=== PATIENT | female | born 1960 | race African-American/Black ===

== ENCOUNTER 2017-01-07 14:13 | Inpatient (IN) ==
[2017-01-07] MEDS ORDERED: 0.9 % Sodium Chloride 1,000 ML IVC ONE ×2 (14:18→16:21)
[2017-01-07] MEDS ORDERED: Ipratropium/Albuterol Neb 3 ML IH ONE (14:20)
[2017-01-07] MEDS ORDERED: Ipratropium/Albuterol Neb 3 ML ONE (14:35)
--- NOTE | 2017-01-07 14:44 | Emergency Department Note ---
START Narrative - START START: I examined this patient and my medical decision-making was reviewed with the EXPLOSIVE OPERATOR FUSE/PA/Advanced Practice Nurse/Resident Physician. I agree with the documented findings, disposition and treatment plan as described except to the extent set forth below. Patient to ED from a dog day care[facility]. Started getting short of breath around 1: 30. Patient has Cristina's. On examination she makes eye contact. She nods appropriately. She is tachypneic with some accessory muscle use. Diffuse rhonchi. Left leg contracted. Plan. Dyspnea workup. Nebs. We will trial BiPAP. Awaiting family arrival. Patient with a large infiltrate on chest x-ray. We will check CTA. Starting antibiotic. 35 minutes of critical care exclusive of separately billable procedures.
[2017-01-07] MEDS ORDERED: *HR* LORazepam 2 MG/ML VIAL IVP ONE (14:55)
[2017-01-07] MEDS ORDERED: Meropenem 1,000 MG in 0.9 % Sodium Chloride Mini Bag 100 ML IVPB STA (15:01)
[2017-01-07 15:02] LABS: VBG HCO3 30.5 mEq/L (21-27); VBG PH 7.43 pH Units (7.32-7.42)
[2017-01-07] MEDS ORDERED: Levofloxacin 500 MG/100 ML 500 MG/100 ML BAG IVPB ONE (15:03)
[2017-01-07 15:05] LABS: Basophils # 0.1 K/mcL (0.0-0.2); Basophils % 0.2 %; Hemoglobin 11.3 g/dL (11.5-15.4); Immature Granulocytes % 1.6 % (0-4); Mean Corpuscular HGB Conc 33.2 g/dL (31.6-35.5); Mean Corpuscular Hemoglobin 29.6 pg (28.0-33.3); Mean Platelet Volume 10.3 fL (9.4-12.4); Monocytes # 0.6 K/mcL (0.0-1.3); Monocytes % 2.3 %; Neutrophils # 21.8 K/mcL (1.6-8.9); Platelet Count 421 K/mcL (140-400); Red Blood Count 3.82 M/mcL (3.82-4.97); Red Cell Distribution Width 12.8 % (11.5-14.5); Segmented Neutrophils % 91.9 %
[2017-01-07 15:07] LABS: INR 1.2; Prothrombin Time 12.6 Seconds (9.4-12.1)
[2017-01-07 15:14] LABS: Alanine Aminotransferase 157 Units/L (0-55); Albumin/Globulin Ratio 0.3 (1.1-2.2); Alkaline Phosphatase 297 Units/L (38-126); Aspartate Amino Transferase 39 Units/L (5-34); BUN/Creatinine Ratio 33 (6-26); Bilirubin,Direct 0.5 mg/dL (0.0-0.5); Bilirubin,Indirect 0.1 mg/dL (0.0-1.2); Bilirubin,Total 0.6 mg/dL (0.2-1.2); Blood Urea Nitrogen 28 mg/dL (7-20); Calcium 9.7 mg/dL (8.6-10.8); Carbon Dioxide 29 mEq/L (19-29); Chloride 100 mEq/L (98-109); Globulin 4.5 g/dL (2.4-3.5); Glucose 143 mg/dL (70-99); Magnesium 1.3 mg/dL (1.6-2.6); Osmolality,Calculated 290 (280-300); Phosphorous 2.3 mg/dL (2.3-4.7); Potassium 3.9 mEq/L (3.5-4.5); Sodium 136 mEq/L (136-145); eGFR For African Americans > 60 (> 60); eGFR For Non-African Americans > 60 (> 60)
[2017-01-07 15:15] LABS: Albumin 1.5 g/dL (3.5-5.0)
[2017-01-07 16:16] LABS: Bilirubin,Urine Small (Negative); Blood,Urine Small (Negative); Clarity,Urine Cloudy (Clear); Color,Urine Dark Yellow (Yellow); Glucose,Urine (UA) Normal (Normal); Ketones,Urine Negative (Negative); Leukocyte Esterase,Urine Small (Negative); Nitrite,Urine Negative (Negative); Protein,Urine 30 mg/dL (Neg-Trace); Specific Gravity,Urine 1.025 (1.010-1.025); Urobilinogen,Urine Normal (Normal)
[2017-01-07 16:18] LABS: Bacteria,Urine Few per hpf (None-Few); RBC,Urine 15-30 per hpf (0-3); Squamous Epithelial Cell,Urine Many per lpf (None-Few); WBC,Urine 15-30 per hpf (0-3)
[2017-01-07 16:28] LABS: Hyaline Casts,Urine Moderate per lpf (None-Few); Renal Epithelial Cells,Urine Few per hpf (None-Few)
--- NOTE | 2017-01-07 17:08 | Emergency Department Note ---
Disposition Clinical Impression: Septic shock Pneumonia Qualifiers: Pneumonia type: aspiration pneumonia Aspiration pneumonia type: unspecified Laterality: bilateral Lung location: lower lobe of lung Qualified Code(s): J69.0 - Pneumonitis due to inhalation of food and vomit Disposition: Admitted As Inpatient Condition: Serious Time of Disposition: 17:34 SOB HPI - General Chief Complaint: ED Shortness of Breath/Dyspnea Stated Complaint: DELMA Time Seen by Provider: 01/07/17 14:18 Source: patient Limitations: no limitations Nursing Notes Reviewed: Yes Vital Signs Reviewed: Yes - History of Present Illness Patient has no history of [place]'s. Patient presents for evaluation of shortness of breath. Patient is able to respond with yes and no questions as reported baseline. Patient was found to be hypoxic upon arrival. Patient arrives receiving high flow nasal cannula. Mild tachypnea. Patient has diffuse rhonchorous sounds with some associated wheezing. Patient's paperwork states full code. - Related Data Home Medications Medication Instructions Recorded Confirmed Bupropion HCl [Wellbutrin Xl] 300 mg PO DAILY 01/07/17 01/07/17 Cetirizine HCl [Zyrtec] 10 mg PO DAILY 01/07/17 01/07/17 Escitalopram [Lexapro] 20 mg PO DAILY 01/07/17 01/07/17 Haloperidol [Haldol] 1.5 mg PO BID 01/07/17 01/07/17 Lactose-Reduced Food [Ensure Plus] 1 bottle PO 5XD 01/07/17 01/07/17 Naproxen [Naprosyn] 500 mg PO BID 01/07/17 01/07/17 Omeprazole [PriLOSEC] 20 mg PO DAILY 01/07/17 01/07/17 Simvastatin [Zocor] 40 mg PO HS 01/07/17 01/07/17 Water for Irrigation (sterile) 100 ml IR 10XD 01/07/17 01/07/17 [Water for irrigation (sterile)] traZODone [TraZODone] 50 mg PO HS PRN 01/07/17 01/07/17 Allergies Allergy/AdvReac Type Severity Reaction Status Date / Time Penicillins Allergy Rash Verified 08/26/16 18:03 Limitations: ROS unobtainable due to patients medical condition Past Medical History - Past Medical History Medical history: Reports: arthritis, dementia, GERD, hyperlipidemia, hypertension, other Psychiatric history: Reports: depression 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 Not conversant. Mild tachypnea. Eyes: anicteric sclerae, moist conjunctivae; PERRL HENT: Atraumatic; oropharynx clear with moist mucous membranes and no mucosal ulcerations Neck: Normal inspection; Trachea midline; FROM, supple Lungs: Diffuse rhonchorous lung sounds with wheezing. CV: RRR, Abdomen: Soft, non-tender; no rebound or gaurding Extremities: No peripheral edema or extremity lymphadenopathy Skin: Normal temperature; no rash, ulcers or lesions Neuro: awake and responds with headshaking but minimal communication. - General General appearance: alert, in no apparent distress Course - Reevaluation(s) Reevaluation #1: Pt not tolerating BIPAP. Will place on face-mask. Reevaluation #2: Pt tolerating facemask. - Consultations Consultation #1: Discussed with hospitalistJeremiah. Patient accepted for admission. 1706. Vital Signs Temperature 97.8 F 01/07/17 14:15 Pulse Rate 97 01/07/17 14:15 Respiratory Rate 16 01/07/17 14:15 Blood Pressure 93/66 01/07/17 14:15 O2 Sat by Pulse Oximetry 88 01/07/17 14:15 Temperature 98.4 F 01/09/17 19:48 Pulse Rate 67 01/09/17 22:00 Respiratory Rate 15 01/09/17 22:00 Blood Pressure 89/48 01/09/17 22:00 O2 Sat by Pulse Oximetry 94 01/09/17 22:00 Oxygen Delivery Oxygen Delivery Simple Mask Shortness of Breath/Dyspnea - Medical Records Medical records reviewed: Yes I reviewed the patient's medical records. - Lab Data Lab results reviewed: Yes I reviewed the patient's lab results. Result diagrams: 01/09/17 02:37 01/09/17 01:02 Lab Results 01/07/17 01/07/17 01/07/17 Range/Units 14:46 14:46 14:46 WBC 23.7 H (4.3-11.1) K/mcL RBC 3.82 (3.82-4.97) M/mcL Hgb 11.3 L (11.5-15.4) g/dL Hct 34.0 L (35.3-44.9) % MCV 89.0 (83.0-100.0) fL MCH 29.6 (28.0-33.3) pg MCHC 33.2 (31.6-35.5) g/dL RDW 12.8 (11.5-14.5) % Plt Count 421 H (140-400) K/mcL MPV 10.3 (9.4-12.4) fL Immature Gran % 1.6 (0-4) % Seg Neutrophils % 91.9 % Lymphocytes % 4.0 % Monocytes % 2.3 % Eosinophils % 0.0 % Basophils % 0.2 % Neutrophils # 21.8 H (1.6-8.9) K/mcL Lymphocytes # 1.0 (0.6-4.6) K/mcL Monocytes # 0.6 (0.0-1.3) K/mcL Eosinophils # 0.0 (0.0-0.6) K/mcL Basophils # 0.1 (0.0-0.2) K/mcL Platelet Estimate Slight increase H (Normal) PT 12.6 H (9.4-12.1) Seconds INR 1.2 VBG pH (7.32-7.42) pH Units VBG pCO2 (41-51) mmHg VBG pO2 (25-40) mmHg VBG HCO3 (21-27) mEq/L Sodium 136 (136-145) mEq/L Potassium 3.9 (3.5-4.5) mEq/L Chloride 100 (98-109) mEq/L Carbon Dioxide 29 (19-29) mEq/L BUN 28 H (7-20) mg/dL Creatinine 0.86 (0.57-1.11) mg/dL Est GFR ( Amer) > 60 (> 60) Est GFR (Non-Af Amer) > 60 (> 60) BUN/Creatinine Ratio 33 H (6-26) Glucose 143 H (70-99) mg/dL Calculated Osmolality 290 (280-300) Lactic Acid (0.5-2.2) mmol/L Calcium 9.7 (8.6-10.8) mg/dL Phosphorus 2.3 (2.3-4.7) mg/dL Magnesium 1.3 L (1.6-2.6) mg/dL Total Bilirubin 0.6 (0.2-1.2) mg/dL Direct Bilirubin 0.5 (0.0-0.5) mg/dL Indirect Bilirubin 0.1 (0.0-1.2) mg/dL AST 39 H (5-34) Units/L ALT 157 H (0-55) Units/L Alkaline Phosphatase 297 H (38-126) Units/L Troponin I (0-0.03) ng/mL C-Reactive Protein (Less than 5) mg/L Serum Total Protein 6.0 (6.0-8.3) g/dL Albumin 1.5 L (3.5-5.0) g/dL Globulin 4.5 H (2.4-3.5) g/dL Albumin/Globulin Ratio 0.3 L (1.1-2.2) Urine Color (Yellow) Urine Clarity (Clear) Urine pH (5.0-8.0) pH Units Ur Specific [place] (1.010-1.025) Urine Protein (Neg-Trace) mg/dL Urine Glucose (UA) (Normal) mg/dL Urine Ketones (Negative) mg/dL Urine Blood (Negative) Urine Nitrite (Negative) Urine Bilirubin (Negative) Urine Urobilinogen (Normal) mg/dL Ur Leukocyte Esterase (Negative) Urine Microscopic RBC (0-3) per hpf Urine Microscopic WBC (0-3) per hpf Ur Squamous Epith Cells (None-Few) per lpf Ur Renal Epithelial Cell (None-Few) per hpf Urine Bacteria (None-Few) per hpf Hyaline Casts (None-Few) per lpf Ur Culture Indicated? (NO) 01/07/17 01/07/17 01/07/17 Range/Units 14:46 14:46 14:46 WBC (4.3-11.1) K/mcL RBC (3.82-4.97) M/mcL Hgb (11.5-15.4) g/dL Hct (35.3-44.9) % MCV (83.0-100.0) fL MCH (28.0-33.3) pg MCHC (31.6-35.5) g/dL RDW (11.5-14.5) % Plt Count (140-400) K/mcL MPV (9.4-12.4) fL Immature Gran % (0-4) % Seg Neutrophils % % Lymphocytes % % Monocytes % % Eosinophils % % Basophils % % Neutrophils # (1.6-8.9) K/mcL Lymphocytes # (0.6-4.6) K/mcL Monocytes # (0.0-1.3) K/mcL Eosinophils # (0.0-0.6) K/mcL Basophils # (0.0-0.2) K/mcL Platelet Estimate (Normal) PT (9.4-12.1) Seconds INR VBG pH 7.43 H (7.32-7.42) pH Units VBG pCO2 46 (41-51) mmHg VBG pO2 32 (25-40) mmHg VBG HCO3 30.5 H (21-27) mEq/L Sodium (136-145) mEq/L Potassium (3.5-4.5) mEq/L Chloride (98-109) mEq/L Carbon Dioxide (19-29) mEq/L BUN (7-20) mg/dL Creatinine (0.57-1.11) mg/dL Est GFR ( Amer) (> 60) Est GFR (Non-Af Amer) (> 60) BUN/Creatinine Ratio (6-26) Glucose (70-99) mg/dL Calculated Osmolality (280-300) Lactic Acid 3.3 H (0.5-2.2) mmol/L Calcium (8.6-10.8) mg/dL Phosphorus (2.3-4.7) mg/dL Magnesium (1.6-2.6) mg/dL Total Bilirubin (0.2-1.2) mg/dL Direct Bilirubin (0.0-0.5) mg/dL Indirect Bilirubin (0.0-1.2) mg/dL AST (5-34) Units/L ALT (0-55) Units/L Alkaline Phosphatase (38-126) Units/L Troponin I 0.00 (0-0.03) ng/mL C-Reactive Protein (Less than 5) mg/L Serum Total Protein (6.0-8.3) g/dL Albumin (3.5-5.0) g/dL Globulin (2.4-3.5) g/dL Albumin/Globulin Ratio (1.1-2.2) Urine Color (Yellow) Urine Clarity (Clear) Urine pH (5.0-8.0) pH Units Ur Specific [place] (1.010-1.025) Urine Protein (Neg-Trace) mg/dL Urine Glucose (UA) (Normal) mg/dL Urine Ketones (Negative) mg/dL Urine Blood (Negative) Urine Nitrite (Negative) Urine Bilirubin (Negative) Urine Urobilinogen (Normal) mg/dL Ur Leukocyte Esterase (Negative) Urine Microscopic RBC (0-3) per hpf Urine Microscopic WBC (0-3) per hpf Ur Squamous Epith Cells (None-Few) per lpf Ur Renal Epithelial Cell (None-Few) per hpf Urine Bacteria (None-Few) per hpf Hyaline Casts (None-Few) per lpf Ur Culture Indicated? (NO) 01/07/17 01/07/17 01/07/17 Range/Units 15:55 17:14 20:59 WBC (4.3-11.1) K/mcL RBC (3.82-4.97) M/mcL Hgb (11.5-15.4) g/dL Hct (35.3-44.9) % MCV (83.0-100.0) fL MCH (28.0-33.3) pg MCHC (31.6-35.5) g/dL RDW (11.5-14.5) % Plt Count (140-400) K/mcL MPV (9.4-12.4) fL Immature Gran % (0-4) % Seg Neutrophils % % Lymphocytes % % Monocytes % % Eosinophils % % Basophils % % Neutrophils # (1.6-8.9) K/mcL Lymphocytes # (0.6-4.6) K/mcL Monocytes # (0.0-1.3) K/mcL Eosinophils # (0.0-0.6) K/mcL Basophils # (0.0-0.2) K/mcL Platelet Estimate (Normal) PT (9.4-12.1) Seconds INR VBG pH (7.32-7.42) pH Units VBG pCO2 (41-51) mmHg VBG pO2 (25-40) mmHg VBG HCO3 (21-27) mEq/L Sodium (136-145) mEq/L Potassium (3.5-4.5) mEq/L Chloride (98-109) mEq/L Carbon Dioxide (19-29) mEq/L BUN (7-20) mg/dL Creatinine (0.57-1.11) mg/dL Est GFR ( Amer) (> 60) Est GFR (Non-Af Amer) (> 60) BUN/Creatinine Ratio (6-26) Glucose (70-99) mg/dL Calculated Osmolality (280-300) Lactic Acid 2.9 H 1.6 (0.5-2.2) mmol/L Calcium (8.6-10.8) mg/dL Phosphorus (2.3-4.7) mg/dL Magnesium (1.6-2.6) mg/dL Total Bilirubin (0.2-1.2) mg/dL Direct Bilirubin (0.0-0.5) mg/dL Indirect Bilirubin (0.0-1.2) mg/dL AST (5-34) Units/L ALT (0-55) Units/L Alkaline Phosphatase (38-126) Units/L Troponin I (0-0.03) ng/mL C-Reactive Protein (Less than 5) mg/L Serum Total Protein (6.0-8.3) g/dL Albumin (3.5-5.0) g/dL Globulin (2.4-3.5) g/dL Albumin/Globulin Ratio (1.1-2.2) Urine Color Dark Yellow (Yellow) Urine Clarity Cloudy A (Clear) Urine pH 8.0 (5.0-8.0) pH Units Ur Specific [place] 1.025 (1.010-1.025) Urine Protein 30 H (Neg-Trace) mg/dL Urine Glucose (UA) Normal (Normal) mg/dL Urine Ketones Negative (Negative) mg/dL Urine Blood Small H (Negative) Urine Nitrite Negative (Negative) Urine Bilirubin Small H (Negative) Urine Urobilinogen Normal (Normal) mg/dL Ur Leukocyte Esterase Small H (Negative) Urine Microscopic RBC 15-30 H (0-3) per hpf Urine Microscopic WBC 15-30 H (0-3) per hpf Ur Squamous Epith Cells Many H (None-Few) per lpf Ur Renal Epithelial Cell Few (None-Few) per hpf Urine Bacteria Few (None-Few) per hpf Hyaline Casts Moderate H (None-Few) per lpf Ur Culture Indicated? YES A (NO) 01/07/17 Range/Units 20:59 WBC (4.3-11.1) K/mcL RBC (3.82-4.97) M/mcL Hgb (11.5-15.4) g/dL Hct (35.3-44.9) % MCV (83.0-100.0) fL MCH (28.0-33.3) pg MCHC (31.6-35.5) g/dL RDW (11.5-14.5) % Plt Count (140-400) K/mcL MPV (9.4-12.4) fL Immature Gran % (0-4) % Seg Neutrophils % % Lymphocytes % % Monocytes % % Eosinophils % % Basophils % % Neutrophils # (1.6-8.9) K/mcL Lymphocytes # (0.6-4.6) K/mcL Monocytes # (0.0-1.3) K/mcL Eosinophils # (0.0-0.6) K/mcL Basophils # (0.0-0.2) K/mcL Platelet Estimate (Normal) PT (9.4-12.1) Seconds INR VBG pH (7.32-7.42) pH Units VBG pCO2 (41-51) mmHg VBG pO2 (25-40) mmHg VBG HCO3 (21-27) mEq/L Sodium (136-145) mEq/L Potassium (3.5-4.5) mEq/L Chloride (98-109) mEq/L Carbon Dioxide (19-29) mEq/L BUN (7-20) mg/dL Creatinine (0.57-1.11) mg/dL Est GFR ( Amer) (> 60) Est GFR (Non-Af Amer) (> 60) BUN/Creatinine Ratio (6-26) Glucose (70-99) mg/dL Calculated Osmolality (280-300) Lactic Acid (0.5-2.2) mmol/L Calcium (8.6-10.8) mg/dL Phosphorus (2.3-4.7) mg/dL Magnesium (1.6-2.6) mg/dL Total Bilirubin (0.2-1.2) mg/dL Direct Bilirubin (0.0-0.5) mg/dL Indirect Bilirubin (0.0-1.2) mg/dL AST (5-34) Units/L ALT (0-55) Units/L Alkaline Phosphatase (38-126) Units/L Troponin I (0-0.03) ng/mL C-Reactive Protein 315 H (Less than 5) mg/L Serum Total Protein (6.0-8.3) g/dL Albumin (3.5-5.0) g/dL Globulin (2.4-3.5) g/dL Albumin/Globulin Ratio (1.1-2.2) Urine Color (Yellow) Urine Clarity (Clear) Urine pH (5.0-8.0) pH Units Ur Specific [place] (1.010-1.025) Urine Protein (Neg-Trace) mg/dL Urine Glucose (UA) (Normal) mg/dL Urine Ketones (Negative) mg/dL Urine Blood (Negative) Urine Nitrite (Negative) Urine Bilirubin (Negative) Urine Urobilinogen (Normal) mg/dL Ur Leukocyte Esterase (Negative) Urine Microscopic RBC (0-3) per hpf Urine Microscopic WBC (0-3) per hpf Ur Squamous Epith Cells (None-Few) per lpf Ur Renal Epithelial Cell (None-Few) per hpf Urine Bacteria (None-Few) per hpf Hyaline Casts (None-Few) per lpf Ur Culture Indicated? (NO) - Radiology Data Radiology results reviewed: Yes I reviewed the patient's radiology results. - EKG Data EKG attestation: Yes I reviewed and interpreted this EKG. EKG shows normal: Reports: sinus rhythm Rate: Reports: tachycardia Rhythm: Reports: NSR [place]/QRS: Reports: normal Interpretation: Reports: no acute changes
[2017-01-07] MEDS ORDERED: Magnesium Sulfate 2 GM in D5% in Water 100 ML IVPB ONE (20:10)
[2017-01-07] MEDS ORDERED: Naloxone 0.4 MG/ML INJ IVP PRN (20:38)
--- NOTE | 2017-01-07 20:38 | Internal Med History&Physical ---
Date of Encounter: 01/08/17 Time of Encounter: 20:37 Assessment and Plan (1) Pneumonia Current visit: Yes Status: Acute Clinically suspect aspiration pneumonia - possibly oropharyngeal secretions versus gastric contents. Emperically treat with meropenem and levofloxacin. Sputum cultures and supportive care. (2) Sepsis Current visit: Yes Status: Acute Likely related to pneumonia. Treat with antibiotics as above. IV fluids. Patient had elevated lactate levels which is trending down Qualifiers: Sepsis type: sepsis due to unspecified organism Qualified Code(s): A41.9 - Sepsis, unspecified organism (3) Acute respiratory failure Current visit: Yes Status: Acute Secondary to pneumonia. On supplemental oxygen Qualifiers: Respiratory failure complication: hypoxia Qualified Code(s): J96.01 - Acute respiratory failure with hypoxia (4) Lactic acidosis Current visit: Yes Status: Acute Likely pneumonia/sepsis. Patient is treated with antibiotics and IV fluids. Lactate level is trending down. 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 Aspiration precautions. (7) Hypomagnesemia Current visit: Yes Status: Acute Replenish magnesium (8) DVT prophylaxis Current visit: Yes Status: Acute Subcutaneous heparin Internal Medicine - H&P: HPI Chief complaint: Shortness of breath Admitted From: Emergency Dept Plans for Post Hospital Care: Home History of present illness: Ms. Brewer is a 56 year old female with h/o Huntingtons disease, s/p PEG tube placement, dementia, GERD, hypertension. She was brought to the emergency department from the daycare center, for shortness of breath. Patient is not able to give clinical details and no family members at the bedside. I reviewed the records from the emergency department and the RN. Pt was noted to have pneumonia on CXR. CTA chest was done, which reported multifocal pneumonia. She was given IV fluids, meropenem and levofloxacin. She is admitted to the hospitalist service for further workup and management. Past Med Surg Social Fam HX - Past Medical History Medical history: arthritis, dementia, GERD, hyperlipidemia, hypertension, other Psychiatric history: depression - Social History Smoking Status: Never smoker Smokeless Tobacco Status: No Alcohol use: none Drug use: none - Family History Mother Adopted: No Living Status: Cause of : huntingtons Hx Family Cardiac Disorders: No Hx Family Respiratory Disorders: Yes Hx Family Cancer: No Hx Family GI Disorders: No Hx Family Genitourinary Disorders: No Hx Family Endocrine Disorder: Yes (Diabetes) Hx Family Musculoskeletal Disorders: Yes (huntingtons) Hx Family Neuromuscular Disorders: No Hx Family Neurologic Disorders: No Hx Family HEENT Disorders: No Hx Family Autoimmune Disorders: No Hx Family Reproductive Disorders: No Hx Family Psychosocial Disorders: No Hx Family Medical Disorders: No Internal Medicine - H&P: Meds Bupropion HCl [Wellbutrin Xl] 300 mg PO DAILY 01/07/17 [History] Cetirizine HCl [Zyrtec] 10 mg PO DAILY 01/07/17 [History] Escitalopram [Lexapro] 20 mg PO DAILY 01/07/17 [History] Haloperidol [Haldol] 1.5 mg PO BID 01/07/17 [History] Lactose-Reduced Food [Ensure Plus] 1 bottle PO 5XD 01/07/17 [History] Naproxen [Naprosyn] 500 mg PO BID 01/07/17 [History] Omeprazole [PriLOSEC] 20 mg PO DAILY 01/07/17 [History] Simvastatin [Zocor] 40 mg PO HS 01/07/17 [History] Water for Irrigation (sterile) [Water for irrigation (sterile)] 100 ml IR 10XD 01/07/17 [History] traZODone [TraZODone] 50 mg PO HS PRN 01/07/17 [History] Allergies Penicillins Allergy (Verified 08/26/16 18:03) Rash ROS unobtainable: due to mental status - Constitutional Vitals: Temp Pulse Resp BP Pulse Ox 99.1 F 90 17 130/79 92 01/07/17 19:46 01/07/17 19:46 01/07/17 19:46 01/07/17 19:46 01/07/17 19:46 Exam: General: Not in acute distress at the time of my evaluation. Not responding to questions at my evaluation HEENT: Oral mucosa is dry. No conjunctival palor or scleral icterus Neck: No obvious neck swellings Lungs: Transmitted sounds all over the lung meeks Cardiac: Heart sounds masked by transmitted sounds in the chest Abdomen: Soft, non tender. Bowel sounds present. PEG tube in place Genitourinary: Pitts catheter Neurological: Pt has involuntary movements of both upper extremities. Not able to follow commands or answer the questions Psych: Not aggressive or agitated Extremities: no significant leg edema Skin: No generalized rash Internal Med - H&P Results - Labs CBC & Chem 7: 01/08/17 05:26 01/08/17 05:26 - Impressions ITS Impressions Chest X-Ray 01/07/17 14:18 IMPRESSION: The above findings may be due to a mass and metastatic disease or multifocal pneumonia. Recommend further evaluation with a CT of the chest, preferably with intravenous contrast if renal status allows D/ / Rojelio Reynolds MD / Rojelio Reynolds MD Interpreting Provider: Rojelio Reynolds MD Chest CTA 01/07/17 14:57 IMPRESSION: No evidence of pulmonary embolism. Multiple bilateral airspace disease with a dense consolidation of the right lower lobe. These changes most likely represent multifocal pneumonia. Follow-up examination is suggested to ensure resolution and exclude underlying malignancy. Mild mediastinal adenopathy. Old compression fracture of T6 with loss of 70% of vertebral body height. D/ / 01/07/2017 16:25:28 Jorge Daniels MD / geovany Interpreting Provider: Jorge Daniels MD
[2017-01-07] MEDS ORDERED: Ipratropium/Albuterol Neb 3 ML IH PRN (20:44)
[2017-01-07] MEDS ORDERED: Levofloxacin 500 MG/100 ML 500 MG/100 ML BAG IVPB SCH (21:00)
[2017-01-07] MEDS: 0.9 % Sodium Chloride 1,000 ML IVC SCH (22:39)
[2017-01-08] MEDS: *HR* Heparin 5,000 UNIT/ML VIAL SQ SCH ×3 (00:21→15:38)
[2017-01-08] MEDS: Meropenem 1,000 MG in 0.9 % Sodium Chloride Mini Bag 100 ML IVPB SCH ×3 (00:24→15:37)
[2017-01-08 06:14] LABS: Basophils % 0.1 %; Hematocrit 29.5 % (35.3-44.9); Hemoglobin 9.8 g/dL (11.5-15.4); Immature Granulocytes % 3.2 % (0-4); Lymphocytes # 0.6 K/mcL (0.6-4.6); Lymphocytes % 3.8 %; Mean Corpuscular HGB Conc 33.2 g/dL (31.6-35.5); Mean Corpuscular Hemoglobin 29.2 pg (28.0-33.3); Mean Corpuscular Volume 87.8 fL (83.0-100.0); Mean Platelet Volume 10.3 fL (9.4-12.4); Monocytes # 0.5 K/mcL (0.0-1.3); Monocytes % 3.1 %; Neutrophils # 14.1 K/mcL (1.6-8.9); Platelet Count 391 K/mcL (140-400); Red Blood Count 3.36 M/mcL (3.82-4.97); Segmented Neutrophils % 89.8 %
[2017-01-08 06:27] LABS: BUN/Creatinine Ratio 40 (6-26); Blood Urea Nitrogen 29 mg/dL (7-20); Carbon Dioxide 22 mEq/L (19-29); Chloride 108 mEq/L (98-109); Glucose 104 mg/dL (70-99); Magnesium 1.6 mg/dL (1.6-2.6); Osmolality,Calculated 296 (280-300); Potassium 3.8 mEq/L (3.5-4.5); Sodium 140 mEq/L (136-145); eGFR For African Americans > 60 (> 60); eGFR For Non-African Americans > 60 (> 60)
[2017-01-08 06:28] LABS: Phosphorous 4.9 mg/dL (2.3-4.7)
[2017-01-08 06:55] LABS: Platelet Estimate Increased (Normal); Toxic Granulation Present (Not Present)
[2017-01-08] MEDS: Lactobacillus 1 EACH CAP.SPRINK GTUBE SCH ×2 (08:06→22:14)
[2017-01-08] MEDS: 0.9 % Sodium Chloride 1,000 ML IVC SCH (08:06)
[2017-01-08 09:49] LABS: Albumin/Globulin Ratio 0.3 (1.1-2.2); Bilirubin,Direct 0.3 mg/dL (0.0-0.5); Bilirubin,Indirect 0.1 mg/dL (0.0-1.2); Bilirubin,Total 0.4 mg/dL (0.2-1.2); Globulin 4.4 g/dL (2.4-3.5); Total Protein 5.9 g/dL (6.0-8.3)
[2017-01-08 09:50] LABS: Albumin 1.5 g/dL (3.5-5.0)
[2017-01-08] MEDS ORDERED: *HR* Succinylcholine 200 MG/10 ML VIAL IVP ONE (13:57)
[2017-01-08] MEDS ORDERED: *HR* Etomidate 20 MG/10 ML AMPUL IVP ONE (13:57)
--- NOTE | 2017-01-08 14:38 | Internal Med Progress Note ---
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 (2) Sepsis Current Visit: Yes Status: Acute Assessment and plan: Leukocytosis, low body temperature, tachypnea and tachycardia, white count has improved, likely secondary to underlying multifocal pneumonia, continued to treat with IV antibiotics. Qualifiers: Sepsis type: sepsis due to unspecified organism Qualified Code(s): A41.9 - Sepsis, unspecified organism (3) Elevated transaminase level Current Visit: Yes Status: Acute Assessment and plan: Levels are trending down, continue to monitor it. (4) Lactic acidosis Current Visit: Yes Status: Acute Assessment and plan: Likely related to sepsis, resolved, continue to treat underlying multifocal pneumonia with IV antibiotics. 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 (6) Hypomagnesemia Current Visit: Yes Status: Acute Assessment and plan: Replaced last night and the level improved this morning. (7) DVT prophylaxis Current Visit: Yes Status: Acute Assessment and plan: Heparin subcutaneous 3 times a day. - Subjective Interval history: Patient seen and examined. Patient has a history of Drifting's disease, likely advanced, she is not able to communicate or follow commands properly. No acute overnight events. - Constitutional Vitals: Temp Pulse Resp BP Pulse Ox 95.7 F L 98 28 148/86 99 01/08/17 11:20 01/08/17 11:20 01/08/17 11:20 01/08/17 11:20 01/08/17 11:20 General appearance: Present: A&O X 0. Absent: cooperative, answers questions appropriately - Head Head exam: Present: atraumatic, normocephalic - Eye Eye exam: Present: PERRL, conjuntiva pink, sclera anicteric Pupils: Present: PERRL - Neck Neck exam general surgery: Present: supple, trachea midline. Absent: lymphadenopathy - Respiratory Respiratory exam: Present: rhonchi (Diffusedly bilateral). Absent: accessory muscle use, rales, wheezes - Cardiovascular Cardiovascular exam: Present: RRR, +S1, +S2. Absent: diastolic murmur, gallop, rubs, systolic murmur - GI/Abdominal GI/Abdominal exam: Present: normal bowel sounds, soft, no peritoneal signs. Absent: distended, tenderness - Extremities Exam Extremities exam: Present: warm, radial pulses palpable and symetrical. Absent : calf tenderness, cyanotic, pedal edema - Neurological Exam Neurological exam: Absent: alert, oriented X3 Additional comments: Limited neuro exam due to underlying advanced Drifting's disease - Skin Skin exam: Present: dry, intact Internal Medicine: Result - Labs CBC & Chem 7: 01/08/17 05:26 01/08/17 05:26 Labs: Short CBC 01/08/17 Range/Units 05:26 WBC 15.7 H (4.3-11.1) K/mcL Hgb 9.8 L D (11.5-15.4) g/dL Hct 29.5 L (35.3-44.9) % Plt Count 391 (140-400) K/mcL Neutrophils # 14.1 H (1.6-8.9) K/mcL BMP 01/08/17 05:26 Sodium 140 Potassium 3.8 Chloride 108 Carbon Dioxide 22 BUN 29 H Creatinine 0.72 Glucose 104 H Calcium 9.0 Liver Function 01/08/17 Range/Units 09:18 Total Bilirubin 0.4 (0.2-1.2) mg/dL Direct Bilirubin 0.3 (0.0-0.5) mg/dL AST 31 (5-34) Units/L ALT 115 H (0-55) Units/L Alkaline Phosphatase 238 H (38-126) Units/L Albumin 1.5 L (3.5-5.0) g/dL - ABG Interpretation ABG results: PT/INR, D-dimer PT 12.6 Seconds (9.4-12.1) H 01/07/17 14:46 Consult Discharge Plan - Plan Referrals: Mikie Etienne MD [Partnered Physician] - 01/29/17 11:15 am
--- NOTE | 2017-01-08 14:42 | Electrocardiograph Report ---
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
[2017-01-08] MEDS: Ipratropium/Albuterol Neb 3 ML IH SCH ×3 (15:40→21:28)
[2017-01-08] MEDS ORDERED: Levofloxacin 500 MG/100 ML 500 MG/100 ML BAG IVPB SCH (17:00)
[2017-01-08 21:48] LABS: ABG Base Excess 2.1 mEq/L (-2.0 to 3.0); ABG HCO3 24.2 mEQ/L (21-27); ABG Oxygen Saturation 94 % (95-98); ABG PCO2 29 mmHg (35-45); ABG PH 7.53 pH Units (7.32-7.45); ABG PO2 64 mmHg (85-104); ABG TCO2 25.1 mEq/L (20-26)
[2017-01-08] MEDS ORDERED: Furosemide 40 MG/4 ML VIAL IVP ONE (21:48)
[2017-01-08] MEDS ORDERED: methylPREDNISolone 125 MG/2 ML VIAL IVP ONE (21:50)
[2017-01-08 21:52] LABS: Blood Gas FiO2 50 %
[2017-01-08] MEDS ORDERED: *HR* LORazepam 2 MG/ML VIAL IVP ONE (22:41)
[2017-01-08] MEDS ORDERED: *HR* LORazepam 2 MG/ML VIAL ONE (22:43)
[2017-01-09] MEDS: 0.9 % Sodium Chloride 1,000 ML IVC SCH ×2 (00:28→00:29)
[2017-01-09] MEDS: *HR* Heparin 5,000 UNIT/ML VIAL SQ SCH (00:32)
[2017-01-09] MEDS: Meropenem 1,000 MG in 0.9 % Sodium Chloride Mini Bag 100 ML IVPB SCH (00:32)
[2017-01-09] MEDS ORDERED: FentaNYL (PF) 1,000 MCG in 0.9 % Sodium Chloride 80 ML IVC SCH ×2 (00:45→13:30)
[2017-01-09] MEDS ORDERED: Ipratropium/Albuterol Neb 3 ML IH SCH (01:00)
[2017-01-09 01:09] LABS: Hematocrit 30.4 % (35.3-44.9); Hemoglobin 10.1 g/dL (11.5-15.4); Mean Corpuscular HGB Conc 33.2 g/dL (31.6-35.5); Mean Corpuscular Hemoglobin 29.4 pg (28.0-33.3); Mean Corpuscular Volume 88.6 fL (83.0-100.0); Mean Platelet Volume 9.7 fL (9.4-12.4); Platelet Count 487 K/mcL (140-400); Red Blood Count 3.43 M/mcL (3.82-4.97); Red Cell Distribution Width 13.3 % (11.5-14.5)
[2017-01-09 01:30] LABS: BUN/Creatinine Ratio 43 (6-26); Blood Urea Nitrogen 35 mg/dL (7-20); Calcium 8.3 mg/dL (8.6-10.8); Carbon Dioxide 23 mEq/L (19-29); Chloride 109 mEq/L (98-109); Creatine Kinase 234 Units/L (29-168); Glucose 147 mg/dL (70-99); Magnesium 1.7 mg/dL (1.6-2.6); Osmolality,Calculated 307 (280-300); Potassium 3.6 mEq/L (3.5-4.5); Sodium 143 mEq/L (136-145); eGFR For African Americans > 60 (> 60); eGFR For Non-African Americans > 60 (> 60)
[2017-01-09] MEDS ORDERED: Naloxone 0.4 MG/ML INJ IVP PRN (01:32)
[2017-01-09 01:37] LABS: Lymphocytes # 0.5 K/mcL (0.6-4.6); Monocytes # 0.5 K/mcL (0.0-1.3); Neutrophils # 22.1 K/mcL (1.6-8.9); Platelet Estimate Increased (Normal); Toxic Granulation Present (Not Present)
[2017-01-09 01:38] LABS: Dohle Bodies Present (Not Present)
[2017-01-09] MEDS ORDERED: *HR* Heparin 5,000 UNIT/ML VIAL IVP ONE (01:39)
[2017-01-09] MEDS: Aspirin 325 MG TABLET GTUBE SCH ×2 (02:06→07:54)
[2017-01-09 02:46] LABS: Hematocrit 27.4 % (35.3-44.9); Mean Corpuscular HGB Conc 32.8 g/dL (31.6-35.5); Mean Corpuscular Hemoglobin 29.4 pg (28.0-33.3); Mean Corpuscular Volume 89.5 fL (83.0-100.0); Mean Platelet Volume 10.1 fL (9.4-12.4); Platelet Count 345 K/mcL (140-400); Red Blood Count 3.06 M/mcL (3.82-4.97); Red Cell Distribution Width 13.3 % (11.5-14.5)
[2017-01-09 02:53] LABS: INR 1.4; Prothrombin Time 14.8 Seconds (9.4-12.1)
[2017-01-09 02:56] LABS: Activated Partial Thrombo Time 20.3 Seconds (26.0-36.0)
[2017-01-09] MEDS ORDERED: 0.9 % Sodium Chloride 500 ML ONE ×2 (03:15→05:10)
[2017-01-09] MEDS ORDERED: 0.9 % Sodium Chloride 1,000 ML IVC ONE (03:15)
[2017-01-09] MEDS: Ipratropium/Albuterol Neb 3 ML IH SCH ×6 (03:57→23:46)
[2017-01-09] MEDS ORDERED: 0.9 % Sodium Chloride 1,000 ML ONE (04:07)
[2017-01-09] MEDS: Heparin 25,000 UNIT/500 ML D5W 25,000 UNIT/500 ML MLS IVC SCH (04:10)
[2017-01-09 04:39] LABS: ABG Base Excess 1.6 mEq/L (-2.0 to 3.0); ABG HCO3 25.7 mEQ/L (21-27); ABG Oxygen Saturation 97 % (95-98); ABG PCO2 37 mmHg (35-45); ABG PH 7.45 pH Units (7.32-7.45); ABG PO2 85 mmHg (85-104); ABG TCO2 26.8 mEq/L (20-26); Blood Gas FiO2 50 %
[2017-01-09] MEDS ORDERED: *HR* Ticagrelor 90 MG TABLET PO ONE (07:25)
[2017-01-09] MEDS ORDERED: Meropenem 1,000 MG in 0.9 % Sodium Chloride Mini Bag 100 ML IVPB SCH (08:00)
[2017-01-09] MEDS ORDERED: *HR* Heparin 5,000 UNIT/ML VIAL SQ SCH (08:00)
--- NOTE | 2017-01-09 08:06 | Pulmonology Consult Note ---
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 She was subsequently taken to the ICU and intubated. Her pressures have been hypotensive overnight with 1L fluid bolus, the patient has an arterial line in place, ST elevations on EKG, troponin elevated. Cardiology consulted. Plan to place CVC for pressure support. Will consult palliative for code status discussion, care planning with daughter who is POA. 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 Patient developed increasing hypoxia and respiratory distress yesterday evening , was intubated. She is currently intubated and on the ventilator. Will continue Levaquin and switch meropenem to cefepime for treatment of her pneumonia. Cardiovascular: Patient had EKG changes overnight with ST elevation noted in leads II, III, aVF and V3 through V6. Repeat EKG at [address] elevation. Troponin elevation at 2.68, 2.47, BNP 773. Patient is hypotensive after fluid bolus. Will require central line placement for pressor support. Will continue heparin gtt, ECHO pending. Cardiology has been consulted and we appreciate their recommendations. GI: Nutrition: Will continue tube feeds via PEG GI Prophylaxis protonix. Liver enzymes are elevated, will continue to trend Renal: No evidence of JUN, urine output over the last 8 hours is 1550 ml ID: Patient presented with leukocytosis which is improving, patient is being treated for multifocal pneumonia which was noted on CTA with cefepime and Levaquin. Heme/Onc: Has had decrease in hemoglobin, was noted to be 9 at 0237 this morning, decreased from 10 at 0100. Will repeat and continue to monitor DVT Prophylaxis Hep gtt Endocrine: Blood sugars 100-150 Lines: all lines checked and no evidence of infections Arterial line, PEG tube, alexander, peripheral Skin: skin care to prevent pressure ulcers per nursing routine care. 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 Brewer is a 56 y/o F with PMH of HD, s/p PEG placment, dementia, GERD, HTN, HLD who presented to the ED from [facility] for SOB . The patient lives with her daughter and is nonverbal and bedbound at baseline. Upon arrival she was found to have multifocal pneumonia. She was given IV fluids, meropenem, levofloxacin and admitted to [facility] for further management. Last evening, nursing staff noted that the patient had oxygenation saturations in the 70s, she required increasing amounts of oxygenation and eventually was placed on a nonrebreather mask at 15 L with respiratory distress and tachycardia. She required suctioning during this time and a thick green mucus was noted to be suctioned from the back of her throat. She received DuoNeb therapy at that time. ABG revealed a pH of 7.53, PCO2 29, PO2 64, HCO3 of 24.2, total CO2 25.1, O2 saturation 94. She was attempted to be placed on BiPAP however she refused to wear this. The patient was transferred to the ICU for intubation, at the time of arrival the patient was on a nonrebreather at 15 L with oxygen saturation of 88% in visible respiratory distress. The patient was successfully intubated with improvement in her oxygenation saturation. Nursing staff noted ST elevation on the cardiac cath tech in the room, an EKG was obtained that showed inferior NV with ST elevation. Dr. Garay was notified and noted change from prior EKG of NSR. Troponin was ordered, aspirin administered and a heparin drip started. She was noted to be hypotensive with systolic pressures in the 60s, map 63. The patient was given a 500 mL bolus of normal saline which increased pressures to the 70s systolic, map 62. An arterial line was inserted to obtain a more accurate blood pressure and a second 500 mL bolus of normal saline was given with blood pressures remaining in the 70s systolic, map 59. Troponin was elevated at 2.68. Cardiology was notified of EKG changes at [address] Sandoval. A repeat EKG was obtained which showed improvedment in ST Elevation. Cardiology at bedside to review the EKG findings. The patient remains hypotensive in the 80's systolic. Past Med Surg Social Fam HX - Past Medical History Medical history: arthritis, dementia, GERD, hyperlipidemia, hypertension, other Psychiatric history: depression - Social History Smoking Status: Never smoker Smokeless Tobacco Status: No Alcohol use: none Drug use: none - Family History Mother Adopted: No Living Status: Cause of : huntingtons Hx Family Cardiac Disorders: No Hx Family Respiratory Disorders: Yes Hx Family Cancer: No Hx Family GI Disorders: No Hx Family Genitourinary Disorders: No Hx Family Endocrine Disorder: Yes (Diabetes) Hx Family Musculoskeletal Disorders: Yes (huntingtons) Hx Family Neuromuscular Disorders: No Hx Family Neurologic Disorders: No Hx Family HEENT Disorders: No Hx Family Autoimmune Disorders: No Hx Family Reproductive Disorders: No Hx Family Psychosocial Disorders: No Hx Family Medical Disorders: No Medications and Allergies Bupropion HCl [Wellbutrin Xl] 300 mg PO DAILY 01/07/17 [History] Cetirizine HCl [Zyrtec] 10 mg PO DAILY 01/07/17 [History] Escitalopram [Lexapro] 20 mg PO DAILY 01/07/17 [History] Haloperidol [Haldol] 1.5 mg PO BID 01/07/17 [History] Lactose-Reduced Food [Ensure Plus] 1 bottle PO 5XD 01/07/17 [History] Naproxen [Naprosyn] 500 mg PO BID 01/07/17 [History] Omeprazole [PriLOSEC] 20 mg PO DAILY 01/07/17 [History] Simvastatin [Zocor] 40 mg PO HS 01/07/17 [History] Water for Irrigation (sterile) [Water for irrigation (sterile)] 100 ml IR 10XD 01/07/17 [History] traZODone [TraZODone] 50 mg PO HS PRN 01/07/17 [History] Allergies Penicillins Allergy (Verified 08/26/16 18:03) Rash ROS unobtainable: due to endotracheal tube Physical Examination Vital Signs: Vital Signs, Last 4 Hours Temp Pulse Resp BP Pulse Ox 01/09/17 07:25 17 91/56 94 01/09/17 06:00 74 18 86/49 94 01/09/17 05:52 19 96 01/09/17 05:00 75 17 104/83 95 01/09/17 04:45 98.9 F 01/09/17 04:00 80 18 70/49 94 01/09/17 03:57 20 100 General appearance: other (intubated and sedated) Eyes: nonicteric ENT: oropharynx dry Neck: supple, no lymphadenopathy, no JVD Effort: mildly labored Auscultation: bilateral: wheezes, rhonchi Cardiovascular: regular rate and rhythm Gastrointestinal: hypoactive bowel sounds, soft, non-tender, non-distended, other (PEG tube in left upper abdomen) Integumentary: normal Extremities: no cyanosis, no edema, no clubbing, pulses normal, cool pupils equal and round, unable to assess due to mental status Ventilator Settings Ventilator Settings: Ventilator Settings, Last 8 Hours Ventilator Mode VC+ Ventilator Mode VC+ Ventilator Mode VC+ Ventilator Mode VC+ Ventilator Mode VC+ Ventilator Mode VC+ Ventilator Mode VC+ Ventilator Mode VC+ Ventilator Tidal Volume 450 Setting Ventilator Tidal Volume 450 Setting Ventilator Tidal Volume 450 Setting Ventilator Tidal Volume 450 Setting Ventilator Tidal Volume 450 Setting Ventilator Tidal Volume 450 Setting Ventilator Tidal Volume 450 Setting Ventilator Tidal Volume 450 Setting Ventilator Respiratory Rate 12 Setting Ventilator Respiratory Rate 12 Setting Ventilator Respiratory Rate 12 Setting Ventilator Respiratory Rate 12 Setting Ventilator Respiratory Rate 12 Setting Ventilator Respiratory Rate 12 Setting Ventilator Respiratory Rate 12 Setting Ventilator Respiratory Rate 12 Setting Actual Respiratory Rate 17 Actual Respiratory Rate 19 Actual Respiratory Rate 22 Actual Respiratory Rate 12 Actual Respiratory Rate 12 Actual Respiratory Rate 25 Positive End Expiratory 5 Pressure Positive End Expiratory 5 Pressure Positive End Expiratory 5 Pressure Positive End Expiratory 5 Pressure Positive End Expiratory 5 Pressure Positive End Expiratory 5 Pressure Positive End Expiratory 5 Pressure Positive End Expiratory 5 Pressure Peak Inspiratory Airway 13 Pressure Peak Inspiratory Airway 17 Pressure Peak Inspiratory Airway 18 Pressure Peak Inspiratory Airway 21 Pressure Peak Inspiratory Airway 25 Pressure Peak Inspiratory Airway 22 Pressure Results - Laboratory Findings CBC and BMP: 01/09/17 02:37 01/09/17 01:02 ABG ABG pH 7.45 pH Units (7.32-7.45) 01/09/17 04:28 ABG pCO2 37 mmHg (35-45) 01/09/17 04:28 ABG pO2 85 mmHg (85-104) 01/09/17 04:28 ABG O2 Saturation 97 % (95-98) 01/09/17 04:28 PT/INR, D-dimer PT 14.8 Seconds (9.4-12.1) H 01/09/17 02:37 Abnormal lab findings: Abnormal lab results WBC 13.5 K/mcL (4.3-11.1) H 01/09/17 02:37 RBC 3.06 M/mcL (3.82-4.97) L 01/09/17 02:37 Hgb 9.0 g/dL (11.5-15.4) L 01/09/17 02:37 Hct 27.4 % (35.3-44.9) L 01/09/17 02:37 Neutrophils # 22.1 K/mcL (1.6-8.9) H 01/09/17 01:02 Lymphocytes # 0.5 K/mcL (0.6-4.6) L 01/09/17 01:02 Toxic Granulation Present (Not Present) A 01/09/17 01:02 Dohle Bodies Present (Not Present) A 01/09/17 01:02 Platelet Estimate Increased (Normal) H 01/09/17 01:02 PT 14.8 Seconds (9.4-12.1) H 01/09/17 02:37 APTT 20.3 Seconds (26.0-36.0) L 01/09/17 02:37 ABG Total CO2 26.8 mEq/L (20-26) H 01/09/17 04:28 VBG pH 7.43 pH Units (7.32-7.42) H 01/07/17 14:46 VBG HCO3 30.5 mEq/L (21-27) H 01/07/17 14:46 BUN 35 mg/dL (7-20) H 01/09/17 01:02 BUN/Creatinine Ratio 43 (6-26) H 01/09/17 01:02 Glucose 147 mg/dL (70-99) H 01/09/17 01:02 POC Glucose 131 (58-89) H 01/08/17 23:37 Calculated Osmolality 307 (280-300) H 01/09/17 01:02 Calcium 8.3 mg/dL (8.6-10.8) L 01/09/17 01:02 Phosphorus 4.9 mg/dL (2.3-4.7) H D 01/08/17 05:26 ALT 115 Units/L (0-55) H 01/08/17 09:18 Alkaline Phosphatase 238 Units/L (38-126) H 01/08/17 09:18 Creatine Kinase 234 Units/L (29-168) H 01/09/17 01:02 Troponin I 2.47 ng/mL (0-0.03) H* 01/09/17 07:12 C-Reactive Protein 315 mg/L (Less than 5) H 01/07/17 20:59 B-Natriuretic Peptide 773 pg/mL (0-100) H 01/09/17 02:37 Serum Total Protein 5.9 g/dL (6.0-8.3) L 01/08/17 09:18 Albumin 1.5 g/dL (3.5-5.0) L 01/08/17 09:18 Globulin 4.4 g/dL (2.4-3.5) H 01/08/17 09:18 Albumin/Globulin Ratio 0.3 (1.1-2.2) L 01/08/17 09:18 Prealbumin 4.0 mg/dL (16.0-38.0) L 01/08/17 09:18 Urine Clarity Cloudy (Clear) A 01/07/17 15:55 Urine Protein 30 mg/dL (Neg-Trace) H 01/07/17 15:55 Urine Blood Small (Negative) H 01/07/17 15:55 Urine Bilirubin Small (Negative) H 01/07/17 15:55 Ur Leukocyte Esterase Small (Negative) H 01/07/17 15:55 Urine Microscopic RBC 15-30 per hpf (0-3) H 01/07/17 15:55 Urine Microscopic WBC 15-30 per hpf (0-3) H 01/07/17 15:55 Ur Squamous Epith Cells Many per lpf (None-Few) H 01/07/17 15:55 Hyaline Casts Moderate per lpf (None-Few) H 01/07/17 15:55 Ur Culture Indicated? YES (NO) A 01/07/17 15:55 - Diagnostic Findings Chest x-ray: report reviewed, image reviewed CT scan - chest: report reviewed, image reviewed Additional studies: Chest CTA 01/07/17 14:57 IMPRESSION: No evidence of pulmonary embolism. Multiple bilateral airspace disease with a dense consolidation of the right lower lobe. These changes most likely represent multifocal pneumonia. Follow-up examination is suggested to ensure resolution and exclude underlying malignancy. Mild mediastinal adenopathy. Old compression fracture of T6 with loss of 70% of vertebral body height. D/ / 01/07/2017 16:25:28 Jorge Daniels MD / [email or web address] Interpreting Provider: Jorge Daniels MD Chest X-Ray 01/09/17 00:25 IMPRESSION: Interval placement of endotracheal tube. Otherwise stable findings. D/ / Rina Swan Cha, MD / Rina Swan Cha, MD Interpreting Provider: Rina Swan Cha, MD - Clinical Findings Intake & Output: Intake & Output 01/08/17 01/08/17 01/09/17 15:59 23:59 07:59 Intake Total 1100 / 1100 1372.4 / 1372.4 110 / 110 Output Total 450 / 450 950 / 950 1400 / 1400 Balance 650 / 650 422.4 / 422.4 -1290 / -1290 Consult Discharge Plan - Plan Referrals: Mikie Etienne MD [Partnered Physician] - 01/29/17 11:15 am <Chon Sandoval - Last Filed: 01/09/17 16:14> Date of Encounter: 01/09/17 All Systems: A 10-system review of systems was performed and is negative for pertinent findings except as documented above in the HPI. Physical Examination Vital Signs: Vital Signs, Last 4 Hours Temp Pulse Resp BP Pulse Ox 01/09/17 15:42 14 102/61 93 01/09/17 15:00 68 14 102/60 93 01/09/17 14:00 69 24 109/61 94 01/09/17 13:32 16 88/49 93 01/09/17 13:00 67 14 90/50 93 01/09/17 12:00 97.7 F 68 15 87/49 94 Ventilator Settings Ventilator Settings: Ventilator Settings, Last 8 Hours Ventilator Mode VC+ Ventilator Mode VC+ Ventilator Mode VC+ Ventilator Mode VC+ Ventilator Mode VC+ Ventilator Mode VC+ Ventilator Mode VC+ Ventilator Mode VC+ Ventilator Mode VC+ Ventilator Mode VC+ Ventilator Mode VC+ Ventilator Mode VC+ Ventilator Tidal Volume 450 Setting Ventilator Tidal Volume 450 Setting Ventilator Tidal Volume 450 Setting Ventilator Tidal Volume 450 Setting Ventilator Tidal Volume 450 Setting Ventilator Tidal Volume 450 Setting Ventilator Tidal Volume 450 Setting Ventilator Tidal Volume 450 Setting Ventilator Tidal Volume 450 Setting Ventilator Tidal Volume 450 Setting Ventilator Tidal Volume 450 Setting Ventilator Tidal Volume 450 Setting Ventilator Respiratory Rate 12 Setting Ventilator Respiratory Rate 12 Setting Ventilator Respiratory Rate 12 Setting Ventilator Respiratory Rate 12 Setting Ventilator Respiratory Rate 12 Setting Ventilator Respiratory Rate 12 Setting Ventilator Respiratory Rate 12 Setting Ventilator Respiratory Rate 12 Setting Ventilator Respiratory Rate 12 Setting Ventilator Respiratory Rate 12 Setting Ventilator Respiratory Rate 12 Setting Ventilator Respiratory Rate 12 Setting Actual Respiratory Rate 18 Actual Respiratory Rate 14 Actual Respiratory Rate 24 Actual Respiratory Rate 15 Actual Respiratory Rate 14 Actual Respiratory Rate 15 Actual Respiratory Rate 14 Actual Respiratory Rate 14 Actual Respiratory Rate 17 Actual Respiratory Rate 15 Actual Respiratory Rate 16 Actual Respiratory Rate 18 Positive End Expiratory 5 Pressure Positive End Expiratory 5 Pressure Positive End Expiratory 5 Pressure Positive End Expiratory 5 Pressure Positive End Expiratory 5 Pressure Positive End Expiratory 5 Pressure Positive End Expiratory 5 Pressure Positive End Expiratory 5 Pressure Positive End Expiratory 5 Pressure Positive End Expiratory 5 Pressure Positive End Expiratory 5 Pressure Positive End Expiratory 5 Pressure Peak Inspiratory Airway 13 Pressure Peak Inspiratory Airway 11 Pressure Peak Inspiratory Airway 10 Pressure Peak Inspiratory Airway 11 Pressure Results - Laboratory Findings CBC and BMP: 01/09/17 02:37 01/09/17 01:02 ABG ABG pH 7.45 pH Units (7.32-7.45) 01/09/17 04:28 ABG pCO2 37 mmHg (35-45) 01/09/17 04:28 ABG pO2 85 mmHg (85-104) 01/09/17 04:28 ABG O2 Saturation 97 % (95-98) 01/09/17 04:28 PT/INR, D-dimer PT 14.8 Seconds (9.4-12.1) H 01/09/17 02:37 Abnormal lab findings: Abnormal lab results WBC 13.5 K/mcL (4.3-11.1) H 01/09/17 02:37 RBC 3.06 M/mcL (3.82-4.97) L 01/09/17 02:37 Hgb 9.0 g/dL (11.5-15.4) L 01/09/17 02:37 Hct 27.4 % (35.3-44.9) L 01/09/17 02:37 Neutrophils # 22.1 K/mcL (1.6-8.9) H 01/09/17 01:02 Lymphocytes # 0.5 K/mcL (0.6-4.6) L 01/09/17 01:02 Toxic Granulation Present (Not Present) A 01/09/17 01:02 Dohle Bodies Present (Not Present) A 01/09/17 01:02 Platelet Estimate Increased (Normal) H 01/09/17 01:02 PT 14.8 Seconds (9.4-12.1) H 01/09/17 02:37 ABG Total CO2 26.8 mEq/L (20-26) H 01/09/17 04:28 VBG pH 7.43 pH Units (7.32-7.42) H 01/07/17 14:46 VBG HCO3 30.5 mEq/L (21-27) H 01/07/17 14:46 BUN 35 mg/dL (7-20) H 01/09/17 01:02 BUN/Creatinine Ratio 43 (6-26) H 01/09/17 01:02 Glucose 147 mg/dL (70-99) H 01/09/17 01:02 POC Glucose 131 (58-89) H 01/08/17 23:37 Calculated Osmolality 307 (280-300) H 01/09/17 01:02 Calcium 8.3 mg/dL (8.6-10.8) L 01/09/17 01:02 Phosphorus 4.9 mg/dL (2.3-4.7) H D 01/08/17 05:26 ALT 115 Units/L (0-55) H 01/08/17 09:18 Alkaline Phosphatase 238 Units/L (38-126) H 01/08/17 09:18 Creatine Kinase 234 Units/L (29-168) H 01/09/17 01:02 Troponin I 2.47 ng/mL (0-0.03) H* 01/09/17 07:12 C-Reactive Protein 315 mg/L (Less than 5) H 01/07/17 20:59 B-Natriuretic Peptide 773 pg/mL (0-100) H 01/09/17 02:37 Serum Total Protein 5.9 g/dL (6.0-8.3) L 01/08/17 09:18 Albumin 1.5 g/dL (3.5-5.0) L 01/08/17 09:18 Globulin 4.4 g/dL (2.4-3.5) H 01/08/17 09:18 Albumin/Globulin Ratio 0.3 (1.1-2.2) L 01/08/17 09:18 Prealbumin 4.0 mg/dL (16.0-38.0) L 01/08/17 09:18 Urine Clarity Cloudy (Clear) A 01/07/17 15:55 Urine Protein 30 mg/dL (Neg-Trace) H 01/07/17 15:55 Urine Blood Small (Negative) H 01/07/17 15:55 Urine Bilirubin Small (Negative) H 01/07/17 15:55 Ur Leukocyte Esterase Small (Negative) H 01/07/17 15:55 Urine Microscopic RBC 15-30 per hpf (0-3) H 01/07/17 15:55 Urine Microscopic WBC 15-30 per hpf (0-3) H 01/07/17 15:55 Ur Squamous Epith Cells Many per lpf (None-Few) H 01/07/17 15:55 Hyaline Casts Moderate per lpf (None-Few) H 01/07/17 15:55 Ur Culture Indicated? YES (NO) A 01/07/17 15:55 - Microbiology Findings Microbiology Findings: Microbiology, Last 48 Hours 01/09/17 04:00 Sputum Culture - Preliminary Sputum - Clinical Findings Intake & Output: Intake & Output 01/08/17 01/09/17 01/09/17 23:59 07:59 15:59 Intake Total 1372.4 / 1372.4 110 / 110 178 / 178 Output Total 950 / 950 1550 / 1550 300 / 300 Balance 422.4 / 422.4 -1440 / -1440 -122 / -122 - Attending Attestation I examined this patient and my medical decision-making was reviewed with the KITCHENHAND/PA/Advanced Practice Nurse/Resident Physician. I agree with the documented findings, disposition and treatment plan as described except to the extent set forth below. Patient seen and examined. Labs, radiology, chart personally reviewed. Agree with resident's history and physical, assessment, plan with following comments: TENDERIZER TENDER: Patient sedated and does not follows commands, Pulmonary: Acceptable oxygenation and ventilation. With acute respiratory failure and suspected could be aspiration even though patient has feeding tube. Patient is covered with broad-spectrum antibiotics. No plan for extubation at this time, because she is still symptomatic. Cardiovascular: Patient with severe sepsis and non-ST elevation NV discussed with cardiology team and appreciate recommendations. Multiple fluid boluses given to the patient and discussed with the daughter at the bedside and overall prognosis she understand his poor. GI: Nutrition per dietary and GI prophylaxis per routine Heme: DVT prophylaxis per routine ID: Continue antibiotics and plan to de-escalation Renal; urine out put and renal funtion reviewed Endorcine: blood glucose is monitored Lines: all lines checked and no evidence of infections Skin: skin care to prevent pressure ulcers per nursing routine care I spent 35 min of Critical Care time with this patient. It involved decision making of high complexity to assess, manipulate, and support vital organ system failure and/or to prevent further life threatening deterioration of the patient' s condition. The time involved in the performance of separately reportable procedures was not counted toward critical care time.
--- NOTE | 2017-01-09 08:25 | Cardiology Consult Note ---
Date of Encounter: 01/09/17 Time of Encounter: 08:13 Assessment and Plan (1) NSTEMI (non-ST elevated myocardial infarction) Current Visit: Yes Status: Acute Troponin 0.00, 2.68, 2.47. NSTEMI vs type II [place] in the setting of respiratory distress and PNA. EKG from 0024 08/11/16 and repeat EKG completed this morning reviewed with interventional cardiology. Not concerning for STEMI. She is a poor candidate for [facility] with co-morbidities, debilitation, and multifocal pneumonia requiring intubation. Prognosis is guarded. Recommend palliative care consult and discuss code status. Medical management. heparin gtt for 48 hours. Asa and statin. No bb d/t hypotension with systolic in the 70-80's. Check TTE. Discussion w patient/family: The assessment and plan as outlined above was discussed with the patient and/or family members who expressed understanding and agreement. All questions were answered. Thank you for involving us in the care of your patient. Please call with any questions. History of Present Illness Consult date: 01/09/17 Consult reason: Acute [place] Chief complaint: SOB History of present illness: Ms. Brewer is a 56 year old female with a history of Cristina's disease, dementia, HTN, and HLD. She is bed bound and non-verbal at baseline and has a feeding tube per nursing staff. She presented from home with increasing SOB and was found to have multifocal pneumonia. She is currently sedated and intubated after developing respiratory distress last night. An EKG was completed at [address] that [address] borderline diffuse [address] depression. Cardiology was called this morning for concerning EKG changes. Repeat EKG shows no concerning ST elevation. She was reported to be SOB with no chest pain. Troponin found to be elevated at 2.68. Nursing staff was unable to contact her daughter this morning. Past Med Surg Social Fam HX - Past Medical History Medical history: arthritis, dementia, GERD, hyperlipidemia, hypertension, other (Egeland's disease) Psychiatric history: depression - Social History Smoking Status: Never smoker Smokeless Tobacco Status: No Alcohol use: none Drug use: none - Family History Mother Adopted: No Living Status: Cause of : huntingtons Hx Family Cardiac Disorders: No Hx Family Respiratory Disorders: Yes Hx Family Cancer: No Hx Family GI Disorders: No Hx Family Genitourinary Disorders: No Hx Family Endocrine Disorder: Yes (Diabetes) Hx Family Musculoskeletal Disorders: Yes (huntingtons) Hx Family Neuromuscular Disorders: No Hx Family Neurologic Disorders: No Hx Family HEENT Disorders: No Hx Family Autoimmune Disorders: No Hx Family Reproductive Disorders: No Hx Family Psychosocial Disorders: No Hx Family Medical Disorders: No Medications and Allergies Bupropion HCl [Wellbutrin Xl] 300 mg PO DAILY 01/07/17 [History] Cetirizine HCl [Zyrtec] 10 mg PO DAILY 01/07/17 [History] Escitalopram [Lexapro] 20 mg PO DAILY 01/07/17 [History] Haloperidol [Haldol] 1.5 mg PO BID 01/07/17 [History] Lactose-Reduced Food [Ensure Plus] 1 bottle PO 5XD 01/07/17 [History] Naproxen [Naprosyn] 500 mg PO BID 01/07/17 [History] Omeprazole [PriLOSEC] 20 mg PO DAILY 01/07/17 [History] Simvastatin [Zocor] 40 mg PO HS 01/07/17 [History] Water for Irrigation (sterile) [Water for irrigation (sterile)] 100 ml IR 10XD 01/07/17 [History] traZODone [TraZODone] 50 mg PO HS PRN 01/07/17 [History] Allergies Penicillins Allergy (Verified 08/26/16 18:03) Rash All Systems Review: A 10-system review of systems was performed and is negative for pertinent findings except as documented above in the HPI. Physical Examination Vital Signs, Last 4 Hours Temp Pulse Resp BP Pulse Ox 01/09/17 07:50 97.4 F L 01/09/17 07:25 17 91/56 94 01/09/17 06:00 74 18 86/49 94 01/09/17 05:52 19 96 01/09/17 05:00 75 17 104/83 95 01/09/17 04:45 98.9 F HEENT: Atraumatic, Normocephaly, Mucus Membranes Moist, Other (ET tube intact) Neck: No JVD, Normal carotid pulses Cardiac: Reg Rate and Rhythm, Normal S1 and S2, No Murmur Lungs: Normal Breath Sounds, No Wheeze, Rales, Rhonchi Neuro: Other (sedated) Abdomen: Soft, Non-Tender Skin: No rashes noted on visualized skin Extremities: No Clubbing, No Cyanosis, No Edema, Normal Pulses Results 01/09/17 02:37 01/09/17 01:02 Lab Results 01/08/17 01/09/17 01/09/17 09:18 01:02 01:02 WBC 23.0 H Hgb 10.1 L Hct 30.4 L Plt Count 487 H INR APTT Sodium 143 Potassium 3.6 Chloride 109 Carbon Dioxide 23 BUN 35 H Creatinine 0.82 Glucose 147 H Calcium 8.3 L Magnesium 1.7 Total Bilirubin 0.4 AST 31 ALT 115 H Alkaline Phosphatase 238 H Troponin I B-Natriuretic Peptide 01/09/17 01/09/17 01/09/17 01:02 02:37 02:37 WBC 13.5 H Hgb 9.0 L Hct 27.4 L Plt Count 345 INR 1.4 APTT 20.3 L Sodium Potassium Chloride Carbon Dioxide BUN Creatinine Glucose Calcium Magnesium Total Bilirubin AST ALT Alkaline Phosphatase Troponin I 2.68 H* B-Natriuretic Peptide 01/09/17 01/09/17 02:37 07:12 WBC Hgb Hct Plt Count INR APTT Sodium Potassium Chloride Carbon Dioxide BUN Creatinine Glucose Calcium Magnesium Total Bilirubin AST ALT Alkaline Phosphatase Troponin I 2.47 H* B-Natriuretic Peptide 773 H Chest CTA 01/07/17 14:57 IMPRESSION: No evidence of pulmonary embolism. Multiple bilateral airspace disease with a dense consolidation of the right lower lobe. These changes most likely represent multifocal pneumonia. Follow-up examination is suggested to ensure resolution and exclude underlying malignancy. Mild mediastinal adenopathy. Old compression fracture of T6 with loss of 70% of vertebral body height. D/ / 01/07/2017 16:25:28 Jorge Daniels MD / geovany Interpreting Provider: Jorge Daniels MD Chest X-Ray 01/09/17 00:25 IMPRESSION: Interval placement of endotracheal tube. Otherwise stable findings. D/ / Rina Swan Cha, MD / Rina Swan Cha, MD Interpreting Provider: Rina Swan Cha, MD - Imaging and Cardiology Echo: pending - EKG Interpretation EKG results cardiology: personally reviewed Consult Discharge Plan - Plan Referrals: Mikie Etienne MD [Partnered Physician] - 01/29/17 11:15 am
[2017-01-09] MEDS: Pantoprazole 40 MG VIAL IVP SCH (09:14)
[2017-01-09] MEDS ORDERED: Lacri-Lube 3.5 GM TUBE BOTH EYES PRN (09:15)
[2017-01-09] MEDS: *HR* Heparin 5,000 UNIT/ML VIAL IVP PRN ×3 (10:17→23:32)
[2017-01-09] MEDS: Lacri-Lube 3.5 GM TUBE BOTH EYES SCH ×4 (10:53→23:33)
--- NOTE | 2017-01-09 14:22 | Palliative - Consult Note ---
Date of Encounter: 01/09/17 Time of Encounter: 14:00 - Assessment and Plan (1) Anxiety Current Visit: Yes Status: Acute Assessment and plan: She remains on midolazam drip per ICU protocol. Currently at 3mg/hr. Monitor (2) Counseling regarding advanced directives and goals of care Current Visit: Yes Status: Acute Assessment and plan: Discussed with daughter, Uma. She states that she is power of privacy attorney but does not know where her papers are. Patient has another daughter, who is in ECF and also has Chester's disease, and has a son that resides at home with Uma. Uma states he does not participate in her care. Patient has [facility] home health and daily nursing program director visits, and attends adult day care. Uma denies any other needs at home other than an "air conditioner". Discuss goals of care. Uma desires to continue to care for her mother at home. She may consider temporary placement, but undecided at this point. 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 Discussed code status, and Uma stated she would "consider" this. Discussed also she would need to decide if she wanted pt to be re-intubated if she is extubated and fails. Daughter states she will "think about things", but no decisions as of this time. Patient remains full code. I notified daughter to inform myself or ICU staff if she decides to make any changes in her code status. Palliative will continue to follow clinical course. 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 Brewer is a 56 year old female with a history of Chester's disease who was admitted and being treated for pneumonia. She was sent from adult day care where she attends daily. Her respiratory status decompensated shortly after admission and she was intubated. She is currently on the ventilator and sedated in ICU. Receiving vent support, bronchodilators, antibiotics for infection. Leukocytosis is improving. She appears in no distress with my examination. CC: Cherelle Harrison Past Med Surg Social Fam HX - Past Medical History Medical history: arthritis, dementia, GERD, hyperlipidemia, hypertension, other Psychiatric history: depression - Social History Smoking Status: Never smoker Smokeless Tobacco Status: No Alcohol use: none Drug use: none - Family History Mother Adopted: No Living Status: Cause of : huntingtons Hx Family Cardiac Disorders: No Hx Family Respiratory Disorders: Yes Hx Family Cancer: No Hx Family GI Disorders: No Hx Family Genitourinary Disorders: No Hx Family Endocrine Disorder: Yes (Diabetes) Hx Family Musculoskeletal Disorders: Yes (huntingtons) Hx Family Neuromuscular Disorders: No Hx Family Neurologic Disorders: No Hx Family HEENT Disorders: No Hx Family Autoimmune Disorders: No Hx Family Reproductive Disorders: No Hx Family Psychosocial Disorders: No Hx Family Medical Disorders: No Medications and Allergies Bupropion HCl [Wellbutrin Xl] 300 mg PO DAILY 01/07/17 [History] Cetirizine HCl [Zyrtec] 10 mg PO DAILY 01/07/17 [History] Escitalopram [Lexapro] 20 mg PO DAILY 01/07/17 [History] Haloperidol [Haldol] 1.5 mg PO BID 01/07/17 [History] Lactose-Reduced Food [Ensure Plus] 1 bottle PO 5XD 01/07/17 [History] Naproxen [Naprosyn] 500 mg PO BID 01/07/17 [History] Omeprazole [PriLOSEC] 20 mg PO DAILY 01/07/17 [History] Simvastatin [Zocor] 40 mg PO HS 01/07/17 [History] Water for Irrigation (sterile) [Water for irrigation (sterile)] 100 ml IR 10XD 01/07/17 [History] traZODone [TraZODone] 50 mg PO HS PRN 01/07/17 [History] Allergies Penicillins Allergy (Verified 08/26/16 18:03) Rash ROS unobtainable: due to endotracheal tube Palliative Care-Exam - Constitutional Vitals: Temp Pulse Resp BP Pulse Ox 97.7 F 67 16 88/49 93 01/09/17 12:00 01/09/17 13:00 01/09/17 13:32 01/09/17 13:32 01/09/17 13:32 General appearance: Present: no acute distress - Head Head Exam: Present: normal inspection, normocephalic - Respiratory Additional comments: Breath sounds with rhonchi bilaterally. - Cardiovascular Cardiovascular exam: Present: +S1, +S2 - GI/Abdominal Exam GI/Abdominal exam: Present: diminished bowel sounds, soft additional comments: PEG patent with feedings infusing - Catheter Type: Urethral (P[place]) - Extremities Exam Extremities exam: Present: normal capillary refill, normal inspection - Neurological Exam Additional comments: Sedated on vent - Skin Skin exam: Present: dry, pallor, warm Internal Medicine - CN: Reslt - Labs CBC & Chem 7: 01/09/17 02:37 01/09/17 01:02 Labs: Short CBC 01/09/17 01/09/17 Range/Units 01:02 02:37 WBC 23.0 H 13.5 H (4.3-11.1) K/mcL Hgb 10.1 L 9.0 L (11.5-15.4) g/dL Hct 30.4 L 27.4 L (35.3-44.9) % Plt Count 487 H 345 (140-400) K/mcL Neutrophils # 22.1 H (1.6-8.9) K/mcL BMP 01/09/17 01:02 Sodium 143 Potassium 3.6 Chloride 109 Carbon Dioxide 23 BUN 35 H Creatinine 0.82 Glucose 147 H Calcium 8.3 L Cardiac Enzymes 01/09/17 01/09/17 Range/Units 01:02 07:12 Troponin I 2.68 H* 2.47 H* (0-0.03) ng/mL - ABG Interpretation ABG results: ABG ABG pH 7.45 pH Units (7.32-7.45) 01/09/17 04:28 ABG pCO2 37 mmHg (35-45) 01/09/17 04:28 ABG pO2 85 mmHg (85-104) 01/09/17 04:28 ABG O2 Saturation 97 % (95-98) 01/09/17 04:28 PT/INR, D-dimer PT 14.8 Seconds (9.4-12.1) H 01/09/17 02:37 - Impressions Impressions Chest X-Ray 01/08/17 21:49 IMPRESSION: Right lung pneumonia appears improved while there has been no definite change on the left. D/ / Porter Brenner MD / Porter Brenner MD Interpreting Provider: Porter Brenner MD Chest X-Ray 01/09/17 00:25 IMPRESSION: Interval placement of endotracheal tube. Otherwise stable findings. D/ / Rina Swan Cha, MD / Rina Swan Cha, MD Interpreting Provider: Rina Swan Cha, MD Consult Discharge Plan - Plan Referrals: Mikie Etienne MD [Partnered Physician] - 01/29/17 11:15 am Palliative Quality Palliative Quality: Screen for Code Status: Yes, Screen for Goals of Care: Yes, Screen for Pain: NA, If Pain Regimen Started, Initiate Bowel Regimen: NA, Screen for Nausea/Vomitting: NA
--- NOTE | 2017-01-09 16:52 | Event Note ---
<Neeru Venegas - Last Filed: 01/09/17 16:53> Date of Encounter: 01/09/17 Time of Encounter: 16:34 Central Venous Catheter Placement Date: 01/09/17 Time: 1600 Indication: Hemodynamic monitoring/Intravenous access Resident: Neeru Venegas (Primary), Loy Venegas (Assist) Attending: Chon Sandoval A time-out was completed verifying correct patient, procedure, site, positioning , and special equipment if applicable. The patient was placed in a dependent position appropriate for central line placement based on the vein to be cannulated. The patients right neck was prepped and draped in sterile fashion. 1% Lidocaine was used to anesthetize the surrounding skin area. A triple lumen 7 -[place] catheter was introduced into the the [facility] internal jugular vein using the Seldinger technique and under ultrasound guidance. The catheter was threaded smoothly over the guide wire and appropriate blood return was obtained. Each lumen of the catheter was evacuated of air and flushed with sterile saline. The catheter was then sutured in place to the skin and a sterile dressing applied. Dr. Sandoval was present for the entire procedure. Placement was verified with a portable CXR and found to be adequate. Estimated Blood Loss: 0mL The patient tolerated the procedure well and there were no complications. <Chon Sandoval - Last Filed: 01/09/17 17:08> Date of Encounter: 01/09/17 I examined this patient and my medical decision-making was reviewed with the PROCESS LEAD/PA/Advanced Practice Nurse/Resident Physician. I agree with the documented findings, disposition and treatment plan as described except to the extent set forth below. At personally supervised resident placing central line without immediate complications.
[2017-01-09] MEDS: Levofloxacin 500 MG/100 ML 500 MG/100 ML BAG IVPB SCH (17:15)
[2017-01-09] MEDS: Cefepime HCl 2,000 MG in D5% in Water (Mini-Bag+) 100 ML IVPB SCH (17:16)
[2017-01-09] MEDS: Chlorhexidine Rinse 15 ML MOUTHWASH MM SCH (20:22)
[2017-01-10] MEDS: Lacri-Lube 3.5 GM TUBE BOTH EYES SCH ×3 (03:05→10:46)
[2017-01-10] MEDS: Ipratropium/Albuterol Neb 3 ML IH SCH ×5 (03:48→20:39)
[2017-01-10] MEDS: Cefepime HCl 2,000 MG in D5% in Water (Mini-Bag+) 100 ML IVPB SCH ×2 (04:53→16:58)
[2017-01-10 05:03] LABS: ABG Base Excess 5.5 mEq/L (-2.0 to 3.0); ABG HCO3 29.9 mEQ/L (21-27); ABG Oxygen Saturation 96 % (95-98); ABG PCO2 42 mmHg (35-45); ABG PH 7.46 pH Units (7.32-7.45); ABG PO2 76 mmHg (85-104); ABG TCO2 31.2 mEq/L (20-26)
[2017-01-10 05:04] LABS: Blood Gas FiO2 40 %
[2017-01-10 05:18] LABS: Hematocrit 25.6 % (35.3-44.9); Hemoglobin 8.4 g/dL (11.5-15.4); Mean Corpuscular HGB Conc 32.8 g/dL (31.6-35.5); Mean Corpuscular Volume 91.4 fL (83.0-100.0); Mean Platelet Volume 10.3 fL (9.4-12.4); Platelet Count 291 K/mcL (140-400); Red Cell Distribution Width 13.5 % (11.5-14.5)
[2017-01-10 05:39] LABS: Potassium 3.1 mEq/L (3.5-4.5); Sodium 145 mEq/L (136-145)
[2017-01-10 05:40] LABS: Alanine Aminotransferase 66 Units/L (0-55); Albumin/Globulin Ratio 0.4 (1.1-2.2); Alkaline Phosphatase 185 Units/L (38-126); Aspartate Amino Transferase 34 Units/L (5-34); BUN/Creatinine Ratio 49 (6-26); Bilirubin,Total 0.3 mg/dL (0.2-1.2); Blood Urea Nitrogen 36 mg/dL (7-20); Carbon Dioxide 26 mEq/L (19-29); Chloride 114 mEq/L (98-109); Globulin 3.6 g/dL (2.4-3.5); Glucose 186 mg/dL (70-99); Magnesium 1.6 mg/dL (1.6-2.6); Osmolality,Calculated 313 (280-300); eGFR For African Americans > 60 (> 60); eGFR For Non-African Americans > 60 (> 60)
[2017-01-10 05:41] LABS: Albumin 1.4 g/dL (3.5-5.0)
[2017-01-10] MEDS: *HR* Heparin 5,000 UNIT/ML VIAL IVP PRN ×2 (05:49→12:38)
[2017-01-10 05:55] LABS: Lymphocytes # 0.2 K/mcL (0.6-4.6); Monocytes # 0.7 K/mcL (0.0-1.3); Neutrophils # 10.1 K/mcL (1.6-8.9); Platelet Estimate Normal (Normal); Smudge Cells Present (Not Present)
[2017-01-10] MEDS ORDERED: Potassium Chloride Elixir 20 MEQ/15 ML UDC GTUBE ONE (06:38)
[2017-01-10] MEDS: Chlorhexidine Rinse 15 ML MOUTHWASH MM SCH (07:36)
[2017-01-10] MEDS: Aspirin 325 MG TABLET GTUBE SCH (07:36)
[2017-01-10] MEDS: Pantoprazole 40 MG VIAL IVP SCH (07:36)
--- NOTE | 2017-01-10 07:40 | Pulmonology Progress Note ---
<Neeru Venegas - Last Filed: 01/10/17 08:55> Date of Encounter: 01/10/17 Time of Encounter: 07:38 Assessment and Plan (1) Acute respiratory failure Current Visit: Yes Status: Acute ACT TUTOR: Patient is intubated and sedated, nonverbal at baseline secondary to [place]ov[place]'s disease Pulmonary: Patient presented with SOB, multifocal pneumonia noted on CTA. Patient developed increasing hypoxia and respiratory distress 01/08 and was intubated. She is currently intubated and on the ventilator. Will continue Levaquin and cefepime for treatment of her pneumonia. Patient has been on CPAP mode since 653 and is tolerating this well. Lung sounds are still coarse throughout. Plan to extubate today. Cardiovascular: Giller rate and rhythm, blood pressures are stable 100 to 120s systolic. Echo from 01/09/17 LVEF 30% with hypokinesis of the mid to apical segments of the left ventricle that is suggestive of Takatsubo cardiomyopathy or extensive infarct. Cardiology is following and recommends medical management with heparin drip for 48 hours. GI: Nutrition: Will continue tube feeds via PEG GI Prophylaxis protonix. Liver enzymes trending down Renal: No evidence of JUN, urine output 2300 ml yesterday ID: Patient presented with leukocytosis which is resolved, patient is being treated for multifocal pneumonia which was noted on CTA with cefepime and Levaquin. Heme/Onc: Has had decrease in hemoglobin, 8.4 today, 9 yesterday DVT Prophylaxis Hep gtt Endocrine: Blood sugars 100-150 Lines: all lines checked and no evidence of infections right IJ CVC, Arterial line, PEG tube, alexander, peripheral Skin: skin care to prevent pressure ulcers per nursing routine care. CODE STATUS: FULL CODE Qualifiers: Respiratory failure complication: hypoxia Qualified Code(s): J96.01 - Acute respiratory failure with hypoxia (2) Septic shock Current Visit: Yes Status: Acute (3) Pneumonia Current Visit: Yes Status: Acute Qualifiers: Pneumonia type: aspiration pneumonia Aspiration pneumonia type: unspecified Laterality: bilateral Lung location: lower lobe of lung Qualified Code(s): J69.0 - Pneumonitis due to inhalation of food and vomit (4) Lactic acidosis Current Visit: Yes Status: Acute (5) [place] disease Current Visit: Yes Status: Chronic (6) PEG (percutaneous endoscopic gastrostomy) status Current Visit: Yes Status: Chronic (7) DVT prophylaxis Current Visit: Yes Status: Acute Subjective Principal diagnosis: Respiratory Failure, Pneumonia Interval history: The patient was seen and examined. She remains intubated and sedated. No acute events overnight. Objective PUL Vital signs: Last Vital Signs Temp 98.2 F 01/10/17 04:54 Pulse 70 01/10/17 06:00 Resp 11 01/10/17 07:25 BP 100/65 01/10/17 07:25 Pulse Ox 94 01/10/17 07:25 General appearance: no acute distress, other (intubated and sedated) Eyes: nonicteric ENT: oropharynx moist Neck: supple, no lymphadenopathy, no JVD Effort: normal Auscultation: bilateral: wheezes, rhonchi Cardiovascular: regular rate and rhythm Gastrointestinal: hypoactive bowel sounds, soft, non-tender Integumentary: normal Extremities: no cyanosis, no edema, no clubbing, pink and warm, pulses normal pupils equal and round, unable to assess due to mental status (intubated and sedated) Ventilator Settings Ventilator Settings: Ventilator Settings, Last 8 Hours Ventilator Mode CPAP Ventilator Mode VC+ Ventilator Mode VC+ Ventilator Mode VC+ Ventilator Mode VC+ Ventilator Mode VC+ Ventilator Mode VC+ Ventilator Mode VC+ Ventilator Mode VC+ Ventilator Mode VC+ Ventilator Mode VC+ Ventilator Tidal Volume 450 Setting Ventilator Tidal Volume 450 Setting Ventilator Tidal Volume 450 Setting Ventilator Tidal Volume 450 Setting Ventilator Tidal Volume 450 Setting Ventilator Tidal Volume 450 Setting Ventilator Tidal Volume 450 Setting Ventilator Tidal Volume 450 Setting Ventilator Tidal Volume 450 Setting Ventilator Tidal Volume 450 Setting Ventilator Respiratory Rate 12 Setting Ventilator Respiratory Rate 12 Setting Ventilator Respiratory Rate 12 Setting Ventilator Respiratory Rate 12 Setting Ventilator Respiratory Rate 12 Setting Ventilator Respiratory Rate 12 Setting Ventilator Respiratory Rate 12 Setting Ventilator Respiratory Rate 12 Setting Ventilator Respiratory Rate 12 Setting Ventilator Respiratory Rate 12 Setting Actual Respiratory Rate 11 Actual Respiratory Rate 15 Actual Respiratory Rate 15 Actual Respiratory Rate 16 Positive End Expiratory 5 Pressure Positive End Expiratory 5 Pressure Positive End Expiratory 5 Pressure Positive End Expiratory 5 Pressure Positive End Expiratory 5 Pressure Positive End Expiratory 5 Pressure Positive End Expiratory 5 Pressure Positive End Expiratory 5 Pressure Positive End Expiratory 5 Pressure Positive End Expiratory 5 Pressure Positive End Expiratory 5 Pressure Peak Inspiratory Airway 11 Pressure Peak Inspiratory Airway 15 Pressure Peak Inspiratory Airway 15 Pressure Peak Inspiratory Airway 15 Pressure Results - Laboratory Findings CBC and BMP: 01/10/17 05:10 01/10/17 05:10 ABG ABG pH 7.46 pH Units (7.32-7.45) H 01/10/17 04:50 ABG pCO2 42 mmHg (35-45) 01/10/17 04:50 ABG pO2 76 mmHg (85-104) L 01/10/17 04:50 ABG O2 Saturation 96 % (95-98) 01/10/17 04:50 PT/INR, D-dimer PT 14.8 Seconds (9.4-12.1) H 01/09/17 02:37 Abnormal lab findings: Abnormal lab results RBC 2.80 M/mcL (3.82-4.97) L 01/10/17 05:10 Hgb 8.4 g/dL (11.5-15.4) L 01/10/17 05:10 Hct 25.6 % (35.3-44.9) L 01/10/17 05:10 Neutrophils # 10.1 K/mcL (1.6-8.9) H 01/10/17 05:10 Lymphocytes # 0.2 K/mcL (0.6-4.6) L 01/10/17 05:10 Smudge Cells Present (Not Present) A 01/10/17 05:10 Toxic Granulation Present (Not Present) A 01/09/17 01:02 Dohle Bodies Present (Not Present) A 01/09/17 01:02 PT 14.8 Seconds (9.4-12.1) H 01/09/17 02:37 APTT 48.8 Seconds (26.0-36.0) H 01/10/17 05:10 ABG pH 7.46 pH Units (7.32-7.45) H 01/10/17 04:50 ABG pO2 76 mmHg (85-104) L 01/10/17 04:50 ABG HCO3 29.9 mEQ/L (21-27) H 01/10/17 04:50 ABG Total CO2 31.2 mEq/L (20-26) H 01/10/17 04:50 ABG Base Excess 5.5 mEq/L (-2.0 to 3.0) H 01/10/17 04:50 VBG pH 7.43 pH Units (7.32-7.42) H 01/07/17 14:46 VBG HCO3 30.5 mEq/L (21-27) H 01/07/17 14:46 Potassium 3.1 mEq/L (3.5-4.5) L 01/10/17 05:10 Chloride 114 mEq/L (98-109) H 01/10/17 05:10 BUN 36 mg/dL (7-20) H 01/10/17 05:10 BUN/Creatinine Ratio 49 (6-26) H 01/10/17 05:10 Glucose 186 mg/dL (70-99) H 01/10/17 05:10 POC Glucose 140 (58-89) H 01/10/17 04:35 Calculated Osmolality 313 (280-300) H 01/10/17 05:10 Calcium 8.0 mg/dL (8.6-10.8) L 01/10/17 05:10 Phosphorus 4.9 mg/dL (2.3-4.7) H D 01/08/17 05:26 ALT 66 Units/L (0-55) H 01/10/17 05:10 Alkaline Phosphatase 185 Units/L (38-126) H 01/10/17 05:10 Creatine Kinase 234 Units/L (29-168) H 01/09/17 01:02 Troponin I 2.47 ng/mL (0-0.03) H* 01/09/17 07:12 C-Reactive Protein 315 mg/L (Less than 5) H 01/07/17 20:59 B-Natriuretic Peptide 773 pg/mL (0-100) H 01/09/17 02:37 Serum Total Protein 5.0 g/dL (6.0-8.3) L 01/10/17 05:10 Albumin 1.4 g/dL (3.5-5.0) L 01/10/17 05:10 Globulin 3.6 g/dL (2.4-3.5) H 01/10/17 05:10 Albumin/Globulin Ratio 0.4 (1.1-2.2) L 01/10/17 05:10 Prealbumin 4.0 mg/dL (16.0-38.0) L 01/08/17 09:18 Urine Clarity Cloudy (Clear) A 01/07/17 15:55 Urine Protein 30 mg/dL (Neg-Trace) H 01/07/17 15:55 Urine Blood Small (Negative) H 01/07/17 15:55 Urine Bilirubin Small (Negative) H 01/07/17 15:55 Ur Leukocyte Esterase Small (Negative) H 01/07/17 15:55 Urine Microscopic RBC 15-30 per hpf (0-3) H 01/07/17 15:55 Urine Microscopic WBC 15-30 per hpf (0-3) H 01/07/17 15:55 Ur Squamous Epith Cells Many per lpf (None-Few) H 01/07/17 15:55 Hyaline Casts Moderate per lpf (None-Few) H 01/07/17 15:55 Ur Culture Indicated? YES (NO) A 01/07/17 15:55 - Microbiology Findings Microbiology Findings: Microbiology, Last 48 Hours 01/09/17 04:00 Sputum Culture - Preliminary Sputum - Clinical Findings Intake & Output: Intake & Output 01/09/17 01/09/17 01/10/17 15:59 23:59 07:59 Intake Total 178 / 178 498 / 498 815 / 815 Output Total 300 / 300 450 / 450 450 / 450 Balance -122 / -122 48 / 48 365 / 365 Weight 54.476 kg Consult Discharge Plan - Plan Referrals: Mikie Etienne MD [Primary Care Provider] - 01/29/17 11:15 am <Chon Sandoval - Last Filed: 01/10/17 12:34> Date of Encounter: 01/10/17 Objective PUL Vital signs: Last Vital Signs Temp 97.7 F 01/10/17 07:40 Pulse 74 01/10/17 08:00 Resp 12 01/10/17 08:00 BP 120/60 01/10/17 08:00 Pulse Ox 93 01/10/17 08:00 Ventilator Settings Ventilator Settings: Ventilator Settings, Last 8 Hours Ventilator Mode CPAP Ventilator Mode CPAP Ventilator Mode CPAP Ventilator Mode VC+ Ventilator Mode VC+ Ventilator Mode VC+ Ventilator Mode VC+ Ventilator Mode VC+ Ventilator Mode VC+ Ventilator Mode VC+ Ventilator Mode VC+ Ventilator Mode VC+ Ventilator Tidal Volume 450 Setting Ventilator Tidal Volume 450 Setting Ventilator Tidal Volume 450 Setting Ventilator Tidal Volume 450 Setting Ventilator Tidal Volume 450 Setting Ventilator Tidal Volume 450 Setting Ventilator Tidal Volume 450 Setting Ventilator Tidal Volume 450 Setting Ventilator Tidal Volume 450 Setting Ventilator Respiratory Rate 12 Setting Ventilator Respiratory Rate 12 Setting Ventilator Respiratory Rate 12 Setting Ventilator Respiratory Rate 12 Setting Ventilator Respiratory Rate 12 Setting Ventilator Respiratory Rate 12 Setting Ventilator Respiratory Rate 12 Setting Ventilator Respiratory Rate 12 Setting Ventilator Respiratory Rate 12 Setting Actual Respiratory Rate 12 Actual Respiratory Rate 11 Actual Respiratory Rate 12 Actual Respiratory Rate 15 Actual Respiratory Rate 15 Positive End Expiratory 5 Pressure Positive End Expiratory 5 Pressure Positive End Expiratory 5 Pressure Positive End Expiratory 5 Pressure Positive End Expiratory 5 Pressure Positive End Expiratory 5 Pressure Positive End Expiratory 5 Pressure Positive End Expiratory 5 Pressure Positive End Expiratory 5 Pressure Positive End Expiratory 5 Pressure Positive End Expiratory 5 Pressure Positive End Expiratory 5 Pressure Peak Inspiratory Airway 11 Pressure Peak Inspiratory Airway 15 Pressure Peak Inspiratory Airway 15 Pressure Results - Laboratory Findings CBC and BMP: 01/10/17 05:10 01/10/17 05:10 ABG ABG pH 7.46 pH Units (7.32-7.45) H 01/10/17 04:50 ABG pCO2 42 mmHg (35-45) 01/10/17 04:50 ABG pO2 76 mmHg (85-104) L 01/10/17 04:50 ABG O2 Saturation 96 % (95-98) 01/10/17 04:50 PT/INR, D-dimer PT 14.8 Seconds (9.4-12.1) H 01/09/17 02:37 Abnormal lab findings: Abnormal lab results RBC 2.80 M/mcL (3.82-4.97) L 01/10/17 05:10 Hgb 8.4 g/dL (11.5-15.4) L 01/10/17 05:10 Hct 25.6 % (35.3-44.9) L 01/10/17 05:10 Neutrophils # 10.1 K/mcL (1.6-8.9) H 01/10/17 05:10 Lymphocytes # 0.2 K/mcL (0.6-4.6) L 01/10/17 05:10 Smudge Cells Present (Not Present) A 01/10/17 05:10 Toxic Granulation Present (Not Present) A 01/09/17 01:02 Dohle Bodies Present (Not Present) A 01/09/17 01:02 PT 14.8 Seconds (9.4-12.1) H 01/09/17 02:37 APTT 48.8 Seconds (26.0-36.0) H 01/10/17 05:10 ABG pH 7.46 pH Units (7.32-7.45) H 01/10/17 04:50 ABG pO2 76 mmHg (85-104) L 01/10/17 04:50 ABG HCO3 29.9 mEQ/L (21-27) H 01/10/17 04:50 ABG Total CO2 31.2 mEq/L (20-26) H 01/10/17 04:50 ABG Base Excess 5.5 mEq/L (-2.0 to 3.0) H 01/10/17 04:50 VBG pH 7.43 pH Units (7.32-7.42) H 01/07/17 14:46 VBG HCO3 30.5 mEq/L (21-27) H 01/07/17 14:46 Potassium 3.1 mEq/L (3.5-4.5) L 01/10/17 05:10 Chloride 114 mEq/L (98-109) H 01/10/17 05:10 BUN 36 mg/dL (7-20) H 01/10/17 05:10 BUN/Creatinine Ratio 49 (6-26) H 01/10/17 05:10 Glucose 186 mg/dL (70-99) H 01/10/17 05:10 POC Glucose 140 (58-89) H 01/10/17 04:35 Calculated Osmolality 313 (280-300) H 01/10/17 05:10 Calcium 8.0 mg/dL (8.6-10.8) L 01/10/17 05:10 Phosphorus 4.9 mg/dL (2.3-4.7) H D 01/08/17 05:26 ALT 66 Units/L (0-55) H 01/10/17 05:10 Alkaline Phosphatase 185 Units/L (38-126) H 01/10/17 05:10 Creatine Kinase 234 Units/L (29-168) H 01/09/17 01:02 Troponin I 2.47 ng/mL (0-0.03) H* 01/09/17 07:12 C-Reactive Protein 315 mg/L (Less than 5) H 01/07/17 20:59 B-Natriuretic Peptide 773 pg/mL (0-100) H 01/09/17 02:37 Serum Total Protein 5.0 g/dL (6.0-8.3) L 01/10/17 05:10 Albumin 1.4 g/dL (3.5-5.0) L 01/10/17 05:10 Globulin 3.6 g/dL (2.4-3.5) H 01/10/17 05:10 Albumin/Globulin Ratio 0.4 (1.1-2.2) L 01/10/17 05:10 Prealbumin 4.0 mg/dL (16.0-38.0) L 01/08/17 09:18 Urine Clarity Cloudy (Clear) A 01/07/17 15:55 Urine Protein 30 mg/dL (Neg-Trace) H 01/07/17 15:55 Urine Blood Small (Negative) H 01/07/17 15:55 Urine Bilirubin Small (Negative) H 01/07/17 15:55 Ur Leukocyte Esterase Small (Negative) H 01/07/17 15:55 Urine Microscopic RBC 15-30 per hpf (0-3) H 01/07/17 15:55 Urine Microscopic WBC 15-30 per hpf (0-3) H 01/07/17 15:55 Ur Squamous Epith Cells Many per lpf (None-Few) H 01/07/17 15:55 Hyaline Casts Moderate per lpf (None-Few) H 01/07/17 15:55 Ur Culture Indicated? YES (NO) A 01/07/17 15:55 - Microbiology Findings Microbiology Findings: Microbiology, Last 48 Hours 01/09/17 04:00 Sputum Culture - Preliminary Sputum - Clinical Findings Intake & Output: Intake & Output 01/09/17 01/10/17 01/10/17 23:59 07:59 15:59 Intake Total 498 / 498 865 / 865 Output Total 450 / 450 600 / 600 Balance 48 / 48 265 / 265 Weight 54.476 kg - Attending Attestation I examined this patient and my medical decision-making was reviewed with the TRIMMER OPERATOR THREE KNIFE/PA/Advanced Practice Nurse/Resident Physician. I agree with the documented findings, disposition and treatment plan as described except to the extent set forth below. Patient seen and examined. Labs, radiology, chart personally reviewed. Agree with resident's history and physical, assessment, plan with following comments: ACT TUTOR: Patient does not follows commands, she responds to painful stimuli and to stop sedation completely for possible extubation. Subsequently patient was extubated but due to her underlying neuromuscular disease she is at risk of her breathing could get worse. Pulmonary: Acceptable oxygenation and ventilation. She is spontaneous breathing trial and possible extubation. Cardiovascular: stable GI: Nutrition per dietary and GI prophylaxis per routine. Patient has a PEG tube Heme: DVT prophylaxis per routine ID: Continue antibiotics and plan to de-escalation Renal; urine out put and renal funtion reviewed Endorcine: blood glucose is monitored Lines: all lines checked and no evidence of infections Skin: skin care to prevent pressure ulcers per nursing routine care I suspect overall prognosis is poor
[2017-01-10] MEDS: 0.9 % Sodium Chloride 1,000 ML IVC SCH ×2 (08:55→21:44)
[2017-01-10] MEDS: Heparin 25,000 UNIT/500 ML D5W 25,000 UNIT/500 ML MLS IVC SCH (10:45)
--- NOTE | 2017-01-10 12:36 | Electrocardiograph Report ---
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
--- NOTE | 2017-01-10 13:37 | Palliative Progress Note ---
Date of Encounter: 01/10/17 Time of Encounter: 13:35 - Assessment and plan (1) Anxiety Current Visit: Yes Status: Acute Assessment and plan: Off sedatives at present. Monitor (2) Counseling regarding advanced directives and goals of care Current Visit: Yes Status: Acute Assessment and plan: Spoke with daughter Uma via phone, she is not visiting until later this evening. Again discussed code status and re-intubation. Daughter is still undecided and not ready to make decision re: reintubation. States "she got off vent quicker than I expected and I want to give her every chance". States she is ok if she needs re-intubated temporarily, but she does not want her to have tracheostomy. 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 Will continue to follow clinical course. 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 Leukocytosis improved. Vitals stable. - Time Spent With Patient Total time spent is greater than 50% in coordination of care (as documented) at patient's floor/unit and/or counseling patient: - Subjective Interval history: Patient has been extubated and currently on O2 per NC with sats 91-92%. Opens eyes when name called. Daughter speaking with her on phone and pt is smiling. No family present. - Constitutional Vitals: Abnormal lab results RBC 2.80 M/mcL (3.82-4.97) L 01/10/17 05:10 Hgb 8.4 g/dL (11.5-15.4) L 01/10/17 05:10 Hct 25.6 % (35.3-44.9) L 01/10/17 05:10 Neutrophils # 10.1 K/mcL (1.6-8.9) H 01/10/17 05:10 Lymphocytes # 0.2 K/mcL (0.6-4.6) L 01/10/17 05:10 Smudge Cells Present (Not Present) A 01/10/17 05:10 Toxic Granulation Present (Not Present) A 01/09/17 01:02 Dohle Bodies Present (Not Present) A 01/09/17 01:02 PT 14.8 Seconds (9.4-12.1) H 01/09/17 02:37 ABG pH 7.46 pH Units (7.32-7.45) H 01/10/17 04:50 ABG pO2 76 mmHg (85-104) L 01/10/17 04:50 ABG HCO3 29.9 mEQ/L (21-27) H 01/10/17 04:50 ABG Total CO2 31.2 mEq/L (20-26) H 01/10/17 04:50 ABG Base Excess 5.5 mEq/L (-2.0 to 3.0) H 01/10/17 04:50 VBG pH 7.43 pH Units (7.32-7.42) H 01/07/17 14:46 VBG HCO3 30.5 mEq/L (21-27) H 01/07/17 14:46 Potassium 3.1 mEq/L (3.5-4.5) L 01/10/17 05:10 Chloride 114 mEq/L (98-109) H 01/10/17 05:10 BUN 36 mg/dL (7-20) H 01/10/17 05:10 BUN/Creatinine Ratio 49 (6-26) H 01/10/17 05:10 Glucose 186 mg/dL (70-99) H 01/10/17 05:10 POC Glucose 184 (58-89) H 01/10/17 11:02 Calculated Osmolality 313 (280-300) H 01/10/17 05:10 Calcium 8.0 mg/dL (8.6-10.8) L 01/10/17 05:10 Phosphorus 4.9 mg/dL (2.3-4.7) H D 01/08/17 05:26 ALT 66 Units/L (0-55) H 01/10/17 05:10 Alkaline Phosphatase 185 Units/L (38-126) H 01/10/17 05:10 Creatine Kinase 234 Units/L (29-168) H 01/09/17 01:02 Troponin I 2.47 ng/mL (0-0.03) H* 01/09/17 07:12 C-Reactive Protein 315 mg/L (Less than 5) H 01/07/17 20:59 B-Natriuretic Peptide 773 pg/mL (0-100) H 01/09/17 02:37 Serum Total Protein 5.0 g/dL (6.0-8.3) L 01/10/17 05:10 Albumin 1.4 g/dL (3.5-5.0) L 01/10/17 05:10 Globulin 3.6 g/dL (2.4-3.5) H 01/10/17 05:10 Albumin/Globulin Ratio 0.4 (1.1-2.2) L 01/10/17 05:10 Prealbumin 4.0 mg/dL (16.0-38.0) L 01/08/17 09:18 Urine Clarity Cloudy (Clear) A 01/07/17 15:55 Urine Protein 30 mg/dL (Neg-Trace) H 01/07/17 15:55 Urine Blood Small (Negative) H 01/07/17 15:55 Urine Bilirubin Small (Negative) H 01/07/17 15:55 Ur Leukocyte Esterase Small (Negative) H 01/07/17 15:55 Urine Microscopic RBC 15-30 per hpf (0-3) H 01/07/17 15:55 Urine Microscopic WBC 15-30 per hpf (0-3) H 01/07/17 15:55 Ur Squamous Epith Cells Many per lpf (None-Few) H 01/07/17 15:55 Hyaline Casts Moderate per lpf (None-Few) H 01/07/17 15:55 Ur Culture Indicated? YES (NO) A 01/07/17 15:55 General appearance: Present: no acute distress - Respiratory Respiratory exam: Present: decreased breath sounds, CTAB Additional comments: shallow inspiratory effort, occasional rhonchi noted - Cardiovascular Cardiovascular exam: Present: +S1, +S2 - GI/Abdominal GI/Abdominal exam: Present: normal bowel sounds, soft Additional comments: PEG intact with feedings - Additional comments: [place] with light yellow urine - Extremities Exam Extremities exam: Present: normal capillary refill, normal inspection - Neurological Exam Neurological exam: Present: alert Additional comments: Cannot follow commands or verbalize. Smiles when spoken to - Skin Skin exam: Present: dry, pallor, warm Palliative Quality Palliative Quality: Screen for Code Status: Yes, Screen for Goals of Care: Yes, Screen for Pain: NA, If Pain Regimen Started, Initiate Bowel Regimen: NA, Screen for Nausea/Vomitting: NA - Labs CBC & Chem 7: 01/10/17 05:10 01/10/17 05:10 Labs: Laboratory Results - last 24 hr 01/09/17 01/09/17 01/09/17 16:40 17:55 23:08 WBC RBC Hgb Hct MCV MCH MCHC RDW Plt Count MPV Seg Neutrophils % Band Neutrophils % Lymphocytes % Monocytes % Neutrophils # Lymphocytes # Monocytes # Smudge Cells Platelet Estimate APTT 20.8 L 43.4 H D ABG pH ABG pCO2 ABG pO2 ABG HCO3 ABG Total CO2 ABG O2 Saturation ABG Base Excess Blood Gas Modality Inspired O2 Sodium Potassium Chloride Carbon Dioxide BUN Creatinine Est GFR ( Amer) Est GFR (Non-Af Amer) BUN/Creatinine Ratio Glucose POC Glucose 156 H Calculated Osmolality Calcium Magnesium Total Bilirubin AST ALT Alkaline Phosphatase Serum Total Protein Albumin Globulin Albumin/Globulin Ratio 01/10/17 01/10/17 01/10/17 00:06 04:35 04:50 WBC RBC Hgb Hct MCV MCH MCHC RDW Plt Count MPV Seg Neutrophils % Band Neutrophils % Lymphocytes % Monocytes % Neutrophils # Lymphocytes # Monocytes # Smudge Cells Platelet Estimate APTT ABG pH 7.46 H ABG pCO2 42 ABG pO2 76 L ABG HCO3 29.9 H ABG Total CO2 31.2 H ABG O2 Saturation 96 ABG Base Excess 5.5 H Blood Gas Modality VCT Inspired O2 40 Sodium Potassium Chloride Carbon Dioxide BUN Creatinine Est GFR ( Amer) Est GFR (Non-Af Amer) BUN/Creatinine Ratio Glucose POC Glucose 103 H 140 H Calculated Osmolality Calcium Magnesium Total Bilirubin AST ALT Alkaline Phosphatase Serum Total Protein Albumin Globulin Albumin/Globulin Ratio 01/10/17 01/10/17 01/10/17 05:10 05:10 05:10 WBC 11.0 RBC 2.80 L Hgb 8.4 L Hct 25.6 L MCV 91.4 MCH 30.0 MCHC 32.8 RDW 13.5 Plt Count 291 MPV 10.3 Seg Neutrophils % 90.0 Band Neutrophils % 2.0 Lymphocytes % 2.0 Monocytes % 6.0 Neutrophils # 10.1 H Lymphocytes # 0.2 L Monocytes # 0.7 Smudge Cells Present A Platelet Estimate Normal APTT 48.8 H ABG pH ABG pCO2 ABG pO2 ABG HCO3 ABG Total CO2 ABG O2 Saturation ABG Base Excess Blood Gas Modality Inspired O2 Sodium 145 Potassium 3.1 L Chloride 114 H Carbon Dioxide 26 BUN 36 H Creatinine 0.73 Est GFR ( Amer) > 60 Est GFR (Non-Af Amer) > 60 BUN/Creatinine Ratio 49 H Glucose 186 H POC Glucose Calculated Osmolality 313 H Calcium 8.0 L Magnesium 1.6 Total Bilirubin 0.3 AST 34 ALT 66 H Alkaline Phosphatase 185 H Serum Total Protein 5.0 L Albumin 1.4 L Globulin 3.6 H Albumin/Globulin Ratio 0.4 L 01/10/17 01/10/17 11:02 12:00 WBC RBC Hgb Hct MCV MCH MCHC RDW Plt Count MPV Seg Neutrophils % Band Neutrophils % Lymphocytes % Monocytes % Neutrophils # Lymphocytes # Monocytes # Smudge Cells Platelet Estimate APTT 31.0 ABG pH ABG pCO2 ABG pO2 ABG HCO3 ABG Total CO2 ABG O2 Saturation ABG Base Excess Blood Gas Modality Inspired O2 Sodium Potassium Chloride Carbon Dioxide BUN Creatinine Est GFR ( Amer) Est GFR (Non-Af Amer) BUN/Creatinine Ratio Glucose POC Glucose 184 H Calculated Osmolality Calcium Magnesium Total Bilirubin AST ALT Alkaline Phosphatase Serum Total Protein Albumin Globulin Albumin/Globulin Ratio - Impressions Impressions Chest X-Ray 01/09/17 16:33 IMPRESSION: 1. New right internal jugular central line terminates in the upper right atrium just beyond the superior cavoatrial junction. No associated pneumothorax. 2. Unchanged findings of multifocal pneumonia most prominent in the right perihilar region. 3. Trace bilateral effusions. D/ / Chandler Connor MD / Chandler Connor MD Interpreting Provider: Chandler Connor MD - ABG Interpretation ABG results: ABG ABG pH 7.46 pH Units (7.32-7.45) H 01/10/17 04:50 ABG pCO2 42 mmHg (35-45) 01/10/17 04:50 ABG pO2 76 mmHg (85-104) L 01/10/17 04:50 ABG O2 Saturation 96 % (95-98) 01/10/17 04:50 PT/INR, D-dimer PT 14.8 Seconds (9.4-12.1) H 01/09/17 02:37 Consult Discharge Plan - Plan Referrals: Mikie Etienne MD [Primary Care Provider] - 01/29/17 11:15 am
[2017-01-10] MEDS ORDERED: *HR* Metoprolol 5 MG/5 ML VIAL IVP PRN (16:26)
[2017-01-10] MEDS: Levofloxacin 500 MG/100 ML 500 MG/100 ML BAG IVPB SCH (16:57)
[2017-01-11] MEDS: Heparin 25,000 UNIT/500 ML D5W 25,000 UNIT/500 ML MLS IVC SCH (02:04)
[2017-01-11] MEDS: Ipratropium/Albuterol Neb 3 ML IH SCH ×7 (04:21→23:57)
[2017-01-11 04:43] LABS: Basophils % 0.2 %; Eosinophils % 0.1 %; Hematocrit 31.2 % (35.3-44.9); Immature Granulocytes % 4.2 % (0-4); Lymphocytes # 1.9 K/mcL (0.6-4.6); Lymphocytes % 11.8 %; Mean Corpuscular HGB Conc 32.1 g/dL (31.6-35.5); Mean Corpuscular Hemoglobin 29.2 pg (28.0-33.3); Mean Corpuscular Volume 91.2 fL (83.0-100.0); Mean Platelet Volume 10.4 fL (9.4-12.4); Monocytes # 1.2 K/mcL (0.0-1.3); Monocytes % 7.3 %; Neutrophils # 12.1 K/mcL (1.6-8.9); Platelet Count 455 K/mcL (140-400); Red Blood Count 3.42 M/mcL (3.82-4.97); Red Cell Distribution Width 13.4 % (11.5-14.5); Segmented Neutrophils % 76.4 %
[2017-01-11 04:56] LABS: Alanine Aminotransferase 101 Units/L (0-55); Albumin 1.6 g/dL (3.5-5.0); Albumin/Globulin Ratio 0.4 (1.1-2.2); Alkaline Phosphatase 233 Units/L (38-126); Aspartate Amino Transferase 80 Units/L (5-34); BUN/Creatinine Ratio 36 (6-26); Bilirubin,Total 0.5 mg/dL (0.2-1.2); Blood Urea Nitrogen 24 mg/dL (7-20); Calcium 7.9 mg/dL (8.6-10.8); Carbon Dioxide 28 mEq/L (19-29); Chloride 108 mEq/L (98-109); Globulin 4.1 g/dL (2.4-3.5); Glucose 174 mg/dL (70-99); Osmolality,Calculated 304 (280-300); Potassium 3.3 mEq/L (3.5-4.5); Sodium 143 mEq/L (136-145); Total Protein 5.7 g/dL (6.0-8.3); eGFR For African Americans > 60 (> 60); eGFR For Non-African Americans > 60 (> 60)
[2017-01-11] MEDS ORDERED: Potassium Chloride Elixir 20 MEQ/15 ML UDC GTUBE ONE (06:01)
[2017-01-11] MEDS: Cefepime HCl 2,000 MG in D5% in Water (Mini-Bag+) 100 ML IVPB SCH ×2 (06:34→17:09)
--- NOTE | 2017-01-11 08:24 | Pulmonology Progress Note ---
<Lurdes Deluna Jose M - Last Filed: 01/11/17 12:02> Date of Encounter: 01/11/17 Time of Encounter: 08:15 Assessment and Plan (1) Acute respiratory failure Current Visit: Yes Status: Acute Patient extubated and saturating 91% on 6L NC. Continue treatment for aspiration pneumonia with Levaquin and Cefepime. Plan to transfer patient to [facility] today. Palliative team has had extensive conversations with the patient's daughter, GUILLE, who requests Full Code at this time. 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 She is tolerating extubation well. Continue Levaquin and cefepime for treatment of her pneumonia. Lung sounds are still coarse throughout. Cardiovascular: Intermittent episodes of tachycardia, blood pressures are stable 100 to 120s systolic. Echo from 01/09/17 LVEF 30% with hypokinesis of the mid to apical segments of the left ventricle that is suggestive of Takatsubo cardiomyopathy or extensive infarct. Patient received heparin drip for 48 hours. Heparin ggt discontinued. Cardiology is following. GI/Nutrition/Electrolytes/Fluids: Continue tube feeds via PEG. LFTs elevated, continue to monitor. Hypokalemia-replaced, continue to monitor. Hypomagnesemia -replaced, will continue to monitor Mg. GI Prophylaxis: protonix. Renal: No evidence of JUN, urine output 1L in last 24 hours. Will remove alexander today. ID: Leukocytosis with WBC 15.8 up from 11.0 yesterday. Continue to monitor. Thrombocytosis today with PLT 465, up from 291 yesterday. Multifocal pneumonia noted on CTA with cefepime and Levaquin. Sputum culture 01/09/17 NGTD. Tmax of 100.8 overnight. Heme/Onc: Hb 10.0 today, continue to monitor anemia. Leukocytosis, Thrombocytosis, new from yesterday. DVT Prophylaxis: Heparin SQ Endocrine: Blood sugars 90-190 Lines: all lines checked and no evidence of infections right IJ CVC, PEG tube, alexander, peripheral Skin: skin care to prevent pressure ulcers per nursing routine care. 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 Bilateral lower legs with muscle atrophy. Right arm with chorea and flexion contracture.) pupils equal and round, other (Unable to assess due to patient condition) other (Masked face and chorea present to face. Unable to assess mood or affect. Not tearful. Not appearing agitated.) Results - Laboratory Findings CBC and BMP: 01/11/17 04:29 01/11/17 04:29 ABG ABG pH 7.46 pH Units (7.32-7.45) H 01/10/17 04:50 ABG pCO2 42 mmHg (35-45) 01/10/17 04:50 ABG pO2 76 mmHg (85-104) L 01/10/17 04:50 ABG O2 Saturation 96 % (95-98) 01/10/17 04:50 PT/INR, D-dimer PT 14.8 Seconds (9.4-12.1) H 01/09/17 02:37 Abnormal lab findings: Abnormal lab results WBC 15.8 K/mcL (4.3-11.1) H 01/11/17 04:29 RBC 3.42 M/mcL (3.82-4.97) L 01/11/17 04:29 Hgb 10.0 g/dL (11.5-15.4) L D 01/11/17 04:29 Hct 31.2 % (35.3-44.9) L 01/11/17 04:29 Plt Count 455 K/mcL (140-400) H D 01/11/17 04:29 Immature Gran % 4.2 % (0-4) H 01/11/17 04:29 Neutrophils # 12.1 K/mcL (1.6-8.9) H 01/11/17 04:29 Smudge Cells Present (Not Present) A 01/10/17 05:10 Toxic Granulation Present (Not Present) A 01/09/17 01:02 Dohle Bodies Present (Not Present) A 01/09/17 01:02 PT 14.8 Seconds (9.4-12.1) H 01/09/17 02:37 APTT 69.5 Seconds (26.0-36.0) H D 01/10/17 18:20 ABG pH 7.46 pH Units (7.32-7.45) H 01/10/17 04:50 ABG pO2 76 mmHg (85-104) L 01/10/17 04:50 ABG HCO3 29.9 mEQ/L (21-27) H 01/10/17 04:50 ABG Total CO2 31.2 mEq/L (20-26) H 01/10/17 04:50 ABG Base Excess 5.5 mEq/L (-2.0 to 3.0) H 01/10/17 04:50 VBG pH 7.43 pH Units (7.32-7.42) H 01/07/17 14:46 VBG HCO3 30.5 mEq/L (21-27) H 01/07/17 14:46 Potassium 3.3 mEq/L (3.5-4.5) L 01/11/17 04:29 BUN 24 mg/dL (7-20) H D 01/11/17 04:29 BUN/Creatinine Ratio 36 (6-26) H 01/11/17 04:29 Glucose 174 mg/dL (70-99) H 01/11/17 04:29 POC Glucose 164 (58-89) H 01/11/17 04:51 Calculated Osmolality 304 (280-300) H 01/11/17 04:29 Calcium 7.9 mg/dL (8.6-10.8) L 01/11/17 04:29 Phosphorus 4.9 mg/dL (2.3-4.7) H D 01/08/17 05:26 AST 80 Units/L (5-34) H 01/11/17 04:29 ALT 101 Units/L (0-55) H 01/11/17 04:29 Alkaline Phosphatase 233 Units/L (38-126) H 01/11/17 04:29 Creatine Kinase 234 Units/L (29-168) H 01/09/17 01:02 Troponin I 2.47 ng/mL (0-0.03) H* 01/09/17 07:12 C-Reactive Protein 315 mg/L (Less than 5) H 01/07/17 20:59 B-Natriuretic Peptide 773 pg/mL (0-100) H 01/09/17 02:37 Serum Total Protein 5.7 g/dL (6.0-8.3) L 01/11/17 04:29 Albumin 1.6 g/dL (3.5-5.0) L 01/11/17 04:29 Globulin 4.1 g/dL (2.4-3.5) H 01/11/17 04:29 Albumin/Globulin Ratio 0.4 (1.1-2.2) L 01/11/17 04:29 Prealbumin 4.0 mg/dL (16.0-38.0) L 01/08/17 09:18 Urine Clarity Cloudy (Clear) A 01/07/17 15:55 Urine Protein 30 mg/dL (Neg-Trace) H 01/07/17 15:55 Urine Blood Small (Negative) H 01/07/17 15:55 Urine Bilirubin Small (Negative) H 01/07/17 15:55 Ur Leukocyte Esterase Small (Negative) H 01/07/17 15:55 Urine Microscopic RBC 15-30 per hpf (0-3) H 01/07/17 15:55 Urine Microscopic WBC 15-30 per hpf (0-3) H 01/07/17 15:55 Ur Squamous Epith Cells Many per lpf (None-Few) H 01/07/17 15:55 Hyaline Casts Moderate per lpf (None-Few) H 01/07/17 15:55 Ur Culture Indicated? YES (NO) A 01/07/17 15:55 - Microbiology Findings Microbiology Findings: Microbiology, Last 48 Hours 01/09/17 04:00 Sputum Culture - Final Sputum - Clinical Findings Intake & Output: Intake & Output 01/10/17 01/11/17 01/11/17 23:59 07:59 15:59 Intake Total 1919 / 1919 432 / 432 Output Total 1050 / 1050 850 / 850 Balance 869 / 869 -418 / -418 Weight 55.111 kg Consult Discharge Plan - Plan Referrals: Mikie Etienne MD [Primary Care Provider] - 01/29/17 11:15 am <Chon Sandoval - Last Filed: 01/11/17 12:26> Date of Encounter: 01/11/17 Objective PUL Vital signs: Last Vital Signs Temp 98.1 F 01/11/17 07:15 Pulse 99 01/11/17 07:50 Resp 26 01/11/17 07:28 BP 135/82 01/11/17 06:30 Pulse Ox 94 01/11/17 07:28 Results - Laboratory Findings CBC and BMP: 01/11/17 04:29 01/11/17 04:29 ABG ABG pH 7.46 pH Units (7.32-7.45) H 01/10/17 04:50 ABG pCO2 42 mmHg (35-45) 01/10/17 04:50 ABG pO2 76 mmHg (85-104) L 01/10/17 04:50 ABG O2 Saturation 96 % (95-98) 01/10/17 04:50 PT/INR, D-dimer PT 14.8 Seconds (9.4-12.1) H 01/09/17 02:37 Abnormal lab findings: Abnormal lab results WBC 15.8 K/mcL (4.3-11.1) H 01/11/17 04:29 RBC 3.42 M/mcL (3.82-4.97) L 01/11/17 04:29 Hgb 10.0 g/dL (11.5-15.4) L D 01/11/17 04:29 Hct 31.2 % (35.3-44.9) L 01/11/17 04:29 Plt Count 455 K/mcL (140-400) H D 01/11/17 04:29 Immature Gran % 4.2 % (0-4) H 01/11/17 04:29 Neutrophils # 12.1 K/mcL (1.6-8.9) H 01/11/17 04:29 Smudge Cells Present (Not Present) A 01/10/17 05:10 Toxic Granulation Present (Not Present) A 01/09/17 01:02 Dohle Bodies Present (Not Present) A 01/09/17 01:02 PT 14.8 Seconds (9.4-12.1) H 01/09/17 02:37 APTT 69.5 Seconds (26.0-36.0) H D 01/10/17 18:20 ABG pH 7.46 pH Units (7.32-7.45) H 01/10/17 04:50 ABG pO2 76 mmHg (85-104) L 01/10/17 04:50 ABG HCO3 29.9 mEQ/L (21-27) H 01/10/17 04:50 ABG Total CO2 31.2 mEq/L (20-26) H 01/10/17 04:50 ABG Base Excess 5.5 mEq/L (-2.0 to 3.0) H 01/10/17 04:50 VBG pH 7.43 pH Units (7.32-7.42) H 01/07/17 14:46 VBG HCO3 30.5 mEq/L (21-27) H 01/07/17 14:46 Potassium 3.3 mEq/L (3.5-4.5) L 01/11/17 04:29 BUN 24 mg/dL (7-20) H D 01/11/17 04:29 BUN/Creatinine Ratio 36 (6-26) H 01/11/17 04:29 Glucose 174 mg/dL (70-99) H 01/11/17 04:29 POC Glucose 164 (58-89) H 01/11/17 04:51 Calculated Osmolality 304 (280-300) H 01/11/17 04:29 Calcium 7.9 mg/dL (8.6-10.8) L 01/11/17 04:29 Phosphorus 4.9 mg/dL (2.3-4.7) H D 01/08/17 05:26 AST 80 Units/L (5-34) H 01/11/17 04:29 ALT 101 Units/L (0-55) H 01/11/17 04:29 Alkaline Phosphatase 233 Units/L (38-126) H 01/11/17 04:29 Creatine Kinase 234 Units/L (29-168) H 01/09/17 01:02 Troponin I 2.47 ng/mL (0-0.03) H* 01/09/17 07:12 C-Reactive Protein 315 mg/L (Less than 5) H 01/07/17 20:59 B-Natriuretic Peptide 773 pg/mL (0-100) H 01/09/17 02:37 Serum Total Protein 5.7 g/dL (6.0-8.3) L 01/11/17 04:29 Albumin 1.6 g/dL (3.5-5.0) L 01/11/17 04:29 Globulin 4.1 g/dL (2.4-3.5) H 01/11/17 04:29 Albumin/Globulin Ratio 0.4 (1.1-2.2) L 01/11/17 04:29 Prealbumin 4.0 mg/dL (16.0-38.0) L 01/08/17 09:18 Urine Clarity Cloudy (Clear) A 01/07/17 15:55 Urine Protein 30 mg/dL (Neg-Trace) H 01/07/17 15:55 Urine Blood Small (Negative) H 01/07/17 15:55 Urine Bilirubin Small (Negative) H 01/07/17 15:55 Ur Leukocyte Esterase Small (Negative) H 01/07/17 15:55 Urine Microscopic RBC 15-30 per hpf (0-3) H 01/07/17 15:55 Urine Microscopic WBC 15-30 per hpf (0-3) H 01/07/17 15:55 Ur Squamous Epith Cells Many per lpf (None-Few) H 01/07/17 15:55 Hyaline Casts Moderate per lpf (None-Few) H 01/07/17 15:55 Ur Culture Indicated? YES (NO) A 01/07/17 15:55 - Microbiology Findings Microbiology Findings: Microbiology, Last 48 Hours 01/09/17 04:00 Sputum Culture - Final Sputum - Clinical Findings Intake & Output: Intake & Output 01/10/17 01/11/17 01/11/17 23:59 07:59 15:59 Intake Total 1919 / 1919 532 / 532 Output Total 1050 / 1050 850 / 850 Balance 869 / 869 -318 / -318 Weight 55.111 kg - Attending Attestation I examined this patient and my medical decision-making was reviewed with the PSYCHOLOGICAL AIDE/PA/Advanced Practice Nurse/Resident Physician. I agree with the documented findings, disposition and treatment plan as described except to the extent set forth below. Patient seen and examined. Labs, radiology, chart personally reviewed. Agree with resident's history and physical, assessment, plan with following comments: TUBULAR PRODUCTS FABRICATOR: Patient awake but she does not follows any commands and she has a tremor from that underlying disease. Pulmonary: Acceptable oxygenation and ventilation, however I expect her condition will deteriorate gradually and palliative care as discussed with the daughter, she remains full code Cardiovascular: stable GI: Nutrition per dietary and GI prophylaxis per routine via PEG tube and aspiration precaution Heme: DVT prophylaxis per routine ID: Continue antibiotics and plan to de-escalation Renal; urine out put and renal funtion reviewed Endorcine: blood glucose is monitored Lines: all lines checked and no evidence of infections. Remove central line Skin: skin care to prevent pressure ulcers per nursing routine care Overall prognosis is poor and patient is stable to be transferred out ICU to the floor.
[2017-01-11] MEDS: Pantoprazole 40 MG VIAL IVP SCH (09:36)
[2017-01-11] MEDS: Aspirin 325 MG TABLET GTUBE SCH (09:36)
[2017-01-11] MEDS ORDERED: Magnesium Sulfate 1 GM in D5% in Water 100 ML IVPB ONE (09:45)
[2017-01-11] MEDS: 0.9 % Sodium Chloride 1,000 ML IVC SCH ×2 (11:20→19:31)
[2017-01-11] MEDS: Ondansetron 4 MG/2 ML VIAL IVP PRN ×2 (14:00→23:00)
[2017-01-11] MEDS ORDERED: *HR* Metoprolol 5 MG/5 ML VIAL IVP PRN (14:04)
[2017-01-11] MEDS ORDERED: Naloxone 0.4 MG/ML INJ IVP PRN (14:04)
[2017-01-11] MEDS ORDERED: Ondansetron 4 MG/2 ML VIAL IVP ONE (14:06)
[2017-01-11] MEDS: *HR* Heparin 5,000 UNIT/ML VIAL SQ SCH (17:08)
[2017-01-11] MEDS: Levofloxacin 500 MG/100 ML 500 MG/100 ML BAG IVPB SCH (17:09)
[2017-01-11] MEDS ORDERED: Ondansetron 4 MG/2 ML VIAL IVP SCH (18:00)
[2017-01-11] MEDS ORDERED: *HR* Heparin 5,000 UNIT/ML VIAL SQ SCH (18:00)
[2017-01-11 20:30] LABS: CK-BB (CK isoenzymes) 0 % (0-0); CK-MB (CK isoenzymes) 0 % (0-4); CK-MM (CK-isoenzymes) 100 % (96-100)
[2017-01-11] MEDS ORDERED: *HR* HYDROcodone/Acet 5/325 mg TABLET GTUBE ONE (22:18)
[2017-01-12] MEDS: 0.9 % Sodium Chloride 1,000 ML IVC SCH (01:09)
[2017-01-12] MEDS: Ipratropium/Albuterol Neb 3 ML IH SCH ×5 (03:44→19:51)
[2017-01-12 05:39] LABS: Basophils % 0.2 %; Eosinophils # 0.1 K/mcL (0.0-0.6); Eosinophils % 0.7 %; Hematocrit 28.3 % (35.3-44.9); Hemoglobin 9.1 g/dL (11.5-15.4); Immature Granulocytes % 4.6 % (0-4); Lymphocytes # 1.9 K/mcL (0.6-4.6); Lymphocytes % 11.7 %; Mean Corpuscular HGB Conc 32.2 g/dL (31.6-35.5); Mean Corpuscular Hemoglobin 29.9 pg (28.0-33.3); Mean Corpuscular Volume 93.1 fL (83.0-100.0); Mean Platelet Volume 10.5 fL (9.4-12.4); Monocytes % 5.7 %; Neutrophils # 12.8 K/mcL (1.6-8.9); Nucleated Red Blood Cells 0.1 /100 WBC (0); Platelet Count 404 K/mcL (140-400); Red Blood Count 3.04 M/mcL (3.82-4.97); Red Cell Distribution Width 13.2 % (11.5-14.5); Segmented Neutrophils % 77.1 %
[2017-01-12 05:54] LABS: Alanine Aminotransferase 63 Units/L (0-55); Albumin/Globulin Ratio 0.4 (1.1-2.2); Alkaline Phosphatase 153 Units/L (38-126); Aspartate Amino Transferase 52 Units/L (5-34); BUN/Creatinine Ratio 33 (6-26); Bilirubin,Total 0.5 mg/dL (0.2-1.2); Blood Urea Nitrogen 19 mg/dL (7-20); Calcium 7.7 mg/dL (8.6-10.8); Carbon Dioxide 23 mEq/L (19-29); Chloride 113 mEq/L (98-109); Globulin 3.7 g/dL (2.4-3.5); Glucose 86 mg/dL (70-99); Magnesium 1.8 mg/dL (1.6-2.6); Osmolality,Calculated 298 (280-300); Sodium 143 mEq/L (136-145); Total Protein 5.2 g/dL (6.0-8.3); eGFR For African Americans > 60 (> 60); eGFR For Non-African Americans > 60 (> 60)
[2017-01-12] MEDS: Cefepime HCl 2,000 MG in D5% in Water (Mini-Bag+) 100 ML IVPB SCH (05:59)
[2017-01-12] MEDS: *HR* Heparin 5,000 UNIT/ML VIAL SQ SCH ×2 (06:00→17:14)
[2017-01-12 06:01] LABS: Albumin 1.5 g/dL (3.5-5.0)
[2017-01-12 06:02] LABS: Potassium 3.8 mEq/L (3.5-4.5)
[2017-01-12] MEDS: Pantoprazole 40 MG VIAL IVP SCH (07:25)
--- NOTE | 2017-01-12 08:42 | Pulmonology Progress Note ---
<Lurdes Deluna Alve - Last Filed: 01/12/17 14:28> Date of Encounter: 01/12/17 Time of Encounter: 07:30 Assessment and Plan (1) Acute respiratory failure Current Visit: Yes Status: Acute Patient saturating 92% on 15L of high-flow NC after multiple episodes of vomiting yesterday. New airspace opacification on CXR when compared to previous CXR on 01/09/17. Given these findings, we will cancel transfer of patient to [facility]. Continue treatment for aspiration pneumonia with Levaquin (day# 5). Discontinue Cefepime. Start Flagyl for anaerobic coverage. Palliative team has had extensive conversations with the patient's daughter, GUILLE, who requests Full Code at this time. We will plan to have a conference with daughter today when she arrives to discuss goals of care. 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 There is concern for developing aspiration pneumonia. Patient did have multifocal pneumonia noted on CTA dated 01/07/17. Patient was extubated 12/31/16. Continue Levaquin. Discontinue cefepime and start Flagyl for anaerobic coverage. Lung sounds are still coarse throughout. Cardiovascular: Intermittent episodes of tachycardia, blood pressures are stable 100 to 120s systolic. Echo from 01/09/17 LVEF 30% with hypokinesis of the mid to apical segments of the left ventricle that is suggestive of Takatsubo cardiomyopathy or extensive infarct. Patient received heparin drip for 48 hours. Heparin ggt discontinued. Cardiology is following. GI/Nutrition/Electrolytes/Fluids: Hold tube feeds via PEG due to profuse vomiting. LFTs elevated, but trending down. Patient has not yet had bowel movement during this hospital stay. Start suppository for bowel regimen. Patient mildly hyperchloremic at 113. Stop NS at 125mL/hr. Start D5 1/2 NS at 50mL/hr. GI Prophylaxis: protonix Renal: No evidence of JUN, urine output 1.7L in last 24 hours. ID: Leukocytosis with WBC 16.6 up from 11.0 two days ago. Thrombocytosis today with PLT 404. Multifocal pneumonia noted on CTA treated. Continue Levaquin ( day #5). Discontinue cefepime. Start Flagyl for anaerobic coverage of aspiration pneumonia. Final Sputum culture 01/09/17 NG. Tmax of 99.8 overnight. Heme/Onc: Hb 9.1 today, continue to monitor anemia. Leukocytosis, Thrombocytosis. DVT Prophylaxis: Heparin SQ Endocrine: Blood sugars 90-190. Lines: all lines checked and no evidence of infections PEG tube, alexander, peripheral Skin: skin care to prevent pressure ulcers per nursing routine care. 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 PEG tube feeds were discontinued and patient was given IV Zofran. Patient had nausea after 60mL of free water was placed in PEG tube. Patient is now requiring 15L of high flow O2 to maintin O2 sat of 87-92%. Patient is non-verbal at baseline secondary to Vance's disease. Objective PUL Vital signs: Last Vital Signs Temp 97.6 F 01/12/17 07:30 Pulse 94 01/12/17 07:31 Resp 15 01/12/17 07:41 BP 106/72 01/12/17 04:00 Pulse Ox 92 01/12/17 07:41 General appearance: other (Non-verbal secondary to Vance's disease) Eyes: nonicteric ENT: oropharynx dry Neck: other (hypertonicity of bilateral SCM. Dressing to right neck, clean, dry , intact. 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 Bilateral legs in flexion contracture. ) other (Unable to assess mental status due to fact that patient is non-verbal) other (Unable to assess) Results - Laboratory Findings CBC and BMP: 01/12/17 05:29 01/12/17 05:29 ABG ABG pH 7.46 pH Units (7.32-7.45) H 01/10/17 04:50 ABG pCO2 42 mmHg (35-45) 01/10/17 04:50 ABG pO2 76 mmHg (85-104) L 01/10/17 04:50 ABG O2 Saturation 96 % (95-98) 01/10/17 04:50 PT/INR, D-dimer PT 14.8 Seconds (9.4-12.1) H 01/09/17 02:37 Abnormal lab findings: Abnormal lab results WBC 16.6 K/mcL (4.3-11.1) H 01/12/17 05:29 RBC 3.04 M/mcL (3.82-4.97) L 01/12/17 05:29 Hgb 9.1 g/dL (11.5-15.4) L 01/12/17 05:29 Hct 28.3 % (35.3-44.9) L 01/12/17 05:29 Plt Count 404 K/mcL (140-400) H 01/12/17 05:29 Immature Gran % 4.6 % (0-4) H 01/12/17 05:29 Neutrophils # 12.8 K/mcL (1.6-8.9) H 01/12/17 05:29 Nucleated RBCs/100 WBC 0.1 /100 WBC (0) H 01/12/17 05:29 Smudge Cells Present (Not Present) A 01/10/17 05:10 Toxic Granulation Present (Not Present) A 01/09/17 01:02 Dohle Bodies Present (Not Present) A 01/09/17 01:02 PT 14.8 Seconds (9.4-12.1) H 01/09/17 02:37 APTT 69.5 Seconds (26.0-36.0) H D 01/10/17 18:20 ABG pH 7.46 pH Units (7.32-7.45) H 01/10/17 04:50 ABG pO2 76 mmHg (85-104) L 01/10/17 04:50 ABG HCO3 29.9 mEQ/L (21-27) H 01/10/17 04:50 ABG Total CO2 31.2 mEq/L (20-26) H 01/10/17 04:50 ABG Base Excess 5.5 mEq/L (-2.0 to 3.0) H 01/10/17 04:50 VBG pH 7.43 pH Units (7.32-7.42) H 01/07/17 14:46 VBG HCO3 30.5 mEq/L (21-27) H 01/07/17 14:46 Chloride 113 mEq/L (98-109) H 01/12/17 05:29 BUN/Creatinine Ratio 33 (6-26) H 01/12/17 05:29 POC Glucose 93 (58-89) H 01/11/17 23:36 Calcium 7.7 mg/dL (8.6-10.8) L 01/12/17 05:29 Phosphorus 4.9 mg/dL (2.3-4.7) H D 01/08/17 05:26 AST 52 Units/L (5-34) H 01/12/17 05:29 ALT 63 Units/L (0-55) H 01/12/17 05:29 Alkaline Phosphatase 153 Units/L (38-126) H 01/12/17 05:29 Creatine Kinase 234 Units/L (29-168) H 01/09/17 01:02 Troponin I 2.47 ng/mL (0-0.03) H* 01/09/17 07:12 C-Reactive Protein 315 mg/L (Less than 5) H 01/07/17 20:59 B-Natriuretic Peptide 773 pg/mL (0-100) H 01/09/17 02:37 Serum Total Protein 5.2 g/dL (6.0-8.3) L 01/12/17 05:29 Albumin 1.5 g/dL (3.5-5.0) L 01/12/17 05:29 Globulin 3.7 g/dL (2.4-3.5) H 01/12/17 05:29 Albumin/Globulin Ratio 0.4 (1.1-2.2) L 01/12/17 05:29 Prealbumin 4.0 mg/dL (16.0-38.0) L 01/08/17 09:18 Urine Clarity Cloudy (Clear) A 01/07/17 15:55 Urine Protein 30 mg/dL (Neg-Trace) H 01/07/17 15:55 Urine Blood Small (Negative) H 01/07/17 15:55 Urine Bilirubin Small (Negative) H 01/07/17 15:55 Ur Leukocyte Esterase Small (Negative) H 01/07/17 15:55 Urine Microscopic RBC 15-30 per hpf (0-3) H 01/07/17 15:55 Urine Microscopic WBC 15-30 per hpf (0-3) H 01/07/17 15:55 Ur Squamous Epith Cells Many per lpf (None-Few) H 01/07/17 15:55 Hyaline Casts Moderate per lpf (None-Few) H 01/07/17 15:55 Ur Culture Indicated? YES (NO) A 01/07/17 15:55 - Microbiology Findings Microbiology Findings: Microbiology, Last 48 Hours 01/09/17 04:00 Sputum Culture - Final Sputum - Diagnostic Findings Chest x-ray: image reviewed (New opacification to bilateral lung meeks. Blunting of bilateral costophrenic angles, worsened from previous exam. ) - Clinical Findings Intake & Output: Intake & Output 01/11/17 01/12/17 01/12/17 23:59 07:59 15:59 Intake Total 440 / 440 100 / 100 Output Total 375 / 375 325 / 325 Balance 65 / 65 -225 / -225 Weight 55.6 kg Consult Discharge Plan - Plan Referrals: Mikie Etienne MD [Primary Care Provider] - 01/29/17 11:15 am <Juan Antonio Prado - Last Filed: 01/12/17 14:59> Date of Encounter: 01/12/17 Objective PUL Vital signs: Last Vital Signs Temp 98.0 F 01/12/17 11:20 Pulse 96 01/12/17 11:00 Resp 15 01/12/17 11:48 BP 106/72 01/12/17 04:00 Pulse Ox 92 01/12/17 11:48 Results - Laboratory Findings CBC and BMP: 01/12/17 05:29 01/12/17 05:29 ABG ABG pH 7.46 pH Units (7.32-7.45) H 01/10/17 04:50 ABG pCO2 42 mmHg (35-45) 01/10/17 04:50 ABG pO2 76 mmHg (85-104) L 01/10/17 04:50 ABG O2 Saturation 96 % (95-98) 01/10/17 04:50 PT/INR, D-dimer PT 14.8 Seconds (9.4-12.1) H 01/09/17 02:37 Abnormal lab findings: Abnormal lab results WBC 16.6 K/mcL (4.3-11.1) H 01/12/17 05:29 RBC 3.04 M/mcL (3.82-4.97) L 01/12/17 05:29 Hgb 9.1 g/dL (11.5-15.4) L 01/12/17 05:29 Hct 28.3 % (35.3-44.9) L 01/12/17 05:29 Plt Count 404 K/mcL (140-400) H 01/12/17 05:29 Immature Gran % 4.6 % (0-4) H 01/12/17 05:29 Neutrophils # 12.8 K/mcL (1.6-8.9) H 01/12/17 05:29 Nucleated RBCs/100 WBC 0.1 /100 WBC (0) H 01/12/17 05:29 Smudge Cells Present (Not Present) A 01/10/17 05:10 Toxic Granulation Present (Not Present) A 01/09/17 01:02 Dohle Bodies Present (Not Present) A 01/09/17 01:02 PT 14.8 Seconds (9.4-12.1) H 01/09/17 02:37 APTT 69.5 Seconds (26.0-36.0) H D 01/10/17 18:20 ABG pH 7.46 pH Units (7.32-7.45) H 01/10/17 04:50 ABG pO2 76 mmHg (85-104) L 01/10/17 04:50 ABG HCO3 29.9 mEQ/L (21-27) H 01/10/17 04:50 ABG Total CO2 31.2 mEq/L (20-26) H 01/10/17 04:50 ABG Base Excess 5.5 mEq/L (-2.0 to 3.0) H 01/10/17 04:50 VBG pH 7.43 pH Units (7.32-7.42) H 01/07/17 14:46 VBG HCO3 30.5 mEq/L (21-27) H 01/07/17 14:46 Chloride 113 mEq/L (98-109) H 01/12/17 05:29 BUN/Creatinine Ratio 33 (6-26) H 01/12/17 05:29 POC Glucose 91 (58-89) H 01/12/17 11:21 Calcium 7.7 mg/dL (8.6-10.8) L 01/12/17 05:29 Phosphorus 4.9 mg/dL (2.3-4.7) H D 01/08/17 05:26 AST 52 Units/L (5-34) H 01/12/17 05:29 ALT 63 Units/L (0-55) H 01/12/17 05:29 Alkaline Phosphatase 153 Units/L (38-126) H 01/12/17 05:29 Creatine Kinase 220 U/L (20-180) H 01/09/17 02:37 Troponin I 2.47 ng/mL (0-0.03) H* 01/09/17 07:12 C-Reactive Protein 315 mg/L (Less than 5) H 01/07/17 20:59 B-Natriuretic Peptide 773 pg/mL (0-100) H 01/09/17 02:37 Serum Total Protein 5.2 g/dL (6.0-8.3) L 01/12/17 05:29 Albumin 1.5 g/dL (3.5-5.0) L 01/12/17 05:29 Globulin 3.7 g/dL (2.4-3.5) H 01/12/17 05:29 Albumin/Globulin Ratio 0.4 (1.1-2.2) L 01/12/17 05:29 Prealbumin 4.0 mg/dL (16.0-38.0) L 01/08/17 09:18 Urine Clarity Cloudy (Clear) A 01/07/17 15:55 Urine Protein 30 mg/dL (Neg-Trace) H 01/07/17 15:55 Urine Blood Small (Negative) H 01/07/17 15:55 Urine Bilirubin Small (Negative) H 01/07/17 15:55 Ur Leukocyte Esterase Small (Negative) H 01/07/17 15:55 Urine Microscopic RBC 15-30 per hpf (0-3) H 01/07/17 15:55 Urine Microscopic WBC 15-30 per hpf (0-3) H 01/07/17 15:55 Ur Squamous Epith Cells Many per lpf (None-Few) H 01/07/17 15:55 Hyaline Casts Moderate per lpf (None-Few) H 01/07/17 15:55 Ur Culture Indicated? YES (NO) A 01/07/17 15:55 - Microbiology Findings Microbiology Findings: Microbiology, Last 48 Hours 01/09/17 04:00 Sputum Culture - Final Sputum - Clinical Findings Intake & Output: Intake & Output 01/11/17 01/12/17 01/12/17 23:59 07:59 15:59 Intake Total 440 / 440 100 / 100 1000 / 1000 Output Total 375 / 375 325 / 325 200 / 200 Balance 65 / 65 -225 / -225 800 / 800 Weight 55.6 kg - Attending Attestation I examined this patient and my medical decision-making was reviewed with the CERTIFIED PHYSICIAN'S ASSISTANT/PA/Advanced Practice Nurse/Resident Physician. I agree with the documented findings, disposition and treatment plan as described except to the extent set forth below. All pertinent labs and images reviewed. Patient was discussed in multidisciplinary Rounds. Neuro: History of Vance's disease now with end-stage finding. Patient is minimally interactive. Cardiovascular: Hemodynamically stable. No acute issues. Pulmonary: Status post respiratory failure requiring mechanical ventilation. Now extubated but with evidence of repeat aspiration event. Patient remains full code will manage airway I wishes of family. No indication for intubation at this time. Nephro: No acute issues. GI: Patient is tolerating enteral nutrition poorly. Continue to hold enteral feeding at this point. Plan for further discussion with family members on goals of care. ID: Minimal evidence of pneumonia. Suspected findings were related aspiration without dominant pneumonia. HO: No acute issues. Endo: No acute issues. MSK: No acute issues Disposition: Patient remained in ICU. Plan for further discussion of goals of care when patient's family is available.
[2017-01-12 09:21] LABS: CK Total (Ck Isoenzymes) 220 U/L (20-180)
[2017-01-12] MEDS ORDERED: D5% in Water 1,000 ML IVC PRN (10:21)
[2017-01-12] MEDS ORDERED: Dextrose Gel 15 GM PO PRN ×2 (10:21)
[2017-01-12] MEDS: Aspirin 325 MG TABLET GTUBE SCH (10:46)
--- NOTE | 2017-01-12 11:29 | Palliative Progress Note ---
Date of Encounter: 01/12/17 Time of Encounter: 10:50 - Assessment and plan (1) Constipation Current Visit: Yes Status: Acute Assessment and plan: Patient with no BM X 5 days. Experienced some vomiting of 200 ml yesterday and TF stopped. Currently feedings are off. Abdomen soft, hypoactive BS. Patient takes miralax QOD per PEG at home. Plan - Case discussed with Nutrition. Adjust rate and change feedings. Home regimen is bolus feedings. - Add Dulcolax supp to daily regimen - Monitor I&O (2) Counseling regarding advanced directives and goals of care Current Visit: Yes Status: Acute Assessment and plan: Called daughter Uma #[phone] to give update. Follow-up on previous palliative discussion regarding code status and reintubation. I explained that patients WBC and CXR reveal elevation and changes. Explained that patient is on 15L high flow O2 with sats at 94%. Explained that patient may need mechanical intubation if she has decline in ability to manage own respirations. Uma agrees to short term intubation and states that she does not desire a tracheostomy but is "OK" with short term intubation. Discussed normal PEG feedings and bowel management at home. Uma plans to visit this evening and states that she is available by phone as needed. Patient remains Full Code for now. (3) Pneumonia Current Visit: Yes Status: Acute Qualifiers: Pneumonia type: aspiration pneumonia Aspiration pneumonia type: unspecified Laterality: bilateral Lung location: lower lobe of lung Qualified Code(s): J69.0 - Pneumonitis due to inhalation of food and vomit (4) 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 - Time Spent With Patient Total time spent is greater than 50% in coordination of care (as documented) at patient's floor/unit and/or counseling patient: - Subjective Interval history: Patient with history of Cristina's disease. Currently resides at home in the care of her daughter Uma. Patient admitted with aspiration pneumonia and is currently on 15L high flow with sats at 94%. Patient is alert, eyes open and smiles at name being said. Patient with chorea to all extremities. Events of yesterday noted with patient vomiting 200 ml of tube feeding. Tube feeding stopped at present. Abdomen soft, BS x 4. No BM x 5 days. Peg tube intact. No residual pulled from PEG. - Constitutional Vitals: Abnormal lab results WBC 16.6 K/mcL (4.3-11.1) H 01/12/17 05:29 RBC 3.04 M/mcL (3.82-4.97) L 01/12/17 05:29 Hgb 9.1 g/dL (11.5-15.4) L 01/12/17 05:29 Hct 28.3 % (35.3-44.9) L 01/12/17 05:29 Plt Count 404 K/mcL (140-400) H 01/12/17 05:29 Immature Gran % 4.6 % (0-4) H 01/12/17 05:29 Neutrophils # 12.8 K/mcL (1.6-8.9) H 01/12/17 05:29 Nucleated RBCs/100 WBC 0.1 /100 WBC (0) H 01/12/17 05:29 Smudge Cells Present (Not Present) A 01/10/17 05:10 Toxic Granulation Present (Not Present) A 01/09/17 01:02 Dohle Bodies Present (Not Present) A 01/09/17 01:02 PT 14.8 Seconds (9.4-12.1) H 01/09/17 02:37 APTT 69.5 Seconds (26.0-36.0) H D 01/10/17 18:20 ABG pH 7.46 pH Units (7.32-7.45) H 01/10/17 04:50 ABG pO2 76 mmHg (85-104) L 01/10/17 04:50 ABG HCO3 29.9 mEQ/L (21-27) H 01/10/17 04:50 ABG Total CO2 31.2 mEq/L (20-26) H 01/10/17 04:50 ABG Base Excess 5.5 mEq/L (-2.0 to 3.0) H 01/10/17 04:50 VBG pH 7.43 pH Units (7.32-7.42) H 01/07/17 14:46 VBG HCO3 30.5 mEq/L (21-27) H 01/07/17 14:46 Chloride 113 mEq/L (98-109) H 01/12/17 05:29 BUN/Creatinine Ratio 33 (6-26) H 01/12/17 05:29 POC Glucose 93 (58-89) H 01/11/17 23:36 Calcium 7.7 mg/dL (8.6-10.8) L 01/12/17 05:29 Phosphorus 4.9 mg/dL (2.3-4.7) H D 01/08/17 05:26 AST 52 Units/L (5-34) H 01/12/17 05:29 ALT 63 Units/L (0-55) H 01/12/17 05:29 Alkaline Phosphatase 153 Units/L (38-126) H 01/12/17 05:29 Creatine Kinase 220 U/L (20-180) H 01/09/17 02:37 Troponin I 2.47 ng/mL (0-0.03) H* 01/09/17 07:12 C-Reactive Protein 315 mg/L (Less than 5) H 01/07/17 20:59 B-Natriuretic Peptide 773 pg/mL (0-100) H 01/09/17 02:37 Serum Total Protein 5.2 g/dL (6.0-8.3) L 01/12/17 05:29 Albumin 1.5 g/dL (3.5-5.0) L 01/12/17 05:29 Globulin 3.7 g/dL (2.4-3.5) H 01/12/17 05:29 Albumin/Globulin Ratio 0.4 (1.1-2.2) L 01/12/17 05:29 Prealbumin 4.0 mg/dL (16.0-38.0) L 01/08/17 09:18 Urine Clarity Cloudy (Clear) A 01/07/17 15:55 Urine Protein 30 mg/dL (Neg-Trace) H 01/07/17 15:55 Urine Blood Small (Negative) H 01/07/17 15:55 Urine Bilirubin Small (Negative) H 01/07/17 15:55 Ur Leukocyte Esterase Small (Negative) H 01/07/17 15:55 Urine Microscopic RBC 15-30 per hpf (0-3) H 01/07/17 15:55 Urine Microscopic WBC 15-30 per hpf (0-3) H 01/07/17 15:55 Ur Squamous Epith Cells Many per lpf (None-Few) H 01/07/17 15:55 Hyaline Casts Moderate per lpf (None-Few) H 01/07/17 15:55 Ur Culture Indicated? YES (NO) A 01/07/17 15:55 - Head Head exam: Present: atraumatic, normal inspection, normocephalic - Eye Eye exam: Present: PERRL Pupils: Present: PERRL - ENT ENT exam: Present: mucous membranes moist - Neck Neck exam: Present: full ROM, normal inspection - Respiratory Respiratory exam: Present: decreased breath sounds - Expanded Respiratory Exam Location: decreased breath sounds: Left, Right, Lower - Cardiovascular Cardiovascular exam: Present: RRR, +S1, +S2 - GI/Abdominal GI/Abdominal exam: Present: diminished bowel sounds, soft (PEG intact) - Rectal Rectal exam: Present: deferred - Extremities Exam Extremities exam: Present: pedal edema (left foot 2+ pitting edema, chorea to all extremities) - Neurological Exam Neurological exam: Present: alert (chorea, nonverbal, eyes open) - Psychiatric Psychiatric exam: Present: flat affect - Skin Skin exam: Present: intact Palliative Quality Palliative Quality: Screen for Code Status: Yes, Screen for Goals of Care: Yes, Screen for Pain: NA, If Pain Regimen Started, Initiate Bowel Regimen: NA, Screen for Nausea/Vomitting: NA - Labs CBC & Chem 7: 01/12/17 05:29 01/12/17 05:29 Labs: Laboratory Results - last 24 hr 01/09/17 01/11/17 01/12/17 02:37 23:36 05:29 WBC 16.6 H RBC 3.04 L Hgb 9.1 L Hct 28.3 L MCV 93.1 MCH 29.9 MCHC 32.2 RDW 13.2 Plt Count 404 H MPV 10.5 Immature Gran % 4.6 H Seg Neutrophils % 77.1 Lymphocytes % 11.7 Monocytes % 5.7 Eosinophils % 0.7 Basophils % 0.2 Neutrophils # 12.8 H Lymphocytes # 1.9 Monocytes # 1.0 Eosinophils # 0.1 Basophils # 0.0 Nucleated RBCs/100 WBC 0.1 H Sodium Potassium Chloride Carbon Dioxide BUN Creatinine Est GFR ( Amer) Est GFR (Non-Af Amer) BUN/Creatinine Ratio Glucose POC Glucose 93 H Calculated Osmolality Calcium Magnesium Total Bilirubin AST ALT Alkaline Phosphatase Creatine Kinase 220 H CK-MM (CK-3) 100 CK-MB (CK-2) 0 CK-BB (CK-1) 0 Macro CK Type I 0 Macro CK Type II 0 Serum Total Protein Albumin Globulin Albumin/Globulin Ratio 01/12/17 05:29 WBC RBC Hgb Hct MCV MCH MCHC RDW Plt Count MPV Immature Gran % Seg Neutrophils % Lymphocytes % Monocytes % Eosinophils % Basophils % Neutrophils # Lymphocytes # Monocytes # Eosinophils # Basophils # Nucleated RBCs/100 WBC Sodium 143 Potassium 3.8 Chloride 113 H Carbon Dioxide 23 BUN 19 Creatinine 0.58 Est GFR ( Amer) > 60 Est GFR (Non-Af Amer) > 60 BUN/Creatinine Ratio 33 H Glucose 86 POC Glucose Calculated Osmolality 298 Calcium 7.7 L Magnesium 1.8 Total Bilirubin 0.5 AST 52 H ALT 63 H Alkaline Phosphatase 153 H Creatine Kinase CK-MM (CK-3) CK-MB (CK-2) CK-BB (CK-1) Macro CK Type I Macro CK Type II Serum Total Protein 5.2 L Albumin 1.5 L Globulin 3.7 H Albumin/Globulin Ratio 0.4 L - Impressions Impressions Chest X-Ray 01/12/17 07:14 IMPRESSION: Bilateral pleural effusions, moderate on the right and small on the left, which are new from prior exam. There is associated bibasilar atelectasis and/or consolidation. Bilateral airspace opacities, most prominently in the right mid lung are stable. D/ / 01/12/2017 07:52:24 Emil Hartman MD / bcarter Interpreting Provider: Emil Hartman MD - ABG Interpretation ABG results: ABG ABG pH 7.46 pH Units (7.32-7.45) H 01/10/17 04:50 ABG pCO2 42 mmHg (35-45) 01/10/17 04:50 ABG pO2 76 mmHg (85-104) L 01/10/17 04:50 ABG O2 Saturation 96 % (95-98) 01/10/17 04:50 PT/INR, D-dimer PT 14.8 Seconds (9.4-12.1) H 01/09/17 02:37 Consult Discharge Plan - Plan Referrals: Mikie Etienne MD [Primary Care Provider] - 01/29/17 11:15 am
[2017-01-12] MEDS: Insulin LISPRO 300 UNITS/3 ML VIAL SQ SCH ×2 (11:50→20:52)
[2017-01-12] MEDS: D5% in 0.45% NACL 1,000 ML IVC SCH (11:54)
[2017-01-12] MEDS: Bisacodyl 10 MG RECTAL SUPPOSITORY RC SCH (11:55)
[2017-01-12] MEDS: MetroNIDAZOLE 500 MG/100 ML 500 MG/100 ML BAG IVPB SCH (16:07)
[2017-01-12] MEDS: Levofloxacin 500 MG/100 ML 500 MG/100 ML BAG IVPB SCH (17:14)
[2017-01-13] MEDS: Ipratropium/Albuterol Neb 3 ML IH SCH ×7 (00:04→23:15)
[2017-01-13] MEDS: MetroNIDAZOLE 500 MG/100 ML 500 MG/100 ML BAG IVPB SCH ×4 (00:28→23:40)
[2017-01-13] MEDS: Insulin LISPRO 300 UNITS/3 ML VIAL SQ SCH ×5 (00:28→23:40)
[2017-01-13 04:54] LABS: Basophils % 0.2 %; Eosinophils # 0.2 K/mcL (0.0-0.6); Eosinophils % 0.9 %; Hematocrit 28.3 % (35.3-44.9); Hemoglobin 9.5 g/dL (11.5-15.4); Immature Granulocytes % 2.7 % (0-4); Lymphocytes # 1.5 K/mcL (0.6-4.6); Lymphocytes % 9.2 %; Mean Corpuscular HGB Conc 33.6 g/dL (31.6-35.5); Mean Corpuscular Hemoglobin 30.4 pg (28.0-33.3); Mean Corpuscular Volume 90.4 fL (83.0-100.0); Mean Platelet Volume 10.9 fL (9.4-12.4); Monocytes # 0.7 K/mcL (0.0-1.3); Monocytes % 4.3 %; Neutrophils # 13.8 K/mcL (1.6-8.9); Platelet Count 531 K/mcL (140-400); Red Blood Count 3.13 M/mcL (3.82-4.97); Red Cell Distribution Width 13.3 % (11.5-14.5); Segmented Neutrophils % 82.7 %
[2017-01-13 05:13] LABS: Alanine Aminotransferase 56 Units/L (0-55); Albumin/Globulin Ratio 0.5 (1.1-2.2); Alkaline Phosphatase 149 Units/L (38-126); Aspartate Amino Transferase 55 Units/L (5-34); BUN/Creatinine Ratio 26 (6-26); Bilirubin,Total 0.5 mg/dL (0.2-1.2); Blood Urea Nitrogen 15 mg/dL (7-20); Calcium 7.8 mg/dL (8.6-10.8); Carbon Dioxide 27 mEq/L (19-29); Chloride 110 mEq/L (98-109); Globulin 3.5 g/dL (2.4-3.5); Glucose 110 mg/dL (70-99); Magnesium 1.4 mg/dL (1.6-2.6); Osmolality,Calculated 295 (280-300); Potassium 3.1 mEq/L (3.5-4.5); Sodium 142 mEq/L (136-145); Total Protein 5.1 g/dL (6.0-8.3); eGFR For African Americans > 60 (> 60); eGFR For Non-African Americans > 60 (> 60)
[2017-01-13 05:18] LABS: Albumin 1.6 g/dL (3.5-5.0)
[2017-01-13] MEDS: D5% in 0.45% NACL 1,000 ML IVC SCH ×2 (05:47→23:40)
[2017-01-13] MEDS: *HR* Heparin 5,000 UNIT/ML VIAL SQ SCH ×2 (05:47→17:41)
[2017-01-13] MEDS: Ondansetron 4 MG/2 ML VIAL IVP PRN ×2 (07:38→15:55)
[2017-01-13] MEDS ORDERED: Bisacodyl 10 MG RECTAL SUPPOSITORY RC PRN (07:39)
[2017-01-13] MEDS: Pantoprazole 40 MG VIAL IVP SCH (07:40)
[2017-01-13] MEDS: Aspirin 325 MG TABLET GTUBE SCH (07:40)
[2017-01-13] MEDS: Bisacodyl 10 MG RECTAL SUPPOSITORY RC SCH (07:41)
[2017-01-13] MEDS ORDERED: Magnesium Sulfate 2 GM in D5% in Water 100 ML IVPB ONE (07:47)
--- NOTE | 2017-01-13 07:49 | Pulmonology Progress Note ---
<Lurdes Deluna Alve - Last Filed: 01/13/17 08:46> Date of Encounter: 01/13/17 Time of Encounter: 07:00 Assessment and Plan (1) Acute respiratory failure Current Visit: Yes Status: Acute Patient saturating 97% on 15L of high-flow NC. Lung sounds are improved today, although rhonchi are still present. Continue treatment for aspiration pneumonia with Levaquin (day#6). Discontinue Cefepime. Start Flagyl for anaerobic coverage. Palliative team has had extensive conversations with the patient's daughter, GUILLE, who requests Full Code at this time. We have not yet been able to speak to daughter. We will plan to have a conference with daughter today when she arrives to discuss goals of care. 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 Continue Levaquin (day#6) and Flagyl (day#2) . Lungs with presence of bilateral rhonchi, right greater than left. Patient saturating 97%, up from 88-93% yesterday. Cardiovascular: Systolic blood pressures are stable in 120s. Echo from LVEF 30% with hypokinesis of the mid to apical segments of the left ventricle that is suggestive of Takatsubo cardiomyopathy or extensive infarct. Patient received heparin gtt for 48 hours, which has been discontinued. GI/Nutrition/Electrolytes/Fluids: Patient on trickle tube feeds via PEG with nausea and dry-heaving this morning. Patient improved with zofran. She did have a bowel movement overnight. Plan to dry another suppository, then start Miralax daily. LFTs remain elevated. Continue D5 1/2 NS at 50mL/hr. Hypokalemia-replaced. Hypmagnesemia-replaced. GI Prophylaxis: protonix Renal: No evidence of JUN, urine output 1L in last 24 hours. ID: Leukocytosis with WBC 16, unchanged from yesterday. Thrombocytosis with PLT 531 today, up from 404 yesterday. Aspiration pneumonia: continue Levaquin (day #6) and Flagyl (day#2). Afebrile overnight. Heme/Onc: Hb 9.5 today, continue to monitor anemia. Leukocytosis, Thrombocytosis. DVT Prophylaxis: Heparin SQ Endocrine: Blood sugars 90-100. Low-dose SS correction. Lines: All lines checked and no evidence of infections PEG tube, alexander, peripheral Skin: skin care to prevent pressure ulcers per nursing routine care. Code status: FULL CODE Qualifiers: Respiratory failure complication: hypoxia Qualified Code(s): J96.01 - Acute respiratory failure with hypoxia (2) Septic shock Current Visit: Yes Status: Acute (3) Aspiration pneumonia Current Visit: Yes Status: Acute Qualifiers: Laterality: right Lung location: lower lobe of lung Qualified Code(s): J69.0 - Pneumonitis due to inhalation of food and vomit (4) Lactic acidosis Current Visit: Yes Status: Resolved (5) Thrombocytosis Current Visit: Yes Status: Acute (6) Anemia Current Visit: Yes Status: Acute Qualifiers: Qualified Code(s): D64.9 - Anemia, unspecified (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 (8) 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 Patient saturating 97% on 15 L at this time. Upon suctioning, a large amount of mucus was removed from the airway. Patient was placed on trickle feeds through the PEG yesterday. Patient is dry-heaving this morning. She also tightens up her extremities and and makes motions that she is in pain. Patient reportedly had a moderate sized bowel movement overnight. Objective PUL Vital signs: Last Vital Signs Temp 98.3 F 01/13/17 04:33 Pulse 79 01/13/17 07:27 Resp 20 01/13/17 07:27 BP 124/86 01/13/17 07:27 Pulse Ox 97 01/13/17 07:27 General appearance: appears uncomfortable (Dry-heaving. Patient having episdoes of tightening entire body. ) Eyes: nonicteric ENT: oropharynx dry Neck: other (Hypertonicity to bilateral SCM. Clean dressing to right neck.) Auscultation: bilateral: rhonchi (Rhonchi to bilateral lung bases, greater in RLL than left) Cardiovascular: regular rate and rhythm Gastrointestinal: normoactive bowel sounds, soft, tender (Patient winces upon palpation of adomen. ), non-distended, other (PEG site clean, dry, intact, no surrounding erythema) Integumentary: normal Extremities: no cyanosis, no edema, other Musculoskeletal: other (Bilateral upper extremities with chorea. Bilateral upper and lower extremities in contractures.) other (Unable to assess due to patient being non-verbal) Results - Laboratory Findings CBC and BMP: 01/13/17 04:22 01/13/17 04:22 ABG ABG pH 7.46 pH Units (7.32-7.45) H 01/10/17 04:50 ABG pCO2 42 mmHg (35-45) 01/10/17 04:50 ABG pO2 76 mmHg (85-104) L 01/10/17 04:50 ABG O2 Saturation 96 % (95-98) 01/10/17 04:50 PT/INR, D-dimer PT 14.8 Seconds (9.4-12.1) H 01/09/17 02:37 Abnormal lab findings: Abnormal lab results WBC 16.7 K/mcL (4.3-11.1) H 01/13/17 04:22 RBC 3.13 M/mcL (3.82-4.97) L 01/13/17 04:22 Hgb 9.5 g/dL (11.5-15.4) L 01/13/17 04:22 Hct 28.3 % (35.3-44.9) L 01/13/17 04:22 Plt Count 531 K/mcL (140-400) H 01/13/17 04:22 Neutrophils # 13.8 K/mcL (1.6-8.9) H 01/13/17 04:22 Nucleated RBCs/100 WBC 0.1 /100 WBC (0) H 01/12/17 05:29 Smudge Cells Present (Not Present) A 01/10/17 05:10 Toxic Granulation Present (Not Present) A 01/09/17 01:02 Dohle Bodies Present (Not Present) A 01/09/17 01:02 PT 14.8 Seconds (9.4-12.1) H 01/09/17 02:37 APTT 69.5 Seconds (26.0-36.0) H D 01/10/17 18:20 ABG pH 7.46 pH Units (7.32-7.45) H 01/10/17 04:50 ABG pO2 76 mmHg (85-104) L 01/10/17 04:50 ABG HCO3 29.9 mEQ/L (21-27) H 01/10/17 04:50 ABG Total CO2 31.2 mEq/L (20-26) H 01/10/17 04:50 ABG Base Excess 5.5 mEq/L (-2.0 to 3.0) H 01/10/17 04:50 VBG pH 7.43 pH Units (7.32-7.42) H 01/07/17 14:46 VBG HCO3 30.5 mEq/L (21-27) H 01/07/17 14:46 Potassium 3.1 mEq/L (3.5-4.5) L 01/13/17 04:22 Chloride 110 mEq/L (98-109) H 01/13/17 04:22 Glucose 110 mg/dL (70-99) H 01/13/17 04:22 POC Glucose 92 (58-89) H 01/12/17 23:38 Calcium 7.8 mg/dL (8.6-10.8) L 01/13/17 04:22 Phosphorus 4.9 mg/dL (2.3-4.7) H D 01/08/17 05:26 Magnesium 1.4 mg/dL (1.6-2.6) L 01/13/17 04:22 AST 55 Units/L (5-34) H 01/13/17 04:22 ALT 56 Units/L (0-55) H 01/13/17 04:22 Alkaline Phosphatase 149 Units/L (38-126) H 01/13/17 04:22 Creatine Kinase 220 U/L (20-180) H 01/09/17 02:37 Troponin I 2.47 ng/mL (0-0.03) H* 01/09/17 07:12 C-Reactive Protein 315 mg/L (Less than 5) H 01/07/17 20:59 B-Natriuretic Peptide 773 pg/mL (0-100) H 01/09/17 02:37 Serum Total Protein 5.1 g/dL (6.0-8.3) L 01/13/17 04:22 Albumin 1.6 g/dL (3.5-5.0) L 01/13/17 04:22 Albumin/Globulin Ratio 0.5 (1.1-2.2) L 01/13/17 04:22 Prealbumin 4.0 mg/dL (16.0-38.0) L 01/08/17 09:18 Urine Clarity Cloudy (Clear) A 01/07/17 15:55 Urine Protein 30 mg/dL (Neg-Trace) H 01/07/17 15:55 Urine Blood Small (Negative) H 01/07/17 15:55 Urine Bilirubin Small (Negative) H 01/07/17 15:55 Ur Leukocyte Esterase Small (Negative) H 01/07/17 15:55 Urine Microscopic RBC 15-30 per hpf (0-3) H 01/07/17 15:55 Urine Microscopic WBC 15-30 per hpf (0-3) H 01/07/17 15:55 Ur Squamous Epith Cells Many per lpf (None-Few) H 01/07/17 15:55 Hyaline Casts Moderate per lpf (None-Few) H 01/07/17 15:55 Ur Culture Indicated? YES (NO) A 01/07/17 15:55 - Microbiology Findings Microbiology Findings: Microbiology, Last 48 Hours 01/09/17 04:00 Sputum Culture - Final Sputum - Clinical Findings Intake & Output: Intake & Output 01/12/17 01/12/17 01/13/17 15:59 23:59 07:59 Intake Total 1000 / 1000 200 / 200 1100 / 1100 Output Total 500 / 500 250 / 250 325 / 325 Balance 500 / 500 -50 / -50 775 / 775 Weight 56.699 kg Consult Discharge Plan - Plan Referrals: Mikie Etienne MD [Primary Care Provider] - 01/29/17 11:15 am <Juan Antonio Prado - Last Filed: 01/13/17 14:26> Date of Encounter: 01/13/17 Objective PUL Vital signs: Last Vital Signs Temp 97.9 F 01/13/17 12:35 Pulse 90 01/13/17 14:00 Resp 24 01/13/17 14:00 BP 132/77 01/13/17 14:00 Pulse Ox 93 01/13/17 14:00 Results - Laboratory Findings CBC and BMP: 01/13/17 04:22 01/13/17 04:22 ABG ABG pH 7.46 pH Units (7.32-7.45) H 01/10/17 04:50 ABG pCO2 42 mmHg (35-45) 01/10/17 04:50 ABG pO2 76 mmHg (85-104) L 01/10/17 04:50 ABG O2 Saturation 96 % (95-98) 01/10/17 04:50 PT/INR, D-dimer PT 14.8 Seconds (9.4-12.1) H 01/09/17 02:37 Abnormal lab findings: Abnormal lab results WBC 16.7 K/mcL (4.3-11.1) H 01/13/17 04:22 RBC 3.13 M/mcL (3.82-4.97) L 01/13/17 04:22 Hgb 9.5 g/dL (11.5-15.4) L 01/13/17 04:22 Hct 28.3 % (35.3-44.9) L 01/13/17 04:22 Plt Count 531 K/mcL (140-400) H 01/13/17 04:22 Neutrophils # 13.8 K/mcL (1.6-8.9) H 01/13/17 04:22 Nucleated RBCs/100 WBC 0.1 /100 WBC (0) H 01/12/17 05:29 Smudge Cells Present (Not Present) A 01/10/17 05:10 Toxic Granulation Present (Not Present) A 01/09/17 01:02 Dohle Bodies Present (Not Present) A 01/09/17 01:02 PT 14.8 Seconds (9.4-12.1) H 01/09/17 02:37 APTT 69.5 Seconds (26.0-36.0) H D 01/10/17 18:20 ABG pH 7.46 pH Units (7.32-7.45) H 01/10/17 04:50 ABG pO2 76 mmHg (85-104) L 01/10/17 04:50 ABG HCO3 29.9 mEQ/L (21-27) H 01/10/17 04:50 ABG Total CO2 31.2 mEq/L (20-26) H 01/10/17 04:50 ABG Base Excess 5.5 mEq/L (-2.0 to 3.0) H 01/10/17 04:50 VBG pH 7.43 pH Units (7.32-7.42) H 01/07/17 14:46 VBG HCO3 30.5 mEq/L (21-27) H 01/07/17 14:46 Potassium 3.1 mEq/L (3.5-4.5) L 01/13/17 04:22 Chloride 110 mEq/L (98-109) H 01/13/17 04:22 Glucose 110 mg/dL (70-99) H 01/13/17 04:22 POC Glucose 113 (58-89) H 01/13/17 11:31 Calcium 7.8 mg/dL (8.6-10.8) L 01/13/17 04:22 Phosphorus 4.9 mg/dL (2.3-4.7) H D 01/08/17 05:26 Magnesium 1.4 mg/dL (1.6-2.6) L 01/13/17 04:22 AST 55 Units/L (5-34) H 01/13/17 04:22 ALT 56 Units/L (0-55) H 01/13/17 04:22 Alkaline Phosphatase 149 Units/L (38-126) H 01/13/17 04:22 Creatine Kinase 220 U/L (20-180) H 01/09/17 02:37 Troponin I 2.47 ng/mL (0-0.03) H* 01/09/17 07:12 C-Reactive Protein 315 mg/L (Less than 5) H 01/07/17 20:59 B-Natriuretic Peptide 773 pg/mL (0-100) H 01/09/17 02:37 Serum Total Protein 5.1 g/dL (6.0-8.3) L 01/13/17 04:22 Albumin 1.6 g/dL (3.5-5.0) L 01/13/17 04:22 Albumin/Globulin Ratio 0.5 (1.1-2.2) L 01/13/17 04:22 Prealbumin 4.0 mg/dL (16.0-38.0) L 01/08/17 09:18 Urine Clarity Cloudy (Clear) A 01/07/17 15:55 Urine Protein 30 mg/dL (Neg-Trace) H 01/07/17 15:55 Urine Blood Small (Negative) H 01/07/17 15:55 Urine Bilirubin Small (Negative) H 01/07/17 15:55 Ur Leukocyte Esterase Small (Negative) H 01/07/17 15:55 Urine Microscopic RBC 15-30 per hpf (0-3) H 01/07/17 15:55 Urine Microscopic WBC 15-30 per hpf (0-3) H 01/07/17 15:55 Ur Squamous Epith Cells Many per lpf (None-Few) H 01/07/17 15:55 Hyaline Casts Moderate per lpf (None-Few) H 01/07/17 15:55 Ur Culture Indicated? YES (NO) A 01/07/17 15:55 - Clinical Findings Intake & Output: Intake & Output 01/12/17 01/13/17 01/13/17 23:59 07:59 15:59 Intake Total 200 / 200 1100 / 1100 807 / 807 Output Total 250 / 250 500 / 500 Balance -50 / -50 600 / 600 807 / 807 Weight 56.699 kg - Attending Attestation I examined this patient and my medical decision-making was reviewed with the TIRE REGROOVING MACHINE OPERATOR/PA/Advanced Practice Nurse/Resident Physician. I agree with the documented findings, disposition and treatment plan as described except to the extent set forth below. All pertinent labs and images reviewed. Patient was discussed in multidisciplinary Rounds. Neuro: Advanced stage Carson disease. Communication patient is difficult. No acute changes from previous exam. Cardiovascular: Hemodynamically stable no acute issues. Pulmonary: Status post aspiration event. Still requiring significant supplemental oxygen at 15 L/m. No indicators of progressing respiratory failure at this time. Nephro: No acute issues. GI: Trickle feeds restarted yesterday. No further episodes of emesis. Plan to progress feeds slowly given recent likely aspiration event. ID: Anorexia been tailored to Levaquin and Flagyl. Leukocytosis remains elevated patient is afebrile without any other markers of untreated infection. HO: Leukocytosis possibly related to infection source is uncertain. No other acute issues. Endocrine: No acute issues. MSK: When necessary morphine started today for evidence of pain. Otherwise no acute issues. Disposition: Neck with patient's daughter this afternoon for goals of care discussion. Introduced the option of DNR/DNI. The daughter expressed some apprehension about this decision and wishes to discuss it with other family members. Plan to follow-up later this afternoon or tomorrow. Patient remained in ICU. Critical care time 45 minutes
[2017-01-13] MEDS ORDERED: *HR* Morphine 2 MG/ML SYRINGE IVP SCH (08:00)
[2017-01-13] MEDS: *HR* Morphine 2 MG/ML SYRINGE IVP PRN ×2 (09:23→19:52)
[2017-01-13] MEDS: Levofloxacin 500 MG/100 ML 500 MG/100 ML BAG IVPB SCH (16:36)
[2017-01-14] MEDS: Ipratropium/Albuterol Neb 3 ML IH SCH ×6 (04:00→23:48)
[2017-01-14] MEDS: *HR* Morphine 2 MG/ML SYRINGE IVP PRN ×4 (04:30→20:30)
[2017-01-14] MEDS: *HR* Heparin 5,000 UNIT/ML VIAL SQ SCH ×2 (05:51→17:28)
[2017-01-14] MEDS: Insulin LISPRO 300 UNITS/3 ML VIAL SQ SCH ×4 (05:51→23:56)
[2017-01-14] MEDS: MetroNIDAZOLE 500 MG/100 ML 500 MG/100 ML BAG IVPB SCH ×3 (07:26→23:56)
[2017-01-14] MEDS: Pantoprazole 40 MG VIAL IVP SCH (07:27)
--- NOTE | 2017-01-14 07:35 | Pulmonology Progress Note ---
<Lurdes Deluna Alve - Last Filed: 01/14/17 09:20> Date of Encounter: 01/14/17 Time of Encounter: 06:55 Assessment and Plan (1) Acute respiratory failure Current Visit: Yes Status: Acute Patient saturating 93-97% on 15L of high-flow NC. Lung sounds with rhonchi still present. Continue treatment for aspiration pneumonia with Levaquin (day#7 ) and Flagyl (day#3). 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 Continue Levaquin (day#7) and Flagyl (day#3) . Lungs with presence of bilateral rhonchi, right greater than left. Patient saturating 93-97%, up from 88-93% yesterday. Cardiovascular: Systolic blood pressures are stable in 120s. Echo from 01/09/ 17 LVEF 30% with hypokinesis of the mid to apical segments of the left ventricle that is suggestive of Takatsubo cardiomyopathy or extensive infarct. Patient received heparin gtt for 48 hours, which has been discontinued. GI/Nutrition/Electrolytes/Fluids: Patient on trickle tube feeds via PEG. No reported nausea. LFTs remain elevated. Continue D5 1/2 NS at 50mL/hr. Hypokalemia-replaced. GI Prophylaxis: protonix Renal: No evidence of JUN, urine output 1L in last 24 hours. ID: Leukocytosis with WBC 17, up from yesterday. Thrombocytosis with PLT 663 today, up from yesterday. Aspiration pneumonia: continue Levaquin (day #7) and Flagyl (day#3). Afebrile overnight. Heme/Onc: Hb 10. continue to monitor anemia. Leukocytosis, Thrombocytosis. DVT Prophylaxis: Heparin SQ Endocrine: Blood sugars 90-100. Low-dose SS correction. Lines: All lines checked and no evidence of infections PEG tube, alexander, peripheral Skin: skin care to prevent pressure ulcers per nursing routine care. Code status: FULL CODE Qualifiers: Respiratory failure complication: hypoxia Qualified Code(s): J96.01 - Acute respiratory failure with hypoxia (2) Septic shock Current Visit: Yes Status: Acute (3) Aspiration pneumonia Current Visit: Yes Status: Acute Qualifiers: Laterality: right Lung location: lower lobe of lung Qualified Code(s): J69.0 - Pneumonitis due to inhalation of food and vomit (4) Lactic acidosis Current Visit: Yes Status: Resolved (5) Thrombocytosis Current Visit: Yes Status: Acute (6) Anemia Current Visit: Yes Status: Acute Qualifiers: Qualified Code(s): D64.9 - Anemia, unspecified (7) Check disease Current Visit: Yes Status: Chronic (8) 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 Patient saturating 93-97% on 15 L at this time. Patient coughing up sputum. She remains on trickle feeds through PEG. Objective PUL Vital signs: Last Vital Signs Temp 98.5 F 01/14/17 04:39 Pulse 70 01/14/17 07:20 Resp 14 01/14/17 07:20 BP 92/58 01/14/17 07:20 Pulse Ox 94 01/14/17 07:20 General appearance: no acute distress Eyes: nonicteric ENT: oropharynx dry Neck: other (Hypertonicity to neck musculature. Dressing in place to right neck.) Auscultation: bilateral: rhonchi (Bilateral lung bases. Right lung base greater than left.) Cardiovascular: regular rate and rhythm Gastrointestinal: normoactive bowel sounds, soft, non-distended Integumentary: normal Extremities: no cyanosis, no edema Musculoskeletal: other (Flexion contractures to bilateral legs. Upper extremities and face with chorea. ) other (Unable to determine due to fact that patient is nonverbal) Results - Laboratory Findings CBC and BMP: 01/14/17 08:26 01/14/17 08:26 ABG ABG pH 7.46 pH Units (7.32-7.45) H 01/10/17 04:50 ABG pCO2 42 mmHg (35-45) 01/10/17 04:50 ABG pO2 76 mmHg (85-104) L 01/10/17 04:50 ABG O2 Saturation 96 % (95-98) 01/10/17 04:50 PT/INR, D-dimer PT 14.8 Seconds (9.4-12.1) H 01/09/17 02:37 Abnormal lab findings: Abnormal lab results WBC 16.7 K/mcL (4.3-11.1) H 01/13/17 04:22 RBC 3.13 M/mcL (3.82-4.97) L 01/13/17 04:22 Hgb 9.5 g/dL (11.5-15.4) L 01/13/17 04:22 Hct 28.3 % (35.3-44.9) L 01/13/17 04:22 Plt Count 531 K/mcL (140-400) H 01/13/17 04:22 Neutrophils # 13.8 K/mcL (1.6-8.9) H 01/13/17 04:22 Nucleated RBCs/100 WBC 0.1 /100 WBC (0) H 01/12/17 05:29 Smudge Cells Present (Not Present) A 01/10/17 05:10 Toxic Granulation Present (Not Present) A 01/09/17 01:02 Dohle Bodies Present (Not Present) A 01/09/17 01:02 PT 14.8 Seconds (9.4-12.1) H 01/09/17 02:37 APTT 69.5 Seconds (26.0-36.0) H D 01/10/17 18:20 ABG pH 7.46 pH Units (7.32-7.45) H 01/10/17 04:50 ABG pO2 76 mmHg (85-104) L 01/10/17 04:50 ABG HCO3 29.9 mEQ/L (21-27) H 01/10/17 04:50 ABG Total CO2 31.2 mEq/L (20-26) H 01/10/17 04:50 ABG Base Excess 5.5 mEq/L (-2.0 to 3.0) H 01/10/17 04:50 VBG pH 7.43 pH Units (7.32-7.42) H 01/07/17 14:46 VBG HCO3 30.5 mEq/L (21-27) H 01/07/17 14:46 Potassium 3.1 mEq/L (3.5-4.5) L 01/13/17 04:22 Chloride 110 mEq/L (98-109) H 01/13/17 04:22 Glucose 110 mg/dL (70-99) H 01/13/17 04:22 Calcium 7.8 mg/dL (8.6-10.8) L 01/13/17 04:22 Phosphorus 4.9 mg/dL (2.3-4.7) H D 01/08/17 05:26 Magnesium 1.4 mg/dL (1.6-2.6) L 01/13/17 04:22 AST 55 Units/L (5-34) H 01/13/17 04:22 ALT 56 Units/L (0-55) H 01/13/17 04:22 Alkaline Phosphatase 149 Units/L (38-126) H 01/13/17 04:22 Creatine Kinase 220 U/L (20-180) H 01/09/17 02:37 Troponin I 2.47 ng/mL (0-0.03) H* 01/09/17 07:12 C-Reactive Protein 315 mg/L (Less than 5) H 01/07/17 20:59 B-Natriuretic Peptide 773 pg/mL (0-100) H 01/09/17 02:37 Serum Total Protein 5.1 g/dL (6.0-8.3) L 01/13/17 04:22 Albumin 1.6 g/dL (3.5-5.0) L 01/13/17 04:22 Albumin/Globulin Ratio 0.5 (1.1-2.2) L 01/13/17 04:22 Prealbumin 4.0 mg/dL (16.0-38.0) L 01/08/17 09:18 Urine Clarity Cloudy (Clear) A 01/07/17 15:55 Urine Protein 30 mg/dL (Neg-Trace) H 01/07/17 15:55 Urine Blood Small (Negative) H 01/07/17 15:55 Urine Bilirubin Small (Negative) H 01/07/17 15:55 Ur Leukocyte Esterase Small (Negative) H 01/07/17 15:55 Urine Microscopic RBC 15-30 per hpf (0-3) H 01/07/17 15:55 Urine Microscopic WBC 15-30 per hpf (0-3) H 01/07/17 15:55 Ur Squamous Epith Cells Many per lpf (None-Few) H 01/07/17 15:55 Hyaline Casts Moderate per lpf (None-Few) H 01/07/17 15:55 Ur Culture Indicated? YES (NO) A 01/07/17 15:55 - Clinical Findings Intake & Output: Intake & Output 01/13/17 01/13/17 01/14/17 15:59 23:59 07:59 Intake Total 807 / 807 1307 / 1307 100 / 100 Output Total 470 / 470 150 / 150 Balance 807 / 807 837 / 837 -50 / -50 Weight 57.6 kg Consult Discharge Plan - Plan Referrals: Mikie Etienne MD [Primary Care Provider] - 01/29/17 11:15 am <Juan Antonio Prado - Last Filed: 01/14/17 13:08> Date of Encounter: 01/14/17 Objective PUL Vital signs: Last Vital Signs Temp 96.8 F L 01/14/17 11:51 Pulse 76 01/14/17 12:00 Resp 16 01/14/17 12:00 BP 100/59 01/14/17 12:00 Pulse Ox 89 01/14/17 12:00 Results - Laboratory Findings CBC and BMP: 01/14/17 08:26 01/14/17 08:26 ABG ABG pH 7.46 pH Units (7.32-7.45) H 01/10/17 04:50 ABG pCO2 42 mmHg (35-45) 01/10/17 04:50 ABG pO2 76 mmHg (85-104) L 01/10/17 04:50 ABG O2 Saturation 96 % (95-98) 01/10/17 04:50 PT/INR, D-dimer PT 14.8 Seconds (9.4-12.1) H 01/09/17 02:37 Abnormal lab findings: Abnormal lab results WBC 17.6 K/mcL (4.3-11.1) H 01/14/17 08:26 RBC 3.29 M/mcL (3.82-4.97) L 01/14/17 08:26 Hgb 10.0 g/dL (11.5-15.4) L 01/14/17 08:26 Hct 30.7 % (35.3-44.9) L 01/14/17 08:26 Plt Count 663 K/mcL (140-400) H 01/14/17 08:26 Neutrophils # 14.5 K/mcL (1.6-8.9) H 01/14/17 08:26 Nucleated RBCs/100 WBC 0.1 /100 WBC (0) H 01/12/17 05:29 Smudge Cells Present (Not Present) A 01/10/17 05:10 Toxic Granulation Present (Not Present) A 01/09/17 01:02 Dohle Bodies Present (Not Present) A 01/09/17 01:02 PT 14.8 Seconds (9.4-12.1) H 01/09/17 02:37 APTT 69.5 Seconds (26.0-36.0) H D 01/10/17 18:20 ABG pH 7.46 pH Units (7.32-7.45) H 01/10/17 04:50 ABG pO2 76 mmHg (85-104) L 01/10/17 04:50 ABG HCO3 29.9 mEQ/L (21-27) H 01/10/17 04:50 ABG Total CO2 31.2 mEq/L (20-26) H 01/10/17 04:50 ABG Base Excess 5.5 mEq/L (-2.0 to 3.0) H 01/10/17 04:50 VBG pH 7.43 pH Units (7.32-7.42) H 01/07/17 14:46 VBG HCO3 30.5 mEq/L (21-27) H 01/07/17 14:46 Potassium 3.4 mEq/L (3.5-4.5) L 01/14/17 08:26 Glucose 100 mg/dL (70-99) H 01/14/17 08:26 Calcium 7.8 mg/dL (8.6-10.8) L 01/14/17 08:26 Phosphorus 4.9 mg/dL (2.3-4.7) H D 01/08/17 05:26 Magnesium 1.5 mg/dL (1.6-2.6) L 01/14/17 08:26 AST 59 Units/L (5-34) H 01/14/17 08:26 Alkaline Phosphatase 138 Units/L (38-126) H 01/14/17 08:26 Creatine Kinase 220 U/L (20-180) H 01/09/17 02:37 Troponin I 2.47 ng/mL (0-0.03) H* 01/09/17 07:12 C-Reactive Protein 315 mg/L (Less than 5) H 01/07/17 20:59 B-Natriuretic Peptide 773 pg/mL (0-100) H 01/09/17 02:37 Serum Total Protein 5.2 g/dL (6.0-8.3) L 01/14/17 08:26 Albumin 1.7 g/dL (3.5-5.0) L 01/14/17 08:26 Albumin/Globulin Ratio 0.5 (1.1-2.2) L 01/14/17 08:26 Prealbumin 4.0 mg/dL (16.0-38.0) L 01/08/17 09:18 Urine Clarity Cloudy (Clear) A 01/07/17 15:55 Urine Protein 30 mg/dL (Neg-Trace) H 01/07/17 15:55 Urine Blood Small (Negative) H 01/07/17 15:55 Urine Bilirubin Small (Negative) H 01/07/17 15:55 Ur Leukocyte Esterase Small (Negative) H 01/07/17 15:55 Urine Microscopic RBC 15-30 per hpf (0-3) H 01/07/17 15:55 Urine Microscopic WBC 15-30 per hpf (0-3) H 01/07/17 15:55 Ur Squamous Epith Cells Many per lpf (None-Few) H 01/07/17 15:55 Hyaline Casts Moderate per lpf (None-Few) H 01/07/17 15:55 Ur Culture Indicated? YES (NO) A 01/07/17 15:55 - Clinical Findings Intake & Output: Intake & Output 01/13/17 01/14/17 01/14/17 23:59 07:59 15:59 Intake Total 1307 / 1307 100 / 100 137 / 137 Output Total 470 / 470 250 / 250 Balance 837 / 837 -150 / -150 137 / 137 Weight 57.6 kg - Attending Attestation I examined the patient review the resident's documentation. All pertinent radiology and laboratory data were reviewed. Patient was discussed in multidisciplinary Rounds and I agree with the resident's documentation of the following additions. 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 Cardiovascular: Intermittently tachycardic but otherwise stable Pulmonary: Apparent recurrent aspiration event this morning with fairly rapid onset recurrent hypoxemia and suctioning of the parents tube feeds from oropharynx. Teeth feeds been discontinued. Per discussion with patient's daughter regarding ongoing risk of feeds. Nephro: No acute issues GI: Currently holding nutrition given poor tolerance. Plan add Reglan now for improved gastric emptying to consider this report long-term solution. Plan discussed this with patient's daughter as well. ID: Prior aspiration with or without aspiration pneumonia. No indicators on December infection at this time. HO: No acute events Endo: No acute issues Musculoskeletal: Morphine added yesterday for as needed pain control. Otherwise no acute issues. Disposition: Patient remained in MICU. Critical care time 40 minutes
[2017-01-14 08:48] LABS: Alanine Aminotransferase 51 Units/L (0-55); Albumin/Globulin Ratio 0.5 (1.1-2.2); Alkaline Phosphatase 138 Units/L (38-126); Aspartate Amino Transferase 59 Units/L (5-34); BUN/Creatinine Ratio 22 (6-26); Bilirubin,Total 0.5 mg/dL (0.2-1.2); Blood Urea Nitrogen 14 mg/dL (7-20); Calcium 7.8 mg/dL (8.6-10.8); Carbon Dioxide 27 mEq/L (19-29); Chloride 108 mEq/L (98-109); Globulin 3.5 g/dL (2.4-3.5); Glucose 100 mg/dL (70-99); Osmolality,Calculated 291 (280-300); Potassium 3.4 mEq/L (3.5-4.5); Sodium 140 mEq/L (136-145); Total Protein 5.2 g/dL (6.0-8.3); eGFR For African Americans > 60 (> 60); eGFR For Non-African Americans > 60 (> 60)
[2017-01-14 08:53] LABS: Albumin 1.7 g/dL (3.5-5.0)
[2017-01-14 09:02] LABS: Basophils % 0.2 %; Eosinophils # 0.1 K/mcL (0.0-0.6); Eosinophils % 0.8 %; Hematocrit 30.7 % (35.3-44.9); Immature Granulocytes % 1.7 % (0-4); Lymphocytes # 1.8 K/mcL (0.6-4.6); Lymphocytes % 10.2 %; Mean Corpuscular HGB Conc 32.6 g/dL (31.6-35.5); Mean Corpuscular Hemoglobin 30.4 pg (28.0-33.3); Mean Corpuscular Volume 93.3 fL (83.0-100.0); Mean Platelet Volume 10.7 fL (9.4-12.4); Monocytes # 0.8 K/mcL (0.0-1.3); Monocytes % 4.6 %; Neutrophils # 14.5 K/mcL (1.6-8.9); Platelet Count 663 K/mcL (140-400); Red Blood Count 3.29 M/mcL (3.82-4.97); Red Cell Distribution Width 14.2 % (11.5-14.5); Segmented Neutrophils % 82.5 %
[2017-01-14] MEDS ORDERED: Potassium Chloride Elixir 20 MEQ/15 ML UDC GTUBE ONE (09:12)
[2017-01-14] MEDS: Aspirin 325 MG TABLET GTUBE SCH (09:13)
[2017-01-14 09:27] LABS: Magnesium 1.5 mg/dL (1.6-2.6)
[2017-01-14] MEDS: Ondansetron 4 MG/2 ML VIAL IVP PRN ×2 (10:43→16:43)
[2017-01-14] MEDS: Metoclopramide 10 MG/2 ML VIAL IVP SCH ×2 (10:47→17:28)
--- NOTE | 2017-01-14 10:55 | Event Note ---
<Lurdes Deluna - Last Filed: 01/14/17 10:53> Date of Encounter: 01/14/17 Time of Encounter: 10:53 At 10:53 I spoke to patient's daughter, Uma Brewer, on the telephone. I let Uma know that her mother is aspirating trickle feeds through the PEG tube. Uma stated that she wishes to change Ingris Brewer's code status to DNR/DNI. I indicated to Uma that we will respect her wishes for Ingris Brewer's care. I let Uma know that I will be available to answer any questions that she may have. Uma verbalized understanding. <Juan Antonio Prado - Last Filed: 01/14/17 13:10> Date of Encounter: 01/14/17 I had a similar discussion yesterday with the patient's daughter where she indicated an open yes to DNR/DNI status function discussed with her brother first. In light of the above conversation, patient's CODE STATUS changed to DNR /DNI.
--- NOTE | 2017-01-14 13:15 | Palliative Progress Note ---
Date of Encounter: 01/14/17 Time of Encounter: 11:00 - Assessment and plan (1) Constipation Current Visit: Yes Status: Acute Assessment and plan: Patient has BM using suppository. Experienced recurrence of vomiting yesterday and TF stopped. Currently feedings are off. Abdomen soft, hypoactive BS. Plan - Case discussed with Nutrition. Add reglan for GI motility. Hold TF for now. - Miralax to daily regimen - Monitor I&O Qualifiers: Constipation type: unspecified constipation type Qualified Code(s): K59.00 - Constipation, unspecified (2) Counseling regarding advanced directives and goals of care Current Visit: Yes Status: Acute Assessment and plan: Called daughter Uma #[phone] to give update. Follow-up on previous palliative discussion regarding code status and reintubation. I explained that patients WBC and CXR reveal elevation and changes. Explained that patient is on 15L high flow O2 with sats at 94%. Explained that patient may need mechanical intubation if she has decline in ability to manage own respirations. Explained that mother is unable to tolerate TF without vomiting and aspiration. Explained that effects of [place]'s disease can cause this outcome. Explained that she is now unable to tolerate feedings. Uma agreed to changing Code status to DNRCC-A, DNI. I offered sympathy and verbalized that this is a very difficult decision and that the care team is here for her. Uma is unable to visit at this time and would like to do phone conferences as needed. Dr. Deluna verified change in Code status with Uma. Discussed Hospice care and discussed philosophy and goals of comfort. Uma to consider transition. 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 Currently resides at home in the care of her daughter Uma. Patient admitted with aspiration pneumonia and is currently on 15L high flow with sats at 88% - 94%. Patient is alert, eyes open and smiles at name being said. Patient with chorea to all extremities. Events of yesterday noted with patient vomiting and dry heaving of tube feeding. Tube feeding stopped at present. Abdomen soft, BS x 4. Patient with BMs. Peg tube intact. No residual pulled from PEG. - Constitutional Vitals: Abnormal lab results WBC 17.6 K/mcL (4.3-11.1) H 01/14/17 08:26 RBC 3.29 M/mcL (3.82-4.97) L 01/14/17 08:26 Hgb 10.0 g/dL (11.5-15.4) L 01/14/17 08:26 Hct 30.7 % (35.3-44.9) L 01/14/17 08:26 Plt Count 663 K/mcL (140-400) H 01/14/17 08:26 Neutrophils # 14.5 K/mcL (1.6-8.9) H 01/14/17 08:26 Nucleated RBCs/100 WBC 0.1 /100 WBC (0) H 01/12/17 05:29 Smudge Cells Present (Not Present) A 01/10/17 05:10 Toxic Granulation Present (Not Present) A 01/09/17 01:02 Dohle Bodies Present (Not Present) A 01/09/17 01:02 PT 14.8 Seconds (9.4-12.1) H 01/09/17 02:37 APTT 69.5 Seconds (26.0-36.0) H D 01/10/17 18:20 ABG pH 7.46 pH Units (7.32-7.45) H 01/10/17 04:50 ABG pO2 76 mmHg (85-104) L 01/10/17 04:50 ABG HCO3 29.9 mEQ/L (21-27) H 01/10/17 04:50 ABG Total CO2 31.2 mEq/L (20-26) H 01/10/17 04:50 ABG Base Excess 5.5 mEq/L (-2.0 to 3.0) H 01/10/17 04:50 VBG pH 7.43 pH Units (7.32-7.42) H 01/07/17 14:46 VBG HCO3 30.5 mEq/L (21-27) H 01/07/17 14:46 Potassium 3.4 mEq/L (3.5-4.5) L 01/14/17 08:26 Glucose 100 mg/dL (70-99) H 01/14/17 08:26 Calcium 7.8 mg/dL (8.6-10.8) L 01/14/17 08:26 Phosphorus 4.9 mg/dL (2.3-4.7) H D 01/08/17 05:26 Magnesium 1.5 mg/dL (1.6-2.6) L 01/14/17 08:26 AST 59 Units/L (5-34) H 01/14/17 08:26 Alkaline Phosphatase 138 Units/L (38-126) H 01/14/17 08:26 Creatine Kinase 220 U/L (20-180) H 01/09/17 02:37 Troponin I 2.47 ng/mL (0-0.03) H* 01/09/17 07:12 C-Reactive Protein 315 mg/L (Less than 5) H 01/07/17 20:59 B-Natriuretic Peptide 773 pg/mL (0-100) H 01/09/17 02:37 Serum Total Protein 5.2 g/dL (6.0-8.3) L 01/14/17 08:26 Albumin 1.7 g/dL (3.5-5.0) L 01/14/17 08:26 Albumin/Globulin Ratio 0.5 (1.1-2.2) L 01/14/17 08:26 Prealbumin 4.0 mg/dL (16.0-38.0) L 01/08/17 09:18 Urine Clarity Cloudy (Clear) A 01/07/17 15:55 Urine Protein 30 mg/dL (Neg-Trace) H 01/07/17 15:55 Urine Blood Small (Negative) H 01/07/17 15:55 Urine Bilirubin Small (Negative) H 01/07/17 15:55 Ur Leukocyte Esterase Small (Negative) H 01/07/17 15:55 Urine Microscopic RBC 15-30 per hpf (0-3) H 01/07/17 15:55 Urine Microscopic WBC 15-30 per hpf (0-3) H 01/07/17 15:55 Ur Squamous Epith Cells Many per lpf (None-Few) H 01/07/17 15:55 Hyaline Casts Moderate per lpf (None-Few) H 01/07/17 15:55 Ur Culture Indicated? YES (NO) A 01/07/17 15:55 - Head Head exam: Present: atraumatic, normal inspection, normocephalic - Eye Eye exam: Present: PERRL - ENT ENT exam: Present: normal exam - Neck Neck exam: Present: full ROM - Respiratory Respiratory exam: Present: decreased breath sounds - Expanded Respiratory Exam Location: decreased breath sounds: Left, Right, Lower - Cardiovascular Cardiovascular exam: Present: RRR, +S1, +S2, tachycardia - GI/Abdominal GI/Abdominal exam: Present: normal bowel sounds, soft - Extremities Exam Extremities exam: Present: tenderness (chorea to all extremities) - Neurological Exam Neurological exam: Present: alert (non verbal) - Psychiatric Psychiatric exam: Present: normal affect Palliative Quality Palliative Quality: Screen for Code Status: Yes, Screen for Goals of Care: Yes, Screen for Pain: NA, If Pain Regimen Started, Initiate Bowel Regimen: NA, Screen for Nausea/Vomitting: NA Code Status: 01/14/17 10:59 CODE [Resuscitation Status: Active] [RES] Routine Comment: Verified with daughter Uma Brewer 10:53 01/14 Resuscitation Status: [id number] - Labs CBC & Chem 7: 01/14/17 08:26 01/14/17 08:26 Labs: Laboratory Results - last 24 hr 01/13/17 01/13/17 01/14/17 17:05 23:18 08:26 WBC 17.6 H RBC 3.29 L Hgb 10.0 L Hct 30.7 L MCV 93.3 MCH 30.4 MCHC 32.6 RDW 14.2 Plt Count 663 H MPV 10.7 Immature Gran % 1.7 Seg Neutrophils % 82.5 Lymphocytes % 10.2 Monocytes % 4.6 Eosinophils % 0.8 Basophils % 0.2 Neutrophils # 14.5 H Lymphocytes # 1.8 Monocytes # 0.8 Eosinophils # 0.1 Basophils # 0.0 Sodium Potassium Chloride Carbon Dioxide BUN Creatinine Est GFR ( Amer) Est GFR (Non-Af Amer) BUN/Creatinine Ratio Glucose POC Glucose 102 H 89 Calculated Osmolality Calcium Magnesium Total Bilirubin AST ALT Alkaline Phosphatase Serum Total Protein Albumin Globulin Albumin/Globulin Ratio 01/14/17 01/14/17 08:26 11:12 WBC RBC Hgb Hct MCV MCH MCHC RDW Plt Count MPV Immature Gran % Seg Neutrophils % Lymphocytes % Monocytes % Eosinophils % Basophils % Neutrophils # Lymphocytes # Monocytes # Eosinophils # Basophils # Sodium 140 Potassium 3.4 L Chloride 108 Carbon Dioxide 27 BUN 14 Creatinine 0.63 Est GFR ( Amer) > 60 Est GFR (Non-Af Amer) > 60 BUN/Creatinine Ratio 22 Glucose 100 H POC Glucose 89 Calculated Osmolality 291 Calcium 7.8 L Magnesium 1.5 L Total Bilirubin 0.5 AST 59 H ALT 51 Alkaline Phosphatase 138 H Serum Total Protein 5.2 L Albumin 1.7 L Globulin 3.5 Albumin/Globulin Ratio 0.5 L - ABG Interpretation ABG results: ABG ABG pH 7.46 pH Units (7.32-7.45) H 01/10/17 04:50 ABG pCO2 42 mmHg (35-45) 01/10/17 04:50 ABG pO2 76 mmHg (85-104) L 01/10/17 04:50 ABG O2 Saturation 96 % (95-98) 01/10/17 04:50 PT/INR, D-dimer PT 14.8 Seconds (9.4-12.1) H 01/09/17 02:37 Consult Discharge Plan - Plan Referrals: Mikie Etienne MD [Primary Care Provider] - 01/29/17 11:15 am
[2017-01-14] MEDS ORDERED: Magnesium Sulfate 2 GM in D5% in Water 100 ML IVPB ONE (13:34)
[2017-01-14] MEDS: Levofloxacin 500 MG/100 ML 500 MG/100 ML BAG IVPB SCH (16:23)
[2017-01-14] MEDS: D5% in 0.45% NACL 1,000 ML IVC SCH ×2 (21:00→23:56)
[2017-01-15] MEDS: Metoclopramide 10 MG/2 ML VIAL IVP SCH ×5 (00:01→23:38)
[2017-01-15] MEDS: *HR* Morphine 2 MG/ML SYRINGE IVP PRN ×6 (00:34→23:48)
[2017-01-15] MEDS: Ipratropium/Albuterol Neb 3 ML IH SCH ×6 (03:55→23:04)
[2017-01-15 04:07] LABS: Basophils % 0.2 %; Eosinophils # 0.2 K/mcL (0.0-0.6); Hematocrit 28.5 % (35.3-44.9); Hemoglobin 9.3 g/dL (11.5-15.4); Immature Granulocytes % 1.3 % (0-4); Lymphocytes # 1.5 K/mcL (0.6-4.6); Lymphocytes % 8.4 %; Mean Corpuscular HGB Conc 32.6 g/dL (31.6-35.5); Mean Corpuscular Hemoglobin 30.3 pg (28.0-33.3); Mean Corpuscular Volume 92.8 fL (83.0-100.0); Mean Platelet Volume 10.6 fL (9.4-12.4); Monocytes % 5.5 %; Neutrophils # 14.8 K/mcL (1.6-8.9); Platelet Count 775 K/mcL (140-400); Red Blood Count 3.07 M/mcL (3.82-4.97); Red Cell Distribution Width 14.7 % (11.5-14.5); Segmented Neutrophils % 83.6 %
[2017-01-15 04:22] LABS: Alanine Aminotransferase 50 Units/L (0-55); Albumin 1.7 g/dL (3.5-5.0); Albumin/Globulin Ratio 0.5 (1.1-2.2); Alkaline Phosphatase 127 Units/L (38-126); Aspartate Amino Transferase 65 Units/L (5-34); BUN/Creatinine Ratio 18 (6-26); Bilirubin,Total 0.5 mg/dL (0.2-1.2); Blood Urea Nitrogen 11 mg/dL (7-20); Calcium 7.6 mg/dL (8.6-10.8); Carbon Dioxide 26 mEq/L (19-29); Chloride 107 mEq/L (98-109); Globulin 3.5 g/dL (2.4-3.5); Glucose 77 mg/dL (70-99); Osmolality,Calculated 284 (280-300); Potassium 3.1 mEq/L (3.5-4.5); Sodium 138 mEq/L (136-145); Total Protein 5.2 g/dL (6.0-8.3); eGFR For African Americans > 60 (> 60); eGFR For Non-African Americans > 60 (> 60)
[2017-01-15] MEDS: *HR* Heparin 5,000 UNIT/ML VIAL SQ SCH ×2 (06:02→16:32)
[2017-01-15] MEDS: Insulin LISPRO 300 UNITS/3 ML VIAL SQ SCH ×4 (06:02→23:47)
[2017-01-15] MEDS ORDERED: Magnesium Sulfate 2 GM in D5% in Water 100 ML IVPB ONE (07:27)
[2017-01-15] MEDS: Aspirin 325 MG TABLET GTUBE SCH ×2 (07:32→09:51)
[2017-01-15] MEDS: MetroNIDAZOLE 500 MG/100 ML 500 MG/100 ML BAG IVPB SCH ×3 (07:32→23:35)
[2017-01-15] MEDS: Pantoprazole 40 MG VIAL IVP SCH (07:32)
[2017-01-15] MEDS ORDERED: Potassium Chloride Elixir 20 MEQ/15 ML UDC GTUBE SCH (09:00)
--- NOTE | 2017-01-15 09:01 | Pulmonology Progress Note ---
<Lurdes Deluna Alve - Last Filed: 01/15/17 11:40> Date of Encounter: 01/15/17 Time of Encounter: 08:30 Assessment and Plan (1) Acute respiratory failure Current Visit: Yes Status: Acute Patient saturating 93-97% on 15L of high-flow NC. Lung sounds with rhonchi. Leukocytosis with WBC 17. Continue treatment for aspiration pneumonia with Levaquin (day#8) and Flagyl (day#4). 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 Continue Levaquin (day#8) and Flagyl (day#4) . Lungs with presence of bilateral rhonchi, right greater than left. Patient saturating 93-98%. Cardiovascular: Systolic blood pressures are stable in 120s. Echo from 01/09/ 17 LVEF 30% with hypokinesis of the mid to apical segments of the left ventricle that is suggestive of Takatsubo cardiomyopathy or extensive infarct. Patient received heparin gtt for 48 hours, which has been discontinued. GI/Nutrition/Electrolytes/Fluids: PEG tube is stopped up and unable to be flushed. Patient getting Regalan q6hr. No reported nausea. LFTs remain elevated. Continue D5 1/2 NS at 50mL/hr. Hypokalemia-replaced. Hypomagnesemia -replaced. GI Prophylaxis: protonix Renal: No evidence of JUN, urine output 750mL in last 24 hours. ID: Leukocytosis with WBC 17, up from yesterday. Thrombocytosis with PLT 775 today, up from 663yesterday. Aspiration pneumonia: continue Levaquin (day #8) and Flagyl (day#4). Afebrile overnight. Heme/Onc: Hb 10. continue to monitor anemia. Leukocytosis, Thrombocytosis. DVT Prophylaxis: Heparin SQ Endocrine: Blood sugars 90-100. Low-dose SS correction. Lines: All lines checked and no evidence of infections PEG tube, alexander, peripheral Skin: skin care to prevent pressure ulcers per nursing routine care. Code status: FULL CODE Qualifiers: Respiratory failure complication: hypoxia Qualified Code(s): J96.01 - Acute respiratory failure with hypoxia (2) Septic shock Current Visit: Yes Status: Acute (3) Aspiration pneumonia Current Visit: Yes Status: Acute Qualifiers: Laterality: right Lung location: lower lobe of lung Qualified Code(s): J69.0 - Pneumonitis due to inhalation of food and vomit (4) Lactic acidosis Current Visit: Yes Status: Resolved (5) Thrombocytosis Current Visit: Yes Status: Acute (6) Anemia Current Visit: Yes Status: Acute Qualifiers: Qualified Code(s): D64.9 - Anemia, unspecified (7) 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 (8) PEG (percutaneous endoscopic gastrostomy) status Current Visit: Yes Status: Chronic (9) Elevated transaminase level Current Visit: Yes Status: Acute (10) Hypomagnesemia Current Visit: Yes Status: Acute (11) Hypokalemia Current Visit: Yes Status: Acute (12) Constipation Current Visit: Yes Status: Resolved Qualifiers: Constipation type: unspecified constipation type Qualified Code(s): K59.00 - Constipation, unspecified (13) DVT prophylaxis Current Visit: Yes Status: Acute Subjective Principal diagnosis: Respiratory Failure, Pneumonia Interval history: Patient saturating 93-97% on 15 L at this time. PEG feeds have been discontinued since airway suctioning was productive of gastric contents. Per nursing staff, patient's PEG tube is clogged today and unable to be flushed. Patient did have bowel movement yesterday. Objective PUL Vital signs: Last Vital Signs Temp 97.8 F 01/15/17 07:20 Pulse 81 01/15/17 08:00 Resp 16 01/15/17 08:00 BP 106/64 01/15/17 08:00 Pulse Ox 96 01/15/17 08:00 General appearance: appears uncomfortable (Anxious) Eyes: nonicteric ENT: oropharynx dry Neck: other (Neck muscles hypertonic) Effort: normal Auscultation: bilateral: rhonchi (Coarse rhonchi throughout all lung meeks) Cardiovascular: regular rate and rhythm Gastrointestinal: normoactive bowel sounds, soft, non-distended, other (Patient tightens abdomen when palpated. Unclear if tender to palpation. PEG in place to LUQ.) Integumentary: normal Extremities: no cyanosis, no edema Musculoskeletal: other (Flexion contractures to bilateral lower extremities. Upper extremities rigid. ) unable to assess due to mental status anxious Results - Laboratory Findings CBC and BMP: 01/15/17 03:51 01/15/17 03:51 ABG ABG pH 7.46 pH Units (7.32-7.45) H 01/10/17 04:50 ABG pCO2 42 mmHg (35-45) 01/10/17 04:50 ABG pO2 76 mmHg (85-104) L 01/10/17 04:50 ABG O2 Saturation 96 % (95-98) 01/10/17 04:50 PT/INR, D-dimer PT 14.8 Seconds (9.4-12.1) H 01/09/17 02:37 Abnormal lab findings: Abnormal lab results WBC 17.7 K/mcL (4.3-11.1) H 01/15/17 03:51 RBC 3.07 M/mcL (3.82-4.97) L 01/15/17 03:51 Hgb 9.3 g/dL (11.5-15.4) L 01/15/17 03:51 Hct 28.5 % (35.3-44.9) L 01/15/17 03:51 RDW 14.7 % (11.5-14.5) H 01/15/17 03:51 Plt Count 775 K/mcL (140-400) H 01/15/17 03:51 Neutrophils # 14.8 K/mcL (1.6-8.9) H 01/15/17 03:51 Nucleated RBCs/100 WBC 0.1 /100 WBC (0) H 01/12/17 05:29 Smudge Cells Present (Not Present) A 01/10/17 05:10 Toxic Granulation Present (Not Present) A 01/09/17 01:02 Dohle Bodies Present (Not Present) A 01/09/17 01:02 PT 14.8 Seconds (9.4-12.1) H 01/09/17 02:37 APTT 69.5 Seconds (26.0-36.0) H D 01/10/17 18:20 ABG pH 7.46 pH Units (7.32-7.45) H 01/10/17 04:50 ABG pO2 76 mmHg (85-104) L 01/10/17 04:50 ABG HCO3 29.9 mEQ/L (21-27) H 01/10/17 04:50 ABG Total CO2 31.2 mEq/L (20-26) H 01/10/17 04:50 ABG Base Excess 5.5 mEq/L (-2.0 to 3.0) H 01/10/17 04:50 VBG pH 7.43 pH Units (7.32-7.42) H 01/07/17 14:46 VBG HCO3 30.5 mEq/L (21-27) H 01/07/17 14:46 Potassium 3.1 mEq/L (3.5-4.5) L 01/15/17 03:51 Calcium 7.6 mg/dL (8.6-10.8) L 01/15/17 03:51 Phosphorus 4.9 mg/dL (2.3-4.7) H D 01/08/17 05:26 AST 65 Units/L (5-34) H 01/15/17 03:51 Alkaline Phosphatase 127 Units/L (38-126) H 01/15/17 03:51 Creatine Kinase 220 U/L (20-180) H 01/09/17 02:37 Troponin I 2.47 ng/mL (0-0.03) H* 01/09/17 07:12 C-Reactive Protein 315 mg/L (Less than 5) H 01/07/17 20:59 B-Natriuretic Peptide 773 pg/mL (0-100) H 01/09/17 02:37 Serum Total Protein 5.2 g/dL (6.0-8.3) L 01/15/17 03:51 Prealbumin 4.0 mg/dL (16.0-38.0) L 01/08/17 09:18 Albumin 1.7 g/dL (3.5-5.0) L 01/15/17 03:51 Albumin/Globulin Ratio 0.5 (1.1-2.2) L 01/15/17 03:51 Urine Clarity Cloudy (Clear) A 01/07/17 15:55 Urine Protein 30 mg/dL (Neg-Trace) H 01/07/17 15:55 Urine Blood Small (Negative) H 01/07/17 15:55 Urine Bilirubin Small (Negative) H 01/07/17 15:55 Ur Leukocyte Esterase Small (Negative) H 01/07/17 15:55 Urine Microscopic RBC 15-30 per hpf (0-3) H 01/07/17 15:55 Urine Microscopic WBC 15-30 per hpf (0-3) H 01/07/17 15:55 Ur Squamous Epith Cells Many per lpf (None-Few) H 01/07/17 15:55 Hyaline Casts Moderate per lpf (None-Few) H 01/07/17 15:55 Ur Culture Indicated? YES (NO) A 01/07/17 15:55 - Clinical Findings Intake & Output: Intake & Output 01/14/17 01/15/17 01/15/17 23:59 07:59 15:59 Intake Total 1200 / 1200 100 / 100 204 / 204 Output Total 300 / 300 400 / 400 Balance 900 / 900 -300 / -300 204 / 204 Weight 54.567 kg Consult Discharge Plan - Plan Referrals: Mikie Etienne MD [Primary Care Provider] - 01/29/17 11:15 am <Juan Antonio Prado - Last Filed: 01/15/17 14:21> Date of Encounter: 01/15/17 Objective PUL Vital signs: Last Vital Signs Temp 98.7 F 01/15/17 11:46 Pulse 82 01/15/17 14:00 Resp 16 01/15/17 14:00 BP 111/99 01/15/17 14:00 Pulse Ox 96 01/15/17 14:00 Results - Laboratory Findings CBC and BMP: 01/15/17 03:51 01/15/17 03:51 ABG ABG pH 7.46 pH Units (7.32-7.45) H 01/10/17 04:50 ABG pCO2 42 mmHg (35-45) 01/10/17 04:50 ABG pO2 76 mmHg (85-104) L 01/10/17 04:50 ABG O2 Saturation 96 % (95-98) 01/10/17 04:50 PT/INR, D-dimer PT 14.8 Seconds (9.4-12.1) H 01/09/17 02:37 Abnormal lab findings: Abnormal lab results WBC 17.7 K/mcL (4.3-11.1) H 01/15/17 03:51 RBC 3.07 M/mcL (3.82-4.97) L 01/15/17 03:51 Hgb 9.3 g/dL (11.5-15.4) L 01/15/17 03:51 Hct 28.5 % (35.3-44.9) L 01/15/17 03:51 RDW 14.7 % (11.5-14.5) H 01/15/17 03:51 Plt Count 775 K/mcL (140-400) H 01/15/17 03:51 Neutrophils # 14.8 K/mcL (1.6-8.9) H 01/15/17 03:51 Nucleated RBCs/100 WBC 0.1 /100 WBC (0) H 01/12/17 05:29 Smudge Cells Present (Not Present) A 01/10/17 05:10 Toxic Granulation Present (Not Present) A 01/09/17 01:02 Dohle Bodies Present (Not Present) A 01/09/17 01:02 PT 14.8 Seconds (9.4-12.1) H 01/09/17 02:37 APTT 69.5 Seconds (26.0-36.0) H D 01/10/17 18:20 ABG pH 7.46 pH Units (7.32-7.45) H 01/10/17 04:50 ABG pO2 76 mmHg (85-104) L 01/10/17 04:50 ABG HCO3 29.9 mEQ/L (21-27) H 01/10/17 04:50 ABG Total CO2 31.2 mEq/L (20-26) H 01/10/17 04:50 ABG Base Excess 5.5 mEq/L (-2.0 to 3.0) H 01/10/17 04:50 VBG pH 7.43 pH Units (7.32-7.42) H 01/07/17 14:46 VBG HCO3 30.5 mEq/L (21-27) H 01/07/17 14:46 Potassium 3.1 mEq/L (3.5-4.5) L 01/15/17 03:51 Calcium 7.6 mg/dL (8.6-10.8) L 01/15/17 03:51 Phosphorus 4.9 mg/dL (2.3-4.7) H D 01/08/17 05:26 AST 65 Units/L (5-34) H 01/15/17 03:51 Alkaline Phosphatase 127 Units/L (38-126) H 01/15/17 03:51 Creatine Kinase 220 U/L (20-180) H 01/09/17 02:37 Troponin I 2.47 ng/mL (0-0.03) H* 01/09/17 07:12 C-Reactive Protein 315 mg/L (Less than 5) H 01/07/17 20:59 B-Natriuretic Peptide 773 pg/mL (0-100) H 01/09/17 02:37 Serum Total Protein 5.2 g/dL (6.0-8.3) L 01/15/17 03:51 Prealbumin 4.0 mg/dL (16.0-38.0) L 01/08/17 09:18 Albumin 1.7 g/dL (3.5-5.0) L 01/15/17 03:51 Albumin/Globulin Ratio 0.5 (1.1-2.2) L 01/15/17 03:51 Urine Clarity Cloudy (Clear) A 01/07/17 15:55 Urine Protein 30 mg/dL (Neg-Trace) H 01/07/17 15:55 Urine Blood Small (Negative) H 01/07/17 15:55 Urine Bilirubin Small (Negative) H 01/07/17 15:55 Ur Leukocyte Esterase Small (Negative) H 01/07/17 15:55 Urine Microscopic RBC 15-30 per hpf (0-3) H 01/07/17 15:55 Urine Microscopic WBC 15-30 per hpf (0-3) H 01/07/17 15:55 Ur Squamous Epith Cells Many per lpf (None-Few) H 01/07/17 15:55 Hyaline Casts Moderate per lpf (None-Few) H 01/07/17 15:55 Ur Culture Indicated? YES (NO) A 01/07/17 15:55 - Clinical Findings Intake & Output: Intake & Output 01/14/17 01/15/17 01/15/17 23:59 07:59 15:59 Intake Total 1200 / 1200 100 / 100 1233 / 1233 Output Total 300 / 300 400 / 400 200 / 200 Balance 900 / 900 -300 / -300 1033 / 1033 Weight 54.567 kg - Attending Attestation I examined the patient and review documentation. All pertinent imaging and laboratory data were reviewed. Patient was discussed on multidisciplinary rounds and agree with resident's documentation of the following additions. Neuro: End-stage Cristina's disease with significant deficits. Communication the patient remains limited. Cardiovascular: Hemodynamically stable with no acute issues. Pulmonary: Now status post several aspiration events. Continues to require significant supplemental oxygen. Airway regimen has been helpful, particularly use of deep tracheal suctioning. Patient also her feeding regimen with cold producing aspiration events, however unlikely that any interventions would make significant difference. Plan to discuss this further with patient's daughter when able. Nephro: No acute issues. GI: Tube feeds held yesterday after apparent recurrent aspiration. PEG tube noted to be clogged today and conservative measures to restore use of unsuccessful. Plan to discuss replacement of tube with GI or surgery. Once tube feeds can be reinitiated, plan for small bolus feeds with head of bed elevated as patient can tolerate. ID: Continue coverage for aspiration pneumonia. Plan for 7 day course. HO: Stable leukocytosis most likely related to resolving aspiration pneumonia. Significant thrombocytosis most likely reactionary. Endo: No acute issues MSK: When necessary morphine for apparent pain Disposition: Patient remained in ICU. Patient was made CODE STATUS DNR/DNI yesterday by her daughter. Plan for continued goals of care discussion given patient's poor short-term prognosis. Critical care time 35 minutes
--- NOTE | 2017-01-15 11:11 | Palliative Progress Note ---
Date of Encounter: 01/15/17 Time of Encounter: 10:40 - Assessment and plan (1) Generalized pain Current Visit: Yes Status: Acute Assessment and plan: Has low dose Morphine ordered PRN. Has utilized x 5 last 24 hours. Monitor (2) Constipation Current Visit: Yes Status: Acute Assessment and plan: Continues on Miralax. + BM yesterday. Monitor Qualifiers: Constipation type: unspecified constipation type Qualified Code(s): K59.00 - Constipation, unspecified (3) Anxiety Current Visit: Yes Status: Acute (4) Counseling regarding advanced directives and goals of care Current Visit: Yes Status: Acute Assessment and plan: PEG hopefully will be able to be changed out today. Attempting to reach family service caseworker through [facility] to discuss plan and social situation. Will be attempting to contact DaughterUma today as well. (5) [place] disease Current Visit: Yes Status: Chronic (6) Acute respiratory failure Current Visit: Yes Status: Acute Qualifiers: Respiratory failure complication: hypoxia Qualified Code(s): J96.01 - Acute respiratory failure with hypoxia (7) Bacterial pneumonia Current Visit: Yes Status: Acute Assessment and plan: Cotninues to receive atb, supportive oxygen, bronchodilators. - Time Spent With Patient Total time spent is greater than 50% in coordination of care (as documented) at patient's floor/unit and/or counseling patient: 25 - 35 minutes - Subjective Interval history: Patient eyes open, smiling. Restless with chorea movements. Appears in no distress. Had repeated vomiting with trickle feeds and these were stopped. PEG is plugged and has been unable to be cleared despite nursing intervention. No family present - Constitutional Vitals: Abnormal lab results WBC 17.7 K/mcL (4.3-11.1) H 01/15/17 03:51 RBC 3.07 M/mcL (3.82-4.97) L 01/15/17 03:51 Hgb 9.3 g/dL (11.5-15.4) L 01/15/17 03:51 Hct 28.5 % (35.3-44.9) L 01/15/17 03:51 RDW 14.7 % (11.5-14.5) H 01/15/17 03:51 Plt Count 775 K/mcL (140-400) H 01/15/17 03:51 Neutrophils # 14.8 K/mcL (1.6-8.9) H 01/15/17 03:51 Nucleated RBCs/100 WBC 0.1 /100 WBC (0) H 01/12/17 05:29 Smudge Cells Present (Not Present) A 01/10/17 05:10 Toxic Granulation Present (Not Present) A 01/09/17 01:02 Dohle Bodies Present (Not Present) A 01/09/17 01:02 PT 14.8 Seconds (9.4-12.1) H 01/09/17 02:37 APTT 69.5 Seconds (26.0-36.0) H D 01/10/17 18:20 ABG pH 7.46 pH Units (7.32-7.45) H 01/10/17 04:50 ABG pO2 76 mmHg (85-104) L 01/10/17 04:50 ABG HCO3 29.9 mEQ/L (21-27) H 01/10/17 04:50 ABG Total CO2 31.2 mEq/L (20-26) H 01/10/17 04:50 ABG Base Excess 5.5 mEq/L (-2.0 to 3.0) H 01/10/17 04:50 VBG pH 7.43 pH Units (7.32-7.42) H 01/07/17 14:46 VBG HCO3 30.5 mEq/L (21-27) H 01/07/17 14:46 Potassium 3.1 mEq/L (3.5-4.5) L 01/15/17 03:51 Calcium 7.6 mg/dL (8.6-10.8) L 01/15/17 03:51 Phosphorus 4.9 mg/dL (2.3-4.7) H D 01/08/17 05:26 AST 65 Units/L (5-34) H 01/15/17 03:51 Alkaline Phosphatase 127 Units/L (38-126) H 01/15/17 03:51 Creatine Kinase 220 U/L (20-180) H 01/09/17 02:37 Troponin I 2.47 ng/mL (0-0.03) H* 01/09/17 07:12 C-Reactive Protein 315 mg/L (Less than 5) H 01/07/17 20:59 B-Natriuretic Peptide 773 pg/mL (0-100) H 01/09/17 02:37 Serum Total Protein 5.2 g/dL (6.0-8.3) L 01/15/17 03:51 Prealbumin 4.0 mg/dL (16.0-38.0) L 01/08/17 09:18 Albumin 1.7 g/dL (3.5-5.0) L 01/15/17 03:51 Albumin/Globulin Ratio 0.5 (1.1-2.2) L 01/15/17 03:51 Urine Clarity Cloudy (Clear) A 01/07/17 15:55 Urine Protein 30 mg/dL (Neg-Trace) H 01/07/17 15:55 Urine Blood Small (Negative) H 01/07/17 15:55 Urine Bilirubin Small (Negative) H 01/07/17 15:55 Ur Leukocyte Esterase Small (Negative) H 01/07/17 15:55 Urine Microscopic RBC 15-30 per hpf (0-3) H 01/07/17 15:55 Urine Microscopic WBC 15-30 per hpf (0-3) H 01/07/17 15:55 Ur Squamous Epith Cells Many per lpf (None-Few) H 01/07/17 15:55 Hyaline Casts Moderate per lpf (None-Few) H 01/07/17 15:55 Ur Culture Indicated? YES (NO) A 01/07/17 15:55 General appearance: Present: no acute distress - Respiratory Additional comments: Breath sounds course with occasional rhonchi - Cardiovascular Cardiovascular exam: Present: +S1, +S2 - GI/Abdominal GI/Abdominal exam: Present: normal bowel sounds, soft Additional comments: PEG intact and clamped - Extremities Exam Extremities exam: Present: normal capillary refill, normal inspection Additional comments: Contractures noted to extremities - Neurological Exam Neurological exam: Present: alert Additional comments: Makes grunting noise occasaionally. Does not verbalize otherwise or follow commands. - Skin Skin exam: Present: dry, pallor, warm Palliative Quality Palliative Quality: Screen for Code Status: Yes, Screen for Goals of Care: Yes, Screen for Pain: NA, If Pain Regimen Started, Initiate Bowel Regimen: NA, Screen for Nausea/Vomitting: NA Code Status: 01/14/17 10:59 CODE [Resuscitation Status: Active] [RES] Routine Comment: Verified with daughter Uma Brewer 10:53 01/14 Resuscitation Status: [id number] - Labs CBC & Chem 7: 01/15/17 03:51 01/15/17 03:51 Labs: Laboratory Results - last 24 hr 01/14/17 01/14/17 01/14/17 11:12 17:22 23:39 WBC RBC Hgb Hct MCV MCH MCHC RDW Plt Count MPV Immature Gran % Seg Neutrophils % Lymphocytes % Monocytes % Eosinophils % Basophils % Neutrophils # Lymphocytes # Monocytes # Eosinophils # Basophils # Sodium Potassium Chloride Carbon Dioxide BUN Creatinine Est GFR ( Amer) Est GFR (Non-Af Amer) BUN/Creatinine Ratio Glucose POC Glucose 89 96 H 72 Calculated Osmolality Calcium Magnesium Total Bilirubin AST ALT Alkaline Phosphatase Serum Total Protein Albumin Globulin Albumin/Globulin Ratio 01/15/17 01/15/17 01/15/17 03:51 03:51 03:51 WBC 17.7 H RBC 3.07 L Hgb 9.3 L Hct 28.5 L MCV 92.8 MCH 30.3 MCHC 32.6 RDW 14.7 H Plt Count 775 H MPV 10.6 Immature Gran % 1.3 Seg Neutrophils % 83.6 Lymphocytes % 8.4 Monocytes % 5.5 Eosinophils % 1.0 Basophils % 0.2 Neutrophils # 14.8 H Lymphocytes # 1.5 Monocytes # 1.0 Eosinophils # 0.2 Basophils # 0.0 Sodium 138 Potassium 3.1 L Chloride 107 Carbon Dioxide 26 BUN 11 Creatinine 0.62 Est GFR ( Amer) > 60 Est GFR (Non-Af Amer) > 60 BUN/Creatinine Ratio 18 Glucose 77 POC Glucose Calculated Osmolality 284 Calcium 7.6 L Magnesium 1.6 Total Bilirubin 0.5 AST 65 H ALT 50 Alkaline Phosphatase 127 H Serum Total Protein 5.2 L Albumin 1.7 L Globulin 3.5 Albumin/Globulin Ratio 0.5 L - ABG Interpretation ABG results: ABG ABG pH 7.46 pH Units (7.32-7.45) H 01/10/17 04:50 ABG pCO2 42 mmHg (35-45) 01/10/17 04:50 ABG pO2 76 mmHg (85-104) L 01/10/17 04:50 ABG O2 Saturation 96 % (95-98) 01/10/17 04:50 PT/INR, D-dimer PT 14.8 Seconds (9.4-12.1) H 01/09/17 02:37 Consult Discharge Plan - Plan Referrals: Mikie Etienne MD [Primary Care Provider] - 01/29/17 11:15 am
[2017-01-15] MEDS: Ondansetron 4 MG/2 ML VIAL IVP PRN (13:14)
--- NOTE | 2017-01-15 15:03 | Event Note ---
Date of Encounter: 01/15/17 Time of Encounter: 15:00 Have attempted to contact daughter Uma throughout the day without success. Did leave voicemail with my contact information. Will f/u Thursday. Home care rehabilitation case coordinator planned on visiting and speaking with daughter to discuss different options for homecare, including hospice.
[2017-01-15] MEDS: Levofloxacin 500 MG/100 ML 500 MG/100 ML BAG IVPB SCH (16:00)
--- NOTE | 2017-01-15 17:17 | Event Note ---
Date of Encounter: 01/15/17 Time of Encounter: 17:16 I spoke to the patient's daughter, Uma, who is the POA. I instructed Uma that the patient's PEG tube is not functioning properly. POA requests that PEG tube be replaced.
[2017-01-15] MEDS: *HR* Dextrose 50 % in Water (Syg) 50 ML SYRINGE IVP PRN ×2 (17:55→22:30)
[2017-01-16 03:47] LABS: Basophils % 0.1 %; Eosinophils # 0.2 K/mcL (0.0-0.6); Eosinophils % 1.2 %; Hematocrit 26.7 % (35.3-44.9); Hemoglobin 8.6 g/dL (11.5-15.4); Immature Granulocytes % 0.6 % (0-4); Lymphocytes # 1.4 K/mcL (0.6-4.6); Mean Corpuscular HGB Conc 32.2 g/dL (31.6-35.5); Mean Corpuscular Hemoglobin 29.9 pg (28.0-33.3); Mean Corpuscular Volume 92.7 fL (83.0-100.0); Mean Platelet Volume 9.9 fL (9.4-12.4); Monocytes # 0.9 K/mcL (0.0-1.3); Monocytes % 6.5 %; Neutrophils # 11.4 K/mcL (1.6-8.9); Platelet Count 777 K/mcL (140-400); Red Blood Count 2.88 M/mcL (3.82-4.97); Red Cell Distribution Width 14.7 % (11.5-14.5); Segmented Neutrophils % 81.6 %
[2017-01-16] MEDS: *HR* Dextrose 50 % in Water (Syg) 50 ML SYRINGE IVP PRN ×2 (03:51→16:37)
[2017-01-16] MEDS: Ipratropium/Albuterol Neb 3 ML IH SCH ×6 (03:57→20:09)
[2017-01-16 04:01] LABS: Alanine Aminotransferase 42 Units/L (0-55); Albumin 1.7 g/dL (3.5-5.0); Albumin/Globulin Ratio 0.5 (1.1-2.2); Alkaline Phosphatase 117 Units/L (38-126); Aspartate Amino Transferase 48 Units/L (5-34); BUN/Creatinine Ratio 11 (6-26); Bilirubin,Total 0.5 mg/dL (0.2-1.2); Blood Urea Nitrogen 7 mg/dL (7-20); Calcium 7.7 mg/dL (8.6-10.8); Carbon Dioxide 27 mEq/L (19-29); Chloride 105 mEq/L (98-109); Globulin 3.2 g/dL (2.4-3.5); Glucose 73 mg/dL (70-99); Magnesium 1.5 mg/dL (1.6-2.6); Osmolality,Calculated 283 (280-300); Potassium 3.1 mEq/L (3.5-4.5); Sodium 138 mEq/L (136-145); Total Protein 4.9 g/dL (6.0-8.3); eGFR For African Americans > 60 (> 60); eGFR For Non-African Americans > 60 (> 60)
[2017-01-16] MEDS: Insulin LISPRO 300 UNITS/3 ML VIAL SQ SCH ×4 (05:11→23:21)
[2017-01-16] MEDS: *HR* Heparin 5,000 UNIT/ML VIAL SQ SCH ×2 (05:13→16:42)
[2017-01-16] MEDS: Metoclopramide 10 MG/2 ML VIAL IVP SCH ×3 (05:13→16:43)
[2017-01-16] MEDS: Aspirin 325 MG TABLET GTUBE SCH (07:47)
[2017-01-16] MEDS: MetroNIDAZOLE 500 MG/100 ML 500 MG/100 ML BAG IVPB SCH ×2 (07:55→16:38)
[2017-01-16] MEDS: Pantoprazole 40 MG VIAL IVP SCH (07:55)
[2017-01-16] MEDS: *HR* Morphine 2 MG/ML SYRINGE IVP PRN (07:56)
--- NOTE | 2017-01-16 08:13 | Pulmonology Progress Note ---
<Lurdes Deluna Alve - Last Filed: 01/16/17 12:29> Date of Encounter: 01/16/17 Time of Encounter: 07:50 Assessment and Plan (1) Acute respiratory failure Current Visit: Yes Status: Acute Patient saturating 95-100% on 15L Non-rebreather mask. Lung sounds with rhonchi. Leukocytosis with WBC 17. Continue treatment for aspiration pneumonia with Levaquin (day#9) and Flagyl (day#5). 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 Lungs with presence of bilateral rhonchi, right greater than left. Patient saturating 95-100%. Cardiovascular: Systolic blood pressures are stable in 120s. Echo from LVEF 30% with hypokinesis of the mid to apical segments of the left ventricle that is suggestive of Takatsubo cardiomyopathy or extensive infarct. Patient received heparin gtt for 48 hours, which has been discontinued. GI/Nutrition/Electrolytes/Fluids: Consulted Dr. Velasquez for replacement of PEG tube today. Will attempt to feed patient via PEG once PEG is replaced. Patient getting Regalan q6hr. No reported nausea. Electrolyte protocol for hypokalemia and hypomagnesemia. GI Prophylaxis: protonix Renal: No evidence of JUN, urine output 1L in last 24 hours. ID: Leukocytosis trending downward with WBC 13 down from 17 yesterday. Thrombocytosis with PLT 777 today, stable from yesterday. Aspiration pneumonia continue Levaquin (day #9) and Flagyl (day#5). Afebrile overnight. Heme/Onc: Hb 8.6. continue to monitor anemia. Leukocytosis, Thrombocytosis. DVT Prophylaxis: Heparin SQ Endocrine: Patient with multiple episodes of hypoglycemia requiring treatment overnight. Accuchecks Q2H. Hypoglycemia protocol. Lines: All lines checked and no evidence of infections PEG tube, alexander, peripheral Skin: skin care to prevent pressure ulcers per nursing routine care. Code status: [id number] Qualifiers: Respiratory failure complication: hypoxia Qualified Code(s): J96.01 - Acute respiratory failure with hypoxia (2) Septic shock Current Visit: Yes Status: Acute (3) Aspiration pneumonia Current Visit: Yes Status: Acute Qualifiers: Aspiration pneumonia type: due to regurgitated food Laterality: right Lung location: lower lobe of lung Qualified Code(s): J69.0 - Pneumonitis due to inhalation of food and vomit (4) Lactic acidosis Current Visit: Yes Status: Resolved (5) Thrombocytosis Current Visit: Yes Status: Acute (6) Anemia Current Visit: Yes Status: Acute Qualifiers: Qualified Code(s): 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 (8) PEG (percutaneous endoscopic gastrostomy) status Current Visit: Yes Status: Chronic (9) Elevated transaminase level Current Visit: Yes Status: Acute (10) Hypomagnesemia Current Visit: Yes Status: Acute (11) Hypokalemia Current Visit: Yes Status: Acute (12) Constipation Current Visit: Yes Status: Resolved Qualifiers: Constipation type: unspecified constipation type Qualified Code(s): K59.00 - Constipation, unspecified (13) DVT prophylaxis Current Visit: Yes Status: Acute Subjective Principal diagnosis: Respiratory Failure, Pneumonia Interval history: Patient had multiple desaturation events overnight. She required deep suctioning. She is now on Non-rebreather mask at 15L and maintaining O2 sat of 99%. Due to PEG tube being nonfunctional, we have consulted surgery for PEG tube replacement. It is the POA's desire to have PEG replaced. Patient have very labile blood glucose measurements overnight requiring Accuchecks every 2 hours. She did require glucose replacement at times. Per nursing staff, patient continues to exhibit signs and symptoms of anxiety and pain with facial grimacing. This was improved with administration of morphine overnight. Objective PUL Vital signs: Last Vital Signs Temp 98.7 F 01/16/17 07:42 Pulse 82 01/16/17 06:00 Resp 16 01/16/17 06:00 BP 98/68 01/16/17 06:00 Pulse Ox 100 01/16/17 06:00 General appearance: appears uncomfortable Eyes: nonicteric ENT: oropharynx dry Neck: other (Neck muscles hypertonic) Auscultation: bilateral: rhonchi (Rhonchi worsened from yesterday) Cardiovascular: regular rate and rhythm Gastrointestinal: normoactive bowel sounds, soft, non-tender, non-distended Integumentary: normal Extremities: no cyanosis, no edema Musculoskeletal: other (Flexion contractures to bilateral lower extremities. 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 ) other (Unable to assess due to fact that patient is nonverbal) anxious Results - Laboratory Findings CBC and BMP: 01/16/17 03:40 01/16/17 03:40 ABG ABG pH 7.46 pH Units (7.32-7.45) H 01/10/17 04:50 ABG pCO2 42 mmHg (35-45) 01/10/17 04:50 ABG pO2 76 mmHg (85-104) L 01/10/17 04:50 ABG O2 Saturation 96 % (95-98) 01/10/17 04:50 PT/INR, D-dimer PT 14.8 Seconds (9.4-12.1) H 01/09/17 02:37 Abnormal lab findings: Abnormal lab results WBC 13.9 K/mcL (4.3-11.1) H 01/16/17 03:40 RBC 2.88 M/mcL (3.82-4.97) L 01/16/17 03:40 Hgb 8.6 g/dL (11.5-15.4) L 01/16/17 03:40 Hct 26.7 % (35.3-44.9) L 01/16/17 03:40 RDW 14.7 % (11.5-14.5) H 01/16/17 03:40 Plt Count 777 K/mcL (140-400) H 01/16/17 03:40 Neutrophils # 11.4 K/mcL (1.6-8.9) H 01/16/17 03:40 Nucleated RBCs/100 WBC 0.1 /100 WBC (0) H 01/12/17 05:29 Smudge Cells Present (Not Present) A 01/10/17 05:10 Toxic Granulation Present (Not Present) A 01/09/17 01:02 Dohle Bodies Present (Not Present) A 01/09/17 01:02 PT 14.8 Seconds (9.4-12.1) H 01/09/17 02:37 APTT 69.5 Seconds (26.0-36.0) H D 01/10/17 18:20 ABG pH 7.46 pH Units (7.32-7.45) H 01/10/17 04:50 ABG pO2 76 mmHg (85-104) L 01/10/17 04:50 ABG HCO3 29.9 mEQ/L (21-27) H 01/10/17 04:50 ABG Total CO2 31.2 mEq/L (20-26) H 01/10/17 04:50 ABG Base Excess 5.5 mEq/L (-2.0 to 3.0) H 01/10/17 04:50 VBG pH 7.43 pH Units (7.32-7.42) H 01/07/17 14:46 VBG HCO3 30.5 mEq/L (21-27) H 01/07/17 14:46 Potassium 3.1 mEq/L (3.5-4.5) L 01/16/17 03:40 POC Glucose 98 (58-89) H 01/16/17 07:26 Calcium 7.7 mg/dL (8.6-10.8) L 01/16/17 03:40 Phosphorus 4.9 mg/dL (2.3-4.7) H D 01/08/17 05:26 Magnesium 1.5 mg/dL (1.6-2.6) L 01/16/17 03:40 AST 48 Units/L (5-34) H 01/16/17 03:40 Creatine Kinase 220 U/L (20-180) H 01/09/17 02:37 Troponin I 2.47 ng/mL (0-0.03) H* 01/09/17 07:12 C-Reactive Protein 315 mg/L (Less than 5) H 01/07/17 20:59 B-Natriuretic Peptide 773 pg/mL (0-100) H 01/09/17 02:37 Serum Total Protein 4.9 g/dL (6.0-8.3) L 01/16/17 03:40 Prealbumin 4.0 mg/dL (16.0-38.0) L 01/08/17 09:18 Albumin 1.7 g/dL (3.5-5.0) L 01/16/17 03:40 Albumin/Globulin Ratio 0.5 (1.1-2.2) L 01/16/17 03:40 Urine Clarity Cloudy (Clear) A 01/07/17 15:55 Urine Protein 30 mg/dL (Neg-Trace) H 01/07/17 15:55 Urine Blood Small (Negative) H 01/07/17 15:55 Urine Bilirubin Small (Negative) H 01/07/17 15:55 Ur Leukocyte Esterase Small (Negative) H 01/07/17 15:55 Urine Microscopic RBC 15-30 per hpf (0-3) H 01/07/17 15:55 Urine Microscopic WBC 15-30 per hpf (0-3) H 01/07/17 15:55 Ur Squamous Epith Cells Many per lpf (None-Few) H 01/07/17 15:55 Hyaline Casts Moderate per lpf (None-Few) H 01/07/17 15:55 Ur Culture Indicated? YES (NO) A 01/07/17 15:55 - Clinical Findings Intake & Output: Intake & Output 01/15/17 01/16/17 01/16/17 23:59 07:59 15:59 Intake Total 200 / 200 100 / 100 Output Total 300 / 300 800 / 800 Balance -100 / -100 -700 / -700 Weight 55.7 kg Consult Discharge Plan - Plan Referrals: Mikie Etienne MD [Primary Care Provider] - 01/29/17 11:15 am <Juan Antonio Prado - Last Filed: 01/16/17 15:02> Date of Encounter: 01/16/17 Objective PUL Vital signs: Last Vital Signs Temp 98.7 F 01/16/17 07:42 Pulse 80 01/16/17 14:00 Resp 18 01/16/17 14:00 BP 118/60 01/16/17 14:00 Pulse Ox 98 01/16/17 14:00 Results - Laboratory Findings CBC and BMP: 01/16/17 03:40 01/16/17 03:40 ABG ABG pH 7.46 pH Units (7.32-7.45) H 01/10/17 04:50 ABG pCO2 42 mmHg (35-45) 01/10/17 04:50 ABG pO2 76 mmHg (85-104) L 01/10/17 04:50 ABG O2 Saturation 96 % (95-98) 01/10/17 04:50 PT/INR, D-dimer PT 14.8 Seconds (9.4-12.1) H 01/09/17 02:37 Abnormal lab findings: Abnormal lab results WBC 13.9 K/mcL (4.3-11.1) H 01/16/17 03:40 RBC 2.88 M/mcL (3.82-4.97) L 01/16/17 03:40 Hgb 8.6 g/dL (11.5-15.4) L 01/16/17 03:40 Hct 26.7 % (35.3-44.9) L 01/16/17 03:40 RDW 14.7 % (11.5-14.5) H 01/16/17 03:40 Plt Count 777 K/mcL (140-400) H 01/16/17 03:40 Neutrophils # 11.4 K/mcL (1.6-8.9) H 01/16/17 03:40 Nucleated RBCs/100 WBC 0.1 /100 WBC (0) H 01/12/17 05:29 Smudge Cells Present (Not Present) A 01/10/17 05:10 Toxic Granulation Present (Not Present) A 01/09/17 01:02 Dohle Bodies Present (Not Present) A 01/09/17 01:02 PT 14.8 Seconds (9.4-12.1) H 01/09/17 02:37 APTT 69.5 Seconds (26.0-36.0) H D 01/10/17 18:20 ABG pH 7.46 pH Units (7.32-7.45) H 01/10/17 04:50 ABG pO2 76 mmHg (85-104) L 01/10/17 04:50 ABG HCO3 29.9 mEQ/L (21-27) H 01/10/17 04:50 ABG Total CO2 31.2 mEq/L (20-26) H 01/10/17 04:50 ABG Base Excess 5.5 mEq/L (-2.0 to 3.0) H 01/10/17 04:50 VBG pH 7.43 pH Units (7.32-7.42) H 01/07/17 14:46 VBG HCO3 30.5 mEq/L (21-27) H 01/07/17 14:46 Potassium 3.1 mEq/L (3.5-4.5) L 01/16/17 03:40 Calcium 7.7 mg/dL (8.6-10.8) L 01/16/17 03:40 Phosphorus 4.9 mg/dL (2.3-4.7) H D 01/08/17 05:26 Magnesium 1.5 mg/dL (1.6-2.6) L 01/16/17 03:40 AST 48 Units/L (5-34) H 01/16/17 03:40 Creatine Kinase 220 U/L (20-180) H 01/09/17 02:37 Troponin I 2.47 ng/mL (0-0.03) H* 01/09/17 07:12 C-Reactive Protein 315 mg/L (Less than 5) H 01/07/17 20:59 B-Natriuretic Peptide 773 pg/mL (0-100) H 01/09/17 02:37 Serum Total Protein 4.9 g/dL (6.0-8.3) L 01/16/17 03:40 Prealbumin 4.0 mg/dL (16.0-38.0) L 01/08/17 09:18 Albumin 1.7 g/dL (3.5-5.0) L 01/16/17 03:40 Albumin/Globulin Ratio 0.5 (1.1-2.2) L 01/16/17 03:40 Urine Clarity Cloudy (Clear) A 01/07/17 15:55 Urine Protein 30 mg/dL (Neg-Trace) H 01/07/17 15:55 Urine Blood Small (Negative) H 01/07/17 15:55 Urine Bilirubin Small (Negative) H 01/07/17 15:55 Ur Leukocyte Esterase Small (Negative) H 01/07/17 15:55 Urine Microscopic RBC 15-30 per hpf (0-3) H 01/07/17 15:55 Urine Microscopic WBC 15-30 per hpf (0-3) H 01/07/17 15:55 Ur Squamous Epith Cells Many per lpf (None-Few) H 01/07/17 15:55 Hyaline Casts Moderate per lpf (None-Few) H 01/07/17 15:55 Ur Culture Indicated? YES (NO) A 01/07/17 15:55 - Clinical Findings Intake & Output: Intake & Output 01/15/17 01/16/17 01/16/17 23:59 07:59 15:59 Intake Total 200 / 200 100 / 100 604 / 604 Output Total 300 / 300 800 / 800 225 / 225 Balance -100 / -100 -700 / -700 379 / 379 Weight 55.7 kg - Attending Attestation I examined the patient reviewed documentation. All pertinent radiographic and laboratory data were reviewed. Patient was discussed in multidisciplinary Rounds and I agree with the resident's documentation following additions. Neuro: Advanced stage Cristina's disease. Significant deficit and difficulty with communication. Patient exhibiting signs of increased anxiety past several days. This is been refractory to empiric analgesia with morphine. Plan for 1 dose of IM Ativan with reassessment. Plan for very judicious use of benzodiazepines if needed. Cardiovascular: Hemodynamically stable. Pulmonary: Status post multiple aspiration events. Still requiring high flow supplemental oxygen but respiratory exam has improved. Continue with airway clearance regimen and deep tracheal suctioning as needed. Nephro: No acute issues. GI: PEG tube is become unusable. Patient to go to IR today for placement of tube with extension to jejunum to promote feeds with reduced risk of aspiration. Patient's daughter will need counseling unlikely need for continuous tube feeds as opposed to bolus feeding. ID: Plan to complete empiric coverage for aspiration pneumonia. Otherwise no indicators of untreated infection. HO: Significant thrombocytosis stable today. Most likely reactive. Endocrine: Persistent hypoglycemia most likely reduced to poor intake and depleted glycogen stores. Patient is been receiving when necessary D50. Prefer to continue when necessary D50 as opposed to D5 drip as followed status has become an issue. Expect improvement hypoglycemia once enteral nutrition can be restored. Musculoskeletal: Multiple systemic effects of long-term Lutcher's disease but no acute issues now. Disposition: Remain in ICU for now but can transfer to internal medicine once feeding tube was replaced Critical care time 35 minutes
[2017-01-16] MEDS ORDERED: Magnesium Sulfate 2 GM in D5% in Water 100 ML IVPB ONE (08:47)
[2017-01-16] MEDS ORDERED: Magnesium Sulfate 2 GM in D5% in Water 100 ML IVPB PRN ×2 (09:56→23:00)
--- NOTE | 2017-01-16 10:57 | Event Note ---
Date of Encounter: 01/16/17 Time of Encounter: 10:45 Mrs. Brewer is a 56-year-old female with a past medical history significant For Dooly's chorea. She initially had a PEG tube placed in [place] [address] Fernandez. We were called and asked to evaluate the patient for her PEG tube being clogged. The patient was seen and evaluated and was found to be at significant risk for aspiration. She is recently not been tolerating her tube feeds via her PEG tube and there have been concerns for aspiration. Her feeds were decreased to 10 mL's per hour and the staff noted that there have been continued concerns for aspiration. At this time we would recommend placement of a gastrojejunostomy tube with interventional radiology due to the patient's significant risk for aspiration. Consult has been ordered and I will notify interventional radiology.
[2017-01-16] MEDS ORDERED: *HR* LORazepam 2 MG/ML VIAL IVP ONE (13:30)
[2017-01-16] MEDS ORDERED: 0.9 % Sodium Chloride 500 ML ONE ×2 (15:09→15:17)
--- NOTE | 2017-01-16 15:35 | Palliative Progress Note ---
Date of Encounter: 01/16/17 Time of Encounter: 14:00 - Assessment and plan (1) Generalized pain Current Visit: Yes Status: Acute Assessment and plan: Continues with Morphine - received x2 last 24 hours (2) Constipation Current Visit: Yes Status: Resolved Qualifiers: Constipation type: unspecified constipation type Qualified Code(s): K59.00 - Constipation, unspecified (3) Anxiety Current Visit: Yes Status: Acute (4) Counseling regarding advanced directives and goals of care Current Visit: Yes Status: Acute Assessment and plan: Phone conference with daughter Uma, myself and [facility] regarding goals of care. 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 Uma is considering hospice care on discharge - she still desires to have G-tube replaced. Discussed d/c equipment needs as well. Will continue to follow. 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 Resp easy - Oxygen requirements remain high. PEG tube to be changed out today. No family at bedside. - Constitutional Vitals: Abnormal lab results WBC 13.9 K/mcL (4.3-11.1) H 01/16/17 03:40 RBC 2.88 M/mcL (3.82-4.97) L 01/16/17 03:40 Hgb 8.6 g/dL (11.5-15.4) L 01/16/17 03:40 Hct 26.7 % (35.3-44.9) L 01/16/17 03:40 RDW 14.7 % (11.5-14.5) H 01/16/17 03:40 Plt Count 777 K/mcL (140-400) H 01/16/17 03:40 Neutrophils # 11.4 K/mcL (1.6-8.9) H 01/16/17 03:40 Nucleated RBCs/100 WBC 0.1 /100 WBC (0) H 01/12/17 05:29 Smudge Cells Present (Not Present) A 01/10/17 05:10 Toxic Granulation Present (Not Present) A 01/09/17 01:02 Dohle Bodies Present (Not Present) A 01/09/17 01:02 PT 14.8 Seconds (9.4-12.1) H 01/09/17 02:37 APTT 69.5 Seconds (26.0-36.0) H D 01/10/17 18:20 ABG pH 7.46 pH Units (7.32-7.45) H 01/10/17 04:50 ABG pO2 76 mmHg (85-104) L 01/10/17 04:50 ABG HCO3 29.9 mEQ/L (21-27) H 01/10/17 04:50 ABG Total CO2 31.2 mEq/L (20-26) H 01/10/17 04:50 ABG Base Excess 5.5 mEq/L (-2.0 to 3.0) H 01/10/17 04:50 VBG pH 7.43 pH Units (7.32-7.42) H 01/07/17 14:46 VBG HCO3 30.5 mEq/L (21-27) H 01/07/17 14:46 Potassium 3.1 mEq/L (3.5-4.5) L 01/16/17 03:40 Calcium 7.7 mg/dL (8.6-10.8) L 01/16/17 03:40 Phosphorus 4.9 mg/dL (2.3-4.7) H D 01/08/17 05:26 Magnesium 1.5 mg/dL (1.6-2.6) L 01/16/17 03:40 AST 48 Units/L (5-34) H 01/16/17 03:40 Creatine Kinase 220 U/L (20-180) H 01/09/17 02:37 Troponin I 2.47 ng/mL (0-0.03) H* 01/09/17 07:12 C-Reactive Protein 315 mg/L (Less than 5) H 01/07/17 20:59 B-Natriuretic Peptide 773 pg/mL (0-100) H 01/09/17 02:37 Serum Total Protein 4.9 g/dL (6.0-8.3) L 01/16/17 03:40 Prealbumin 4.0 mg/dL (16.0-38.0) L 01/08/17 09:18 Albumin 1.7 g/dL (3.5-5.0) L 01/16/17 03:40 Albumin/Globulin Ratio 0.5 (1.1-2.2) L 01/16/17 03:40 Urine Clarity Cloudy (Clear) A 01/07/17 15:55 Urine Protein 30 mg/dL (Neg-Trace) H 01/07/17 15:55 Urine Blood Small (Negative) H 01/07/17 15:55 Urine Bilirubin Small (Negative) H 01/07/17 15:55 Ur Leukocyte Esterase Small (Negative) H 01/07/17 15:55 Urine Microscopic RBC 15-30 per hpf (0-3) H 01/07/17 15:55 Urine Microscopic WBC 15-30 per hpf (0-3) H 01/07/17 15:55 Ur Squamous Epith Cells Many per lpf (None-Few) H 01/07/17 15:55 Hyaline Casts Moderate per lpf (None-Few) H 01/07/17 15:55 Ur Culture Indicated? YES (NO) A 01/07/17 15:55 General appearance: Present: no acute distress - Respiratory Respiratory exam: Present: decreased breath sounds, CTAB Additional comments: Occasional rhonchi noted anteriorally - Cardiovascular Cardiovascular exam: Present: +S1, +S2 - GI/Abdominal GI/Abdominal exam: Present: normal bowel sounds, soft Additional comments: PEG clamped - Extremities Exam Extremities exam: Present: normal capillary refill, normal inspection - Neurological Exam Neurological exam: Present: alert Additional comments: Smiles when spoken to. Does not follow commands. - Skin Skin exam: Present: dry, pallor, warm Palliative Quality Palliative Quality: Screen for Code Status: Yes, Screen for Goals of Care: Yes, Screen for Pain: NA, If Pain Regimen Started, Initiate Bowel Regimen: NA, Screen for Nausea/Vomitting: NA Code Status: 01/14/17 10:59 CODE [Resuscitation Status: Active] [RES] Routine Comment: Verified with daughter Uma Brewer 10:53 01/14 Resuscitation Status: [id number] - Labs CBC & Chem 7: 01/16/17 03:40 01/16/17 03:40 Labs: Laboratory Results - last 24 hr 01/15/17 01/15/17 01/15/17 17:41 19:18 22:21 WBC RBC Hgb Hct MCV MCH MCHC RDW Plt Count MPV Immature Gran % Seg Neutrophils % Lymphocytes % Monocytes % Eosinophils % Basophils % Neutrophils # Lymphocytes # Monocytes # Eosinophils # Basophils # Sodium Potassium Chloride Carbon Dioxide BUN Creatinine Est GFR ( Amer) Est GFR (Non-Af Amer) BUN/Creatinine Ratio Glucose POC Glucose 61 85 67 Calculated Osmolality Calcium Magnesium Total Bilirubin AST ALT Alkaline Phosphatase Serum Total Protein Albumin Globulin Albumin/Globulin Ratio 01/15/17 01/16/17 01/16/17 23:44 03:40 03:40 WBC 13.9 H RBC 2.88 L Hgb 8.6 L Hct 26.7 L MCV 92.7 MCH 29.9 MCHC 32.2 RDW 14.7 H Plt Count 777 H MPV 9.9 Immature Gran % 0.6 Seg Neutrophils % 81.6 Lymphocytes % 10.0 Monocytes % 6.5 Eosinophils % 1.2 Basophils % 0.1 Neutrophils # 11.4 H Lymphocytes # 1.4 Monocytes # 0.9 Eosinophils # 0.2 Basophils # 0.0 Sodium 138 Potassium 3.1 L Chloride 105 Carbon Dioxide 27 BUN 7 Creatinine 0.61 Est GFR ( Amer) > 60 Est GFR (Non-Af Amer) > 60 BUN/Creatinine Ratio 11 Glucose 73 POC Glucose 123 H Calculated Osmolality 283 Calcium 7.7 L Magnesium 1.5 L Total Bilirubin 0.5 AST 48 H ALT 42 Alkaline Phosphatase 117 Serum Total Protein 4.9 L Albumin 1.7 L Globulin 3.2 Albumin/Globulin Ratio 0.5 L 01/16/17 01/16/17 01/16/17 03:43 06:32 07:26 WBC RBC Hgb Hct MCV MCH MCHC RDW Plt Count MPV Immature Gran % Seg Neutrophils % Lymphocytes % Monocytes % Eosinophils % Basophils % Neutrophils # Lymphocytes # Monocytes # Eosinophils # Basophils # Sodium Potassium Chloride Carbon Dioxide BUN Creatinine Est GFR ( Amer) Est GFR (Non-Af Amer) BUN/Creatinine Ratio Glucose POC Glucose 71 110 H 98 H Calculated Osmolality Calcium Magnesium Total Bilirubin AST ALT Alkaline Phosphatase Serum Total Protein Albumin Globulin Albumin/Globulin Ratio 01/16/17 01/16/17 01/16/17 09:43 11:16 13:47 WBC RBC Hgb Hct MCV MCH MCHC RDW Plt Count MPV Immature Gran % Seg Neutrophils % Lymphocytes % Monocytes % Eosinophils % Basophils % Neutrophils # Lymphocytes # Monocytes # Eosinophils # Basophils # Sodium Potassium Chloride Carbon Dioxide BUN Creatinine Est GFR ( Amer) Est GFR (Non-Af Amer) BUN/Creatinine Ratio Glucose POC Glucose 88 92 H 85 Calculated Osmolality Calcium Magnesium Total Bilirubin AST ALT Alkaline Phosphatase Serum Total Protein Albumin Globulin Albumin/Globulin Ratio - ABG Interpretation ABG results: ABG ABG pH 7.46 pH Units (7.32-7.45) H 01/10/17 04:50 ABG pCO2 42 mmHg (35-45) 01/10/17 04:50 ABG pO2 76 mmHg (85-104) L 01/10/17 04:50 ABG O2 Saturation 96 % (95-98) 01/10/17 04:50 PT/INR, D-dimer PT 14.8 Seconds (9.4-12.1) H 01/09/17 02:37 Consult Discharge Plan - Plan Referrals: Mikie Etienne MD [Primary Care Provider] - 01/29/17 11:15 am
--- NOTE | 2017-01-16 16:03 | IR Procedure Note ---
Date of procedure: 01/16/17 Consent Obtained: Written consent Timeout: Correct patient and procedure verified, Correct site verified, Time out performed, Skin prep completed Local anesthetic: Lidocaine 1% Indications: Aspiration, indwelling G tube Procedure Performed: G to GJ conversion Site/Technique: Only cath available is the 16.5f Gj tube. Follow with KUB's to watch tip. Results/Findings: Given original G site, this is at risk for pulling back into the stomach. Post Procedure Treatment Plan: D/w Shireen Gusman after procedure. Monitoring in ICU.
[2017-01-16] MEDS: Levofloxacin 500 MG/100 ML 500 MG/100 ML BAG IVPB SCH (16:39)
[2017-01-16 17:30] LABS: Magnesium 1.7 mg/dL (1.6-2.6); Potassium 3.5 mEq/L (3.5-4.5)
[2017-01-16] MEDS ORDERED: D5% in Water 1,000 ML IVC PRN (23:00)
[2017-01-16] MEDS ORDERED: Dextrose Gel 15 GM PO PRN ×2 (23:00)
[2017-01-16] MEDS ORDERED: *HR* Dextrose 50 % in Water (Syg) 50 ML SYRINGE IVP PRN (23:00)
[2017-01-16] MEDS ORDERED: Naloxone 0.4 MG/ML INJ IVP PRN (23:00)
[2017-01-16] MEDS ORDERED: *HR* Metoprolol 5 MG/5 ML VIAL IVP PRN (23:00)
[2017-01-16] MEDS ORDERED: Bisacodyl 10 MG RECTAL SUPPOSITORY RC PRN (23:00)
[2017-01-16] MEDS ORDERED: Ondansetron 4 MG/2 ML VIAL IVP PRN (23:00)
[2017-01-17] MEDS: Insulin LISPRO 300 UNITS/3 ML VIAL SQ SCH ×4 (00:09→18:53)
[2017-01-17] MEDS: Metoclopramide 10 MG/2 ML VIAL IVP SCH ×5 (00:11→23:43)
[2017-01-17] MEDS: MetroNIDAZOLE 500 MG/100 ML 500 MG/100 ML BAG IVPB SCH ×4 (00:12→23:46)
[2017-01-17] MEDS: Ipratropium/Albuterol Neb 3 ML IH SCH ×6 (00:18→19:44)
[2017-01-17 05:06] LABS: Basophils % 0.2 %; Eosinophils # 0.1 K/mcL (0.0-0.6); Eosinophils % 0.5 %; Hematocrit 27.7 % (35.3-44.9); Hemoglobin 9.2 g/dL (11.5-15.4); Immature Granulocytes % 0.5 % (0-4); Lymphocytes # 1.4 K/mcL (0.6-4.6); Lymphocytes % 8.2 %; Mean Corpuscular HGB Conc 33.2 g/dL (31.6-35.5); Mean Corpuscular Hemoglobin 30.9 pg (28.0-33.3); Monocytes # 1.2 K/mcL (0.0-1.3); Monocytes % 6.9 %; Neutrophils # 14.4 K/mcL (1.6-8.9); Platelet Count 912 K/mcL (140-400); Red Blood Count 2.98 M/mcL (3.82-4.97); Red Cell Distribution Width 15.4 % (11.5-14.5); Segmented Neutrophils % 83.7 %
[2017-01-17 05:19] LABS: BUN/Creatinine Ratio 8 (6-26); Calcium 8.1 mg/dL (8.6-10.8); Carbon Dioxide 27 mEq/L (19-29); Chloride 105 mEq/L (98-109); Glucose 64 mg/dL (70-99); Magnesium 1.4 mg/dL (1.6-2.6); Osmolality,Calculated 283 (280-300); Potassium 3.2 mEq/L (3.5-4.5); Sodium 139 mEq/L (136-145); eGFR For African Americans > 60 (> 60); eGFR For Non-African Americans > 60 (> 60)
[2017-01-17 05:20] LABS: Alanine Aminotransferase 42 Units/L (0-55); Albumin/Globulin Ratio 0.5 (1.1-2.2); Alkaline Phosphatase 120 Units/L (38-126); Aspartate Amino Transferase 50 Units/L (5-34); Globulin 3.7 g/dL (2.4-3.5); Total Protein 5.6 g/dL (6.0-8.3)
[2017-01-17 05:21] LABS: Albumin 1.9 g/dL (3.5-5.0); Bilirubin,Total 0.8 mg/dL (0.2-1.2); Blood Urea Nitrogen 5 mg/dL (7-20)
[2017-01-17 05:23] LABS: Platelet Estimate Marked Increase (Normal)
[2017-01-17] MEDS: *HR* Heparin 5,000 UNIT/ML VIAL SQ SCH ×2 (06:10→18:52)
[2017-01-17] MEDS ORDERED: Potassium Chloride 20 MEQ, Lidocaine 1% 2 ML in D5% in Water 250 ML IVPB ONE (07:56)
[2017-01-17] MEDS ORDERED: Magnesium Sulfate 2 GM in D5% in Water 100 ML IVPB ONE (07:57)
[2017-01-17] MEDS: Aspirin 325 MG TABLET GTUBE SCH (09:10)
[2017-01-17] MEDS: Pantoprazole 40 MG VIAL IVP SCH (09:10)
--- NOTE | 2017-01-17 11:35 | Internal Med Progress Note ---
Date of Encounter: 01/17/17 Time of Encounter: 11:05 - Assessment and plan (1) Acute respiratory failure Current Visit: Yes Status: Acute Assessment and plan: secondary to aspiration PNA continues to require high flow supplemental oxygen worsening leukocytosis noted will add Vancomycin and continue levaquin noted to be tachypneic, will start low dose ativan prn Palliative care team to discuss with family details of goals of care including continuation of abx therapy Qualifiers: Respiratory failure complication: hypoxia Qualified Code(s): J96.01 - Acute respiratory failure with hypoxia (2) Aspiration pneumonia Current Visit: Yes Status: Acute Assessment and plan: as listed above Qualifiers: Aspiration pneumonia type: due to regurgitated food Laterality: right Lung location: lower lobe of lung Qualified Code(s): J69.0 - Pneumonitis due to inhalation of food and vomit (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 Assessment and plan: advanced stage Cristina's disease signficant deficit and difficulty with communication noted to have worsening anxiety, will start low dose ativan (4) DVT prophylaxis Current Visit: Yes Status: Acute Assessment and plan: Heparin SQ (5) HTN (hypertension) Current Visit: Yes Status: Chronic Assessment and plan: BP within acceptable range Qualifiers: Hypertension type: essential hypertension Qualified Code(s): I10 - Essential (primary) hypertension (6) Counseling regarding advanced directives and goals of care Current Visit: Yes Status: Acute Assessment and plan: Palliative care on board and consultation appreciated (7) Anxiety Current Visit: Yes Status: Acute Assessment and plan: will start low dose Ativan in addition to continuation of Wellbutrin (8) Thrombocytosis Current Visit: Yes Status: Acute Assessment and plan: likely secondary to underlying infection (9) PEG (percutaneous endoscopic gastrostomy) status Current Visit: Yes Status: Chronic Assessment and plan: s/p PEG tube replacement restarting tube feedings today - Subjective Interval history: Patient is a 56y/o female with advanced stage Stearns's disease who is admitted for acute respiratory failure secondary to aspiration PNA. Patient was transferred from the ICU on 01/16/17 after code status was changed to DNR/DNI and family considering hospice care. Patient seen and examined at bedside. Pt is nonverbal at baseline. appears tachypneic and anxious. Palliative care team on board to establish detailed goals of care. Pt is s/p PEG tube replacement. Patient has poor prognosis and awaiting family input in further goals of care. Unable to get in touch with family at this time. - Constitutional Vitals: Temp Pulse Resp BP Pulse Ox 98.5 F 102 24 123/61 93 01/17/17 05:45 01/17/17 05:45 01/17/17 07:51 01/17/17 05:45 01/17/17 07:51 General appearance: Present: A&O X 0 (contracted, cachetic). Absent: answers questions appropriately - Eye Eye exam: Present: conjuntiva pink, sclera anicteric - Respiratory Respiratory exam: Present: respiratory distress. Absent: wheezes (coarse breath sounds diffusely) - Cardiovascular Cardiovascular exam: Present: +S1, +S2, tachycardia - GI/Abdominal GI/Abdominal exam: Present: normal bowel sounds, soft. Absent: tenderness (PEG tube in place) - Extremities Exam Extremities exam: Present: warm, radial pulses palpable and symetrical ( contracted upper and lower extremities) - Neurological Exam Neurological exam: Present: alert (awake but nonverbal, anxious) Internal Medicine: Result - Labs CBC & Chem 7: 01/17/17 04:55 01/17/17 04:55 Labs: Short CBC 01/17/17 Range/Units 04:55 WBC 17.2 H (4.3-11.1) K/mcL Hgb 9.2 L (11.5-15.4) g/dL Hct 27.7 L (35.3-44.9) % Plt Count 912 H (140-400) K/mcL Neutrophils # 14.4 H (1.6-8.9) K/mcL BMP 01/16/17 01/17/17 17:11 04:55 Sodium 139 Potassium 3.5 3.2 L Chloride 105 Carbon Dioxide 27 BUN 5 L Creatinine 0.60 Glucose 64 L Calcium 8.1 L Liver Function 01/17/17 Range/Units 04:55 Total Bilirubin 0.8 D (0.2-1.2) mg/dL AST 50 H (5-34) Units/L ALT 42 (0-55) Units/L Alkaline Phosphatase 120 (38-126) Units/L Albumin 1.9 L (3.5-5.0) g/dL - ABG Interpretation ABG results: ABG ABG pH 7.46 pH Units (7.32-7.45) H 01/10/17 04:50 ABG pCO2 42 mmHg (35-45) 01/10/17 04:50 ABG pO2 76 mmHg (85-104) L 01/10/17 04:50 ABG O2 Saturation 96 % (95-98) 01/10/17 04:50 PT/INR, D-dimer PT 14.8 Seconds (9.4-12.1) H 01/09/17 02:37 - Impressions Impressions K[facility] X-Ray 01/17/17 07:00 IMPRESSION: GJ Feeding tube is identified. Tip projects in the right mid abdomen D/ / Renato Starr MD / Renato Starr MD Interpreting Provider: Renato Starr MD Consult Discharge Plan - Plan Referrals: Mikie Etienne MD [Primary Care Provider] - 01/29/17 11:15 am
--- NOTE | 2017-01-17 13:13 | Palliative Progress Note ---
Date of Encounter: 01/17/17 Time of Encounter: 13:00 - Assessment and plan (1) Constipation Current Visit: Yes Status: Resolved Assessment and plan: Currently feedings are off. Abdomen soft, hypoactive BS. Patient had BM yesterday. Plan - Case discussed with Nutrition. Add reglan for GI motility. Hold TF for now. - Miralax to daily regimen - Monitor I&O Qualifiers: Constipation type: unspecified constipation type Qualified Code(s): K59.00 - Constipation, unspecified (2) Counseling regarding advanced directives and goals of care Current Visit: Yes Status: Acute Assessment and plan: Called daughter Uma #[phone] to give update. Follow-up on previous palliative discussion regarding continued antibiotics and TF feedings. I explained that patients WBC keep elevating. Explained that patient is on 12L high flow O2 with sats at 94%. Explained that mother is was unable to tolerate TF without vomiting and aspiration. Explained that effects of Phelan's disease can cause this outcome. I offered sympathy and verbalized that this is a very difficult decision and that the care team is here for her. Uma is unable to visit at this time and would like to do phone conferences as needed. Followed up on Hospice care and discussed philosophy and goals of comfort. Uma to consider transition. Uma is reluctant to change care. She still desires antibiotics and medications. I explained grave outcome of her disease and encouraged her to visit and see patient for herself. She agrees to come this evening as she is unable to come during the day. I explained that she needs Hospice care as the antibiotics are not being effective. She states she will think it over. Hold feedings for now per her request. 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 Currently resides at home in the care of her daughter Uam. Patient admitted with aspiration pneumonia and is currently on 12L high flow with sats at 88% - 94%. Patient is alert, eyes open and smiles at name being said. Patient with chorea to all extremities. Events of yesterday noted with change of PEG Tube feeding stopped at present. Abdomen soft, BS x 4. Patient with BMs. Peg tube intact. No residual pulled from PEG. - Constitutional Vitals: Abnormal lab results WBC 17.2 K/mcL (4.3-11.1) H 01/17/17 04:55 RBC 2.98 M/mcL (3.82-4.97) L 01/17/17 04:55 Hgb 9.2 g/dL (11.5-15.4) L 01/17/17 04:55 Hct 27.7 % (35.3-44.9) L 01/17/17 04:55 RDW 15.4 % (11.5-14.5) H 01/17/17 04:55 Plt Count 912 K/mcL (140-400) H 01/17/17 04:55 Neutrophils # 14.4 K/mcL (1.6-8.9) H 01/17/17 04:55 Nucleated RBCs/100 WBC 0.1 /100 WBC (0) H 01/12/17 05:29 Smudge Cells Present (Not Present) A 01/10/17 05:10 Toxic Granulation Present (Not Present) A 01/09/17 01:02 Dohle Bodies Present (Not Present) A 01/09/17 01:02 Platelet Estimate Marked Increase (Normal) H 01/17/17 04:55 PT 14.8 Seconds (9.4-12.1) H 01/09/17 02:37 APTT 69.5 Seconds (26.0-36.0) H D 01/10/17 18:20 ABG pH 7.46 pH Units (7.32-7.45) H 01/10/17 04:50 ABG pO2 76 mmHg (85-104) L 01/10/17 04:50 ABG HCO3 29.9 mEQ/L (21-27) H 01/10/17 04:50 ABG Total CO2 31.2 mEq/L (20-26) H 01/10/17 04:50 ABG Base Excess 5.5 mEq/L (-2.0 to 3.0) H 01/10/17 04:50 VBG pH 7.43 pH Units (7.32-7.42) H 01/07/17 14:46 VBG HCO3 30.5 mEq/L (21-27) H 01/07/17 14:46 Potassium 3.2 mEq/L (3.5-4.5) L 01/17/17 04:55 BUN 5 mg/dL (7-20) L 01/17/17 04:55 Glucose 64 mg/dL (70-99) L 01/17/17 04:55 POC Glucose 121 (58-89) H 01/16/17 17:07 Calcium 8.1 mg/dL (8.6-10.8) L 01/17/17 04:55 Phosphorus 4.9 mg/dL (2.3-4.7) H D 01/08/17 05:26 Magnesium 1.4 mg/dL (1.6-2.6) L 01/17/17 04:55 AST 50 Units/L (5-34) H 01/17/17 04:55 Creatine Kinase 220 U/L (20-180) H 01/09/17 02:37 Troponin I 2.47 ng/mL (0-0.03) H* 01/09/17 07:12 C-Reactive Protein 315 mg/L (Less than 5) H 01/07/17 20:59 B-Natriuretic Peptide 773 pg/mL (0-100) H 01/09/17 02:37 Serum Total Protein 5.6 g/dL (6.0-8.3) L 01/17/17 04:55 Prealbumin 4.0 mg/dL (16.0-38.0) L 01/08/17 09:18 Albumin 1.9 g/dL (3.5-5.0) L 01/17/17 04:55 Globulin 3.7 g/dL (2.4-3.5) H 01/17/17 04:55 Albumin/Globulin Ratio 0.5 (1.1-2.2) L 01/17/17 04:55 Urine Clarity Cloudy (Clear) A 01/07/17 15:55 Urine Protein 30 mg/dL (Neg-Trace) H 01/07/17 15:55 Urine Blood Small (Negative) H 01/07/17 15:55 Urine Bilirubin Small (Negative) H 01/07/17 15:55 Ur Leukocyte Esterase Small (Negative) H 01/07/17 15:55 Urine Microscopic RBC 15-30 per hpf (0-3) H 01/07/17 15:55 Urine Microscopic WBC 15-30 per hpf (0-3) H 01/07/17 15:55 Ur Squamous Epith Cells Many per lpf (None-Few) H 01/07/17 15:55 Hyaline Casts Moderate per lpf (None-Few) H 01/07/17 15:55 Ur Culture Indicated? YES (NO) A 01/07/17 15:55 - Head Head exam: Present: atraumatic, normal inspection, normocephalic - Eye Eye exam: Present: PERRL Pupils: Present: PERRL - ENT ENT exam: Present: normal exam - Respiratory Respiratory exam: Present: decreased breath sounds - Expanded Respiratory Exam Location: decreased breath sounds: Left, Right, Lower - Cardiovascular Cardiovascular exam: Present: RRR, +S1, +S2 - GI/Abdominal GI/Abdominal exam: Present: normal bowel sounds - Back Exam Back exam: Present: full ROM - Neurological Exam Neurological exam: Present: alert Palliative Quality Palliative Quality: Screen for Code Status: Yes, Screen for Goals of Care: Yes, Screen for Pain: NA, If Pain Regimen Started, Initiate Bowel Regimen: NA, Screen for Nausea/Vomitting: NA Code Status: 01/14/17 10:59 CODE [Resuscitation Status: Active] [RES] Routine Comment: Verified with daughter Uma Brewer 10:53 01/14 Resuscitation Status: [id number] - Labs CBC & Chem 7: 01/17/17 04:55 01/17/17 04:55 Labs: Laboratory Results - last 24 hr 01/16/17 01/16/17 01/16/17 13:47 16:29 17:07 WBC RBC Hgb Hct MCV MCH MCHC RDW Plt Count MPV Immature Gran % Seg Neutrophils % Lymphocytes % Monocytes % Eosinophils % Basophils % Neutrophils # Lymphocytes # Monocytes # Eosinophils # Basophils # Platelet Estimate Sodium Potassium Chloride Carbon Dioxide BUN Creatinine Est GFR ( Amer) Est GFR (Non-Af Amer) BUN/Creatinine Ratio Glucose POC Glucose 85 61 121 H Calculated Osmolality Calcium Magnesium Total Bilirubin AST ALT Alkaline Phosphatase Serum Total Protein Albumin Globulin Albumin/Globulin Ratio 01/16/17 01/17/17 01/17/17 17:11 04:55 04:55 WBC 17.2 H RBC 2.98 L Hgb 9.2 L Hct 27.7 L MCV 93.0 MCH 30.9 MCHC 33.2 RDW 15.4 H Plt Count 912 H MPV 10.0 Immature Gran % 0.5 Seg Neutrophils % 83.7 Lymphocytes % 8.2 Monocytes % 6.9 Eosinophils % 0.5 Basophils % 0.2 Neutrophils # 14.4 H Lymphocytes # 1.4 Monocytes # 1.2 Eosinophils # 0.1 Basophils # 0.0 Platelet Estimate Marked Increase H Sodium 139 Potassium 3.5 3.2 L Chloride 105 Carbon Dioxide 27 BUN 5 L Creatinine 0.60 Est GFR ( Amer) > 60 Est GFR (Non-Af Amer) > 60 BUN/Creatinine Ratio 8 Glucose 64 L POC Glucose Calculated Osmolality 283 Calcium 8.1 L Magnesium 1.7 1.4 L Total Bilirubin 0.8 D AST 50 H ALT 42 Alkaline Phosphatase 120 Serum Total Protein 5.6 L Albumin 1.9 L Globulin 3.7 H Albumin/Globulin Ratio 0.5 L - Impressions Impressions [facility] X-Ray 01/17/17 07:00 IMPRESSION: GJ Feeding tube is identified. Tip projects in the right mid abdomen D/ / Renato Starr MD / Renato Starr MD Interpreting Provider: Renato Starr MD - ABG Interpretation ABG results: ABG ABG pH 7.46 pH Units (7.32-7.45) H 01/10/17 04:50 ABG pCO2 42 mmHg (35-45) 01/10/17 04:50 ABG pO2 76 mmHg (85-104) L 01/10/17 04:50 ABG O2 Saturation 96 % (95-98) 01/10/17 04:50 PT/INR, D-dimer PT 14.8 Seconds (9.4-12.1) H 01/09/17 02:37 Consult Discharge Plan - Plan Referrals: Mikie Etienne MD [Primary Care Provider] - 01/29/17 11:15 am
[2017-01-17] MEDS: Vancomycin 1,000 MG in D5% in Water 250 ML IVPB SCH ×2 (14:20→23:40)
[2017-01-17] MEDS: *HR* LORazepam 2 MG/ML VIAL IVP PRN (14:46)
[2017-01-17] MEDS: *HR* Morphine 2 MG/ML SYRINGE IVP PRN (16:25)
[2017-01-17] MEDS: Levofloxacin 500 MG/100 ML 500 MG/100 ML BAG IVPB SCH (18:52)
[2017-01-18] MEDS: Ipratropium/Albuterol Neb 3 ML IH SCH ×7 (00:23→23:58)
[2017-01-18] MEDS: *HR* LORazepam 2 MG/ML VIAL IVP PRN (02:22)
[2017-01-18 04:28] LABS: Basophils % 0.2 %; Eosinophils # 0.1 K/mcL (0.0-0.6); Eosinophils % 0.7 %; Hematocrit 25.2 % (35.3-44.9); Hemoglobin 8.2 g/dL (11.5-15.4); Immature Granulocytes % 0.4 % (0-4); Lymphocytes # 0.9 K/mcL (0.6-4.6); Lymphocytes % 6.8 %; Mean Corpuscular HGB Conc 32.5 g/dL (31.6-35.5); Mean Corpuscular Hemoglobin 30.1 pg (28.0-33.3); Mean Corpuscular Volume 92.6 fL (83.0-100.0); Mean Platelet Volume 9.6 fL (9.4-12.4); Monocytes # 1.2 K/mcL (0.0-1.3); Neutrophils # 11.4 K/mcL (1.6-8.9); Platelet Count 821 K/mcL (140-400); Red Blood Count 2.72 M/mcL (3.82-4.97); Red Cell Distribution Width 15.5 % (11.5-14.5); Segmented Neutrophils % 82.9 %
[2017-01-18 04:44] LABS: Alanine Aminotransferase 34 Units/L (0-55); Albumin/Globulin Ratio 0.5 (1.1-2.2); Alkaline Phosphatase 102 Units/L (38-126); Aspartate Amino Transferase 39 Units/L (5-34); BUN/Creatinine Ratio 8 (6-26); Bilirubin,Total 0.6 mg/dL (0.2-1.2); Calcium 7.7 mg/dL (8.6-10.8); Carbon Dioxide 27 mEq/L (19-29); Chloride 104 mEq/L (98-109); Globulin 3.5 g/dL (2.4-3.5); Glucose 132 mg/dL (70-99); Magnesium 1.4 mg/dL (1.6-2.6); Osmolality,Calculated 285 (280-300); Phosphorous 2.8 mg/dL (2.3-4.7); Potassium 2.8 mEq/L (3.5-4.5); Sodium 138 mEq/L (136-145); Total Protein 5.2 g/dL (6.0-8.3); eGFR For African Americans > 60 (> 60); eGFR For Non-African Americans > 60 (> 60)
[2017-01-18 04:47] LABS: Albumin 1.7 g/dL (3.5-5.0); Blood Urea Nitrogen 5 mg/dL (7-20)
[2017-01-18] MEDS: Metoclopramide 10 MG/2 ML VIAL IVP SCH ×3 (05:58→17:59)
[2017-01-18] MEDS: *HR* Heparin 5,000 UNIT/ML VIAL SQ SCH ×2 (05:58→18:15)
[2017-01-18] MEDS: Insulin LISPRO 300 UNITS/3 ML VIAL SQ SCH ×3 (06:14→21:16)
[2017-01-18] MEDS ORDERED: Magnesium Sulfate 2 GM in D5% in Water 100 ML IVPB ONE (08:05)
[2017-01-18] MEDS: Potassium Chloride 40 MEQ, Lidocaine 1% 2 ML in D5% in Water 500 ML IVPB SCH ×2 (09:51→17:58)
[2017-01-18] MEDS: MetroNIDAZOLE 500 MG/100 ML 500 MG/100 ML BAG IVPB SCH ×2 (09:56→18:01)
[2017-01-18] MEDS: Pantoprazole 40 MG VIAL IVP SCH (10:00)
[2017-01-18] MEDS: Aspirin 325 MG TABLET GTUBE SCH (10:04)
--- NOTE | 2017-01-18 12:03 | Internal Med Progress Note ---
Date of Encounter: 01/18/17 Time of Encounter: 12:00 - Assessment and plan (1) Acute respiratory failure Current Visit: Yes Status: Acute Assessment and plan: secondary to aspiration PNA continues to require high flow supplemental oxygen Leukocytosis persists but improved from previous day continue Vancomycin and levaquin Pt responding well to ativan therapy Palliative care team consultation appreciated, patient to continue abx therapy as per family's request. 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 Assessment and plan: advanced stage Akron's disease signficant deficit and difficulty with communication appears more comfortable with ativan, will continue (4) DVT prophylaxis Current Visit: Yes Status: Acute Assessment and plan: Heparin SQ (5) HTN (hypertension) Current Visit: Yes Status: Chronic Assessment and plan: BP within acceptable range continue to monitor Qualifiers: Hypertension type: essential hypertension Qualified Code(s): I10 - Essential (primary) hypertension (6) Counseling regarding advanced directives and goals of care Current Visit: Yes Status: Acute Assessment and plan: Palliative care on board and consultation appreciated (7) Anxiety Current Visit: Yes Status: Acute Assessment and plan: continue Ativan prn in addition to continuation of Wellbutrin (8) Thrombocytosis Current Visit: Yes Status: Acute Assessment and plan: likely secondary to underlying infection (9) PEG (percutaneous endoscopic gastrostomy) status Current Visit: Yes Status: Chronic Assessment and plan: s/p PEG tube replacement continue tube feedings - Subjective Interval history: Patient is a 56y/o female with advanced stage Akron's disease who is admitted for acute respiratory failure secondary to aspiration PNA. Patient was transferred from the ICU on 01/16/17 after code status was changed to DNR/DNI and family considering hospice care. Patient seen and examined at bedside. Pt is nonverbal at baseline. Currently resting in bed and doesn't appear to be in any distress. - Constitutional Vitals: Temp Pulse Resp BP Pulse Ox 98.8 F 90 18 112/60 94 01/18/17 07:08 01/18/17 07:08 01/18/17 07:56 01/18/17 07:08 01/18/17 07:56 General appearance: Present: A&O X 0 (contracted, cachetic). Absent: answers questions appropriately - Head Head exam: Present: atraumatic, normocephalic - Eye Eye exam: Present: conjuntiva pink, sclera anicteric - Respiratory Respiratory exam: Absent: respiratory distress, wheezes - Cardiovascular Cardiovascular exam: Present: RRR, +S1, +S2. Absent: diastolic murmur, gallop, rubs, systolic murmur - GI/Abdominal GI/Abdominal exam: Present: normal bowel sounds, soft. Absent: tenderness (PEG tube in place) - Extremities Exam Extremities exam: Present: warm, radial pulses palpable and symetrical. Absent : calf tenderness (contracted upper and lower extremities ) Internal Medicine: Result - Labs CBC & Chem 7: 01/18/17 04:10 01/18/17 04:15 Labs: Short CBC 01/18/17 Range/Units 04:10 WBC 13.8 H (4.3-11.1) K/mcL Hgb 8.2 L (11.5-15.4) g/dL Hct 25.2 L (35.3-44.9) % Plt Count 821 H (140-400) K/mcL Neutrophils # 11.4 H (1.6-8.9) K/mcL BMP 01/18/17 04:15 Sodium 138 Potassium 2.8 L Chloride 104 Carbon Dioxide 27 BUN 5 L Creatinine 0.63 Glucose 132 H Calcium 7.7 L Liver Function 01/18/17 Range/Units 04:15 Total Bilirubin 0.6 (0.2-1.2) mg/dL AST 39 H (5-34) Units/L ALT 34 (0-55) Units/L Alkaline Phosphatase 102 (38-126) Units/L Albumin 1.7 L (3.5-5.0) g/dL - ABG Interpretation ABG results: ABG ABG pH 7.46 pH Units (7.32-7.45) H 01/10/17 04:50 ABG pCO2 42 mmHg (35-45) 01/10/17 04:50 ABG pO2 76 mmHg (85-104) L 01/10/17 04:50 ABG O2 Saturation 96 % (95-98) 01/10/17 04:50 PT/INR, D-dimer PT 14.8 Seconds (9.4-12.1) H 01/09/17 02:37 - Impressions Impressions KUB X-Ray 01/18/17 07:00 IMPRESSION: 1. The tip of the GJ tube is likely within the jejunum. Contrast could be injected to confirm positioning if clinically indicated. D/ / 01/18/2017 08:26:08 James Gomez MD / bcarter Interpreting Provider: James Gomez MD Consult Discharge Plan - Plan Referrals: Mikie Etienne MD [Primary Care Provider] - 01/29/17 11:15 am
[2017-01-18] MEDS: Vancomycin 1,000 MG in D5% in Water 250 ML IVPB SCH (13:31)
--- NOTE | 2017-01-18 13:52 | Palliative Progress Note ---
Date of Encounter: 01/18/17 Time of Encounter: 13:00 - Assessment and plan (1) Constipation Current Visit: Yes Status: Resolved Assessment and plan: Currently feedings at 40ml/hr. No vomiting. Abdomen soft, BS x 4. Patient had BM 01/16 Plan - Case discussed with Nutrition. Add reglan for GI motility. Osmolight 40 ml/hr - Miralax to daily regimen - Monitor I&O Qualifiers: Constipation type: unspecified constipation type Qualified Code(s): K59.00 - Constipation, unspecified (2) Counseling regarding advanced directives and goals of care Current Visit: Yes Status: Acute Assessment and plan: Called daughter Uma #[phone] to give update. Follow-up on previous palliative discussion regarding continued antibiotics and TF feedings. I explained that patients WBC improved today. Explained that patient is still on 12L high flow O2 with sats at 94%. Explained that mother is tolerating TF without vomiting. I offered sympathy and verbalized that this is a very difficult decision and that the care team is here for her. Uma is unable to visit at this time and would like to do phone conferences as needed. Followed up on Hospice care and discussed philosophy and goals of comfort. Uam to consider transition. Uma is reluctant to change care. She still desires antibiotics and medications. I explained grave outcome of her disease and encouraged her to visit and see patient for herself. She did not visit yesterday as she has excuses to why. I explained that she needs Hospice care. Carlton states she will think it over. Continue feedings and antibiotics for now. Plan is have patient return home in the care of Uma. 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 Currently resides at home in the care of her daughter Uma. Patient admitted with aspiration pneumonia and is currently on 12L high flow with sats at 88% - 94%. Patient is alert, eyes open and smiles at name being said. Patient with chorea to all extremities. Feedings infusing. Abdomen soft, BS x 4. Patient with BMs. GJ tube intact. - Constitutional Vitals: Abnormal lab results WBC 13.8 K/mcL (4.3-11.1) H 01/18/17 04:10 RBC 2.72 M/mcL (3.82-4.97) L 01/18/17 04:10 Hgb 8.2 g/dL (11.5-15.4) L 01/18/17 04:10 Hct 25.2 % (35.3-44.9) L 01/18/17 04:10 RDW 15.5 % (11.5-14.5) H 01/18/17 04:10 Plt Count 821 K/mcL (140-400) H 01/18/17 04:10 Neutrophils # 11.4 K/mcL (1.6-8.9) H 01/18/17 04:10 Nucleated RBCs/100 WBC 0.1 /100 WBC (0) H 01/12/17 05:29 Smudge Cells Present (Not Present) A 01/10/17 05:10 Toxic Granulation Present (Not Present) A 01/09/17 01:02 Dohle Bodies Present (Not Present) A 01/09/17 01:02 Platelet Estimate Marked Increase (Normal) H 01/17/17 04:55 PT 14.8 Seconds (9.4-12.1) H 01/09/17 02:37 APTT 69.5 Seconds (26.0-36.0) H D 01/10/17 18:20 ABG pH 7.46 pH Units (7.32-7.45) H 01/10/17 04:50 ABG pO2 76 mmHg (85-104) L 01/10/17 04:50 ABG HCO3 29.9 mEQ/L (21-27) H 01/10/17 04:50 ABG Total CO2 31.2 mEq/L (20-26) H 01/10/17 04:50 ABG Base Excess 5.5 mEq/L (-2.0 to 3.0) H 01/10/17 04:50 VBG pH 7.43 pH Units (7.32-7.42) H 01/07/17 14:46 VBG HCO3 30.5 mEq/L (21-27) H 01/07/17 14:46 Potassium 2.8 mEq/L (3.5-4.5) L 01/18/17 04:15 BUN 5 mg/dL (7-20) L 01/18/17 04:15 Glucose 132 mg/dL (70-99) H 01/18/17 04:15 POC Glucose 92 (58-89) H 01/17/17 22:34 Calcium 7.7 mg/dL (8.6-10.8) L 01/18/17 04:15 Magnesium 1.4 mg/dL (1.6-2.6) L 01/18/17 04:15 AST 39 Units/L (5-34) H 01/18/17 04:15 Creatine Kinase 220 U/L (20-180) H 01/09/17 02:37 Troponin I 2.47 ng/mL (0-0.03) H* 01/09/17 07:12 C-Reactive Protein 315 mg/L (Less than 5) H 01/07/17 20:59 B-Natriuretic Peptide 773 pg/mL (0-100) H 01/09/17 02:37 Serum Total Protein 5.2 g/dL (6.0-8.3) L 01/18/17 04:15 Prealbumin 4.0 mg/dL (16.0-38.0) L 01/08/17 09:18 Albumin 1.7 g/dL (3.5-5.0) L 01/18/17 04:15 Albumin/Globulin Ratio 0.5 (1.1-2.2) L 01/18/17 04:15 Urine Clarity Cloudy (Clear) A 01/07/17 15:55 Urine Protein 30 mg/dL (Neg-Trace) H 01/07/17 15:55 Urine Blood Small (Negative) H 01/07/17 15:55 Urine Bilirubin Small (Negative) H 01/07/17 15:55 Ur Leukocyte Esterase Small (Negative) H 01/07/17 15:55 Urine Microscopic RBC 15-30 per hpf (0-3) H 01/07/17 15:55 Urine Microscopic WBC 15-30 per hpf (0-3) H 01/07/17 15:55 Ur Squamous Epith Cells Many per lpf (None-Few) H 01/07/17 15:55 Hyaline Casts Moderate per lpf (None-Few) H 01/07/17 15:55 Ur Culture Indicated? YES (NO) A 01/07/17 15:55 - Head Head exam: Present: atraumatic, normal inspection, normocephalic - Eye Eye exam: Present: PERRL Pupils: Present: PERRL - ENT ENT exam: Present: mucous membranes moist - Neck Neck exam: Present: full ROM - Respiratory Respiratory exam: Present: CTAB - Cardiovascular Cardiovascular exam: Present: RRR, +S1, +S2 - GI/Abdominal GI/Abdominal exam: Present: normal bowel sounds, soft - External exam: Present: normal external exam (Pitts draining clear yellow urine) - Extremities Exam Extremities exam: Present: normal inspection (Chorea to all extremities) - Neurological Exam Neurological exam: Present: alert (nonverbal, Hamilton's dx) - Psychiatric Psychiatric exam: Present: flat affect - Skin Skin exam: Present: pallor, warm Palliative Quality Palliative Quality: Screen for Code Status: Yes, Screen for Goals of Care: Yes, Screen for Pain: NA, If Pain Regimen Started, Initiate Bowel Regimen: NA, Screen for Nausea/Vomitting: NA Code Status: 01/14/17 10:59 CODE [Resuscitation Status: Active] [RES] Routine Comment: Verified with daughter Uma Brewer 10:53 01/14 Resuscitation Status: [id number] - Labs CBC & Chem 7: 01/18/17 04:10 01/18/17 04:15 Labs: Laboratory Results - last 24 hr 01/16/17 01/16/17 01/16/17 19:35 20:57 23:51 WBC RBC Hgb Hct MCV MCH MCHC RDW Plt Count MPV Immature Gran % Seg Neutrophils % Lymphocytes % Monocytes % Eosinophils % Basophils % Neutrophils # Lymphocytes # Monocytes # Eosinophils # Basophils # Sodium Potassium Chloride Carbon Dioxide BUN Creatinine Est GFR ( Amer) Est GFR (Non-Af Amer) BUN/Creatinine Ratio Glucose POC Glucose 69 70 72 Calculated Osmolality Calcium Phosphorus Magnesium Total Bilirubin AST ALT Alkaline Phosphatase Serum Total Protein Albumin Globulin Albumin/Globulin Ratio 01/17/17 01/17/17 01/17/17 02:30 05:49 08:09 WBC RBC Hgb Hct MCV MCH MCHC RDW Plt Count MPV Immature Gran % Seg Neutrophils % Lymphocytes % Monocytes % Eosinophils % Basophils % Neutrophils # Lymphocytes # Monocytes # Eosinophils # Basophils # Sodium Potassium Chloride Carbon Dioxide BUN Creatinine Est GFR ( Amer) Est GFR (Non-Af Amer) BUN/Creatinine Ratio Glucose POC Glucose 68 66 102 H Calculated Osmolality Calcium Phosphorus Magnesium Total Bilirubin AST ALT Alkaline Phosphatase Serum Total Protein Albumin Globulin Albumin/Globulin Ratio 01/17/17 01/17/17 01/17/17 11:54 17:27 20:39 WBC RBC Hgb Hct MCV MCH MCHC RDW Plt Count MPV Immature Gran % Seg Neutrophils % Lymphocytes % Monocytes % Eosinophils % Basophils % Neutrophils # Lymphocytes # Monocytes # Eosinophils # Basophils # Sodium Potassium Chloride Carbon Dioxide BUN Creatinine Est GFR ( Amer) Est GFR (Non-Af Amer) BUN/Creatinine Ratio Glucose POC Glucose 116 H 120 H 107 H Calculated Osmolality Calcium Phosphorus Magnesium Total Bilirubin AST ALT Alkaline Phosphatase Serum Total Protein Albumin Globulin Albumin/Globulin Ratio 01/17/17 01/18/17 01/18/17 22:34 04:10 04:15 WBC 13.8 H RBC 2.72 L Hgb 8.2 L Hct 25.2 L MCV 92.6 MCH 30.1 MCHC 32.5 RDW 15.5 H Plt Count 821 H MPV 9.6 Immature Gran % 0.4 Seg Neutrophils % 82.9 Lymphocytes % 6.8 Monocytes % 9.0 Eosinophils % 0.7 Basophils % 0.2 Neutrophils # 11.4 H Lymphocytes # 0.9 Monocytes # 1.2 Eosinophils # 0.1 Basophils # 0.0 Sodium 138 Potassium 2.8 L Chloride 104 Carbon Dioxide 27 BUN 5 L Creatinine 0.63 Est GFR ( Amer) > 60 Est GFR (Non-Af Amer) > 60 BUN/Creatinine Ratio 8 Glucose 132 H POC Glucose 92 H Calculated Osmolality 285 Calcium 7.7 L Phosphorus 2.8 Magnesium 1.4 L Total Bilirubin 0.6 AST 39 H ALT 34 Alkaline Phosphatase 102 Serum Total Protein 5.2 L Albumin 1.7 L Globulin 3.5 Albumin/Globulin Ratio 0.5 L - Impressions Impressions KUB X-Ray 01/18/17 07:00 IMPRESSION: 1. The tip of the GJ tube is likely within the jejunum. Contrast could be injected to confirm positioning if clinically indicated. D/ / 01/18/2017 08:26:08 James Gomez MD / bcarter Interpreting Provider: James Gomez MD - ABG Interpretation ABG results: ABG ABG pH 7.46 pH Units (7.32-7.45) H 01/10/17 04:50 ABG pCO2 42 mmHg (35-45) 01/10/17 04:50 ABG pO2 76 mmHg (85-104) L 01/10/17 04:50 ABG O2 Saturation 96 % (95-98) 01/10/17 04:50 PT/INR, D-dimer PT 14.8 Seconds (9.4-12.1) H 01/09/17 02:37 Consult Discharge Plan - Plan Referrals: Mikie Etienne MD [Primary Care Provider] - 01/29/17 11:15 am
[2017-01-18] MEDS: Levofloxacin 500 MG/100 ML 500 MG/100 ML BAG IVPB SCH (18:04)
[2017-01-19] MEDS: Insulin LISPRO 300 UNITS/3 ML VIAL SQ SCH ×4 (01:59→22:08)
[2017-01-19] MEDS: Metoclopramide 10 MG/2 ML VIAL IVP SCH ×4 (01:59→17:02)
[2017-01-19] MEDS: MetroNIDAZOLE 500 MG/100 ML 500 MG/100 ML BAG IVPB SCH ×3 (01:59→17:01)
[2017-01-19] MEDS: Vancomycin 1,000 MG in D5% in Water 250 ML IVPB SCH ×2 (02:00→14:24)
[2017-01-19] MEDS: *HR* Morphine 2 MG/ML SYRINGE IVP PRN (02:11)
[2017-01-19 03:57] LABS: Basophils % 0.1 %; Eosinophils # 0.2 K/mcL (0.0-0.6); Eosinophils % 1.8 %; Hematocrit 26.3 % (35.3-44.9); Hemoglobin 8.4 g/dL (11.5-15.4); Immature Granulocytes % 0.4 % (0-4); Lymphocytes # 1.1 K/mcL (0.6-4.6); Lymphocytes % 9.8 %; Mean Corpuscular HGB Conc 31.9 g/dL (31.6-35.5); Mean Corpuscular Hemoglobin 30.2 pg (28.0-33.3); Mean Corpuscular Volume 94.6 fL (83.0-100.0); Mean Platelet Volume 9.6 fL (9.4-12.4); Monocytes % 9.1 %; Neutrophils # 8.8 K/mcL (1.6-8.9); Platelet Count 780 K/mcL (140-400); Red Blood Count 2.78 M/mcL (3.82-4.97); Red Cell Distribution Width 15.8 % (11.5-14.5); Segmented Neutrophils % 78.8 %
[2017-01-19 04:19] LABS: Alanine Aminotransferase 33 Units/L (0-55); Albumin/Globulin Ratio 0.5 (1.1-2.2); Alkaline Phosphatase 103 Units/L (38-126); Aspartate Amino Transferase 35 Units/L (5-34); BUN/Creatinine Ratio 9 (6-26); Bilirubin,Total 0.5 mg/dL (0.2-1.2); Blood Urea Nitrogen 6 mg/dL (7-20); Calcium 7.8 mg/dL (8.6-10.8); Carbon Dioxide 28 mEq/L (19-29); Chloride 106 mEq/L (98-109); Globulin 3.6 g/dL (2.4-3.5); Glucose 136 mg/dL (70-99); Magnesium 1.5 mg/dL (1.6-2.6); Osmolality,Calculated 286 (280-300); Phosphorous 3.3 mg/dL (2.3-4.7); Potassium 3.3 mEq/L (3.5-4.5); Sodium 138 mEq/L (136-145); Total Protein 5.4 g/dL (6.0-8.3); eGFR For African Americans > 60 (> 60); eGFR For Non-African Americans > 60 (> 60)
[2017-01-19 04:20] LABS: Albumin 1.8 g/dL (3.5-5.0)
[2017-01-19] MEDS: Ipratropium/Albuterol Neb 3 ML IH SCH ×6 (04:52→23:21)
[2017-01-19] MEDS: *HR* Heparin 5,000 UNIT/ML VIAL SQ SCH ×2 (05:13→17:09)
[2017-01-19] MEDS ORDERED: Magnesium Sulfate 1 GM in D5% in Water 100 ML IVPB ONE (07:58)
[2017-01-19] MEDS ORDERED: Potassium Chloride 40 MEQ, Lidocaine 1% 2 ML in D5% in Water 500 ML IVPB ONE (07:58)
--- NOTE | 2017-01-19 09:30 | Internal Med Progress Note ---
Date of Encounter: 01/19/17 Time of Encounter: 09:28 - Assessment and plan (1) Acute respiratory failure Current Visit: Yes Status: Acute Assessment and plan: secondary to aspiration PNA continues to require high flow supplemental oxygen Leukocytosis persists but improved from previous day continue Vancomycin and levaquin. Pharmacy to dose vancomycin and monitor trough Pt responding well to ativan therapy Palliative care team consultation appreciated, patient to continue abx therapy as per family's request. 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 Assessment and plan: advanced stage Moore's disease signficant deficit and difficulty with communication appears more comfortable with ativan, will continue (4) DVT prophylaxis Current Visit: Yes Status: Acute Assessment and plan: Heparin SQ (5) HTN (hypertension) Current Visit: Yes Status: Chronic Assessment and plan: BP within acceptable range continue to monitor Qualifiers: Hypertension type: essential hypertension Qualified Code(s): I10 - Essential (primary) hypertension (6) Counseling regarding advanced directives and goals of care Current Visit: Yes Status: Acute Assessment and plan: Palliative care on board and consultation appreciated (7) Anxiety Current Visit: Yes Status: Acute Assessment and plan: continue Ativan prn in addition to continuation of Wellbutrin (8) Thrombocytosis Current Visit: Yes Status: Acute Assessment and plan: likely secondary to underlying infection (9) PEG (percutaneous endoscopic gastrostomy) status Current Visit: Yes Status: Chronic Assessment and plan: s/p PEG tube replacement continue tube feedings maintain aspiration precautions (10) Electrolyte abnormality Current Visit: Yes Status: Acute Assessment and plan: Hypokalemia K supplemented continue to monitor electrolytes and replace as needed - Subjective Interval history: Patient is a 56y/o female with advanced stage Moore's disease who is admitted for acute respiratory failure secondary to aspiration PNA. Patient was transferred from the ICU on 01/16/17 after code status was changed to DNR/DNI and family considering hospice care. Patient seen and examined at bedside. Pt is nonverbal at baseline. Currently resting in bed and doesn't appear to be in any distress. Palliative care team has been closely following the patient and discussing with the family patient's grave prognosis and need to be switched to hospice care. Patient's family has refused to come to the hospital and continues to demand that aggressive care continues. Patient's daughter has been told that the patient is continuously requiring high flow oxygen and has severe disease and she should be seen by her family. Patient's daughter asked the palliative care team to follow up with her over the phone and she will think about hospice care. - Constitutional Vitals: Temp Pulse Resp BP Pulse Ox 99.1 F 95 18 111/56 98 01/19/17 07:25 01/19/17 07:25 01/19/17 08:08 01/19/17 07:25 01/19/17 08:08 General appearance: Present: A&O X 0 (contracted, cachetic) - Head Head exam: Present: atraumatic, normocephalic - Eye Eye exam: Present: conjuntiva pink, sclera anicteric - Respiratory Respiratory exam: Absent: rales, respiratory distress, wheezes - Cardiovascular Cardiovascular exam: Present: RRR, +S1, +S2 - GI/Abdominal GI/Abdominal exam: Present: normal bowel sounds, soft. Absent: tenderness - Extremities Exam Extremities exam: Present: warm (contracted bilateral upper and lower extremities). Absent: tenderness - Neurological Exam Neurological exam: Present: alert Internal Medicine: Result - Labs CBC & Chem 7: 01/19/17 03:30 01/19/17 03:30 Labs: Short CBC 01/19/17 Range/Units 03:30 WBC 11.2 H (4.3-11.1) K/mcL Hgb 8.4 L (11.5-15.4) g/dL Hct 26.3 L (35.3-44.9) % Plt Count 780 H (140-400) K/mcL Neutrophils # 8.8 (1.6-8.9) K/mcL BMP 01/19/17 03:30 Sodium 138 Potassium 3.3 L Chloride 106 Carbon Dioxide 28 BUN 6 L Creatinine 0.65 Glucose 136 H Calcium 7.8 L Liver Function 01/19/17 Range/Units 03:30 Total Bilirubin 0.5 (0.2-1.2) mg/dL AST 35 H (5-34) Units/L ALT 33 (0-55) Units/L Alkaline Phosphatase 103 (38-126) Units/L Albumin 1.8 L (3.5-5.0) g/dL - ABG Interpretation ABG results: ABG ABG pH 7.46 pH Units (7.32-7.45) H 01/10/17 04:50 ABG pCO2 42 mmHg (35-45) 01/10/17 04:50 ABG pO2 76 mmHg (85-104) L 01/10/17 04:50 ABG O2 Saturation 96 % (95-98) 01/10/17 04:50 PT/INR, D-dimer PT 14.8 Seconds (9.4-12.1) H 01/09/17 02:37 - Impressions Impressions KUB X-Ray 01/18/17 07:00 IMPRESSION: 1. The tip of the GJ tube is likely within the jejunum. Contrast could be injected to confirm positioning if clinically indicated. D/ / 01/18/2017 08:26:08 James Gomez MD / bcarter Interpreting Provider: James Gomez MD X-Ray 01/19/17 07:00 IMPRESSION: Percutaneous jejunostomy tube tip projects over the left midline pelvis and is likely within the jejunum. D/ / 01/19/2017 08:23:55 Estefanía Goins MD / yaritza Interpreting Provider: Estefanía Goins MD Consult Discharge Plan - Plan Referrals: Mikie Etienne MD [Primary Care Provider] - 01/29/17 11:15 am
--- NOTE | 2017-01-19 09:31 | Palliative Progress Note ---
Date of Encounter: 01/19/17 Time of Encounter: 09:20 - Assessment and plan (1) Generalized pain Current Visit: Yes Status: Acute Assessment and plan: Continue with low dose IV Morphine. Utilized x1 last 24 hours. Transition to liquid per tube PRN. (2) Constipation Current Visit: Yes Status: Resolved Assessment and plan: + BM 01/18 and 01/19. Continue daily Miralax per tube Qualifiers: Qualified Code(s): K59.00 - Constipation, unspecified (3) Anxiety Current Visit: Yes Status: Acute Assessment and plan: Continue on low dose Ativan which appears to help her with movements and anxiety. Will D/C IV and have available per GJ tube (4) Counseling regarding advanced directives and goals of care Current Visit: Yes Status: Acute Assessment and plan: Conversation with daughter yesterday reviewed. Will attempt to contact her today to discuss plan. She has been very hesitant to transition to hospice care thus far. 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 Oxygen needs remain high at 12L. Smiles but no attempt to communicate. Tube feeding at goal and appears to be tolerating well. Reviewed IR note - some concern for migration of GJ tube but f /u KUB have been stable. No family present - Constitutional Vitals: Abnormal lab results WBC 11.2 K/mcL (4.3-11.1) H 01/19/17 03:30 RBC 2.78 M/mcL (3.82-4.97) L 01/19/17 03:30 Hgb 8.4 g/dL (11.5-15.4) L 01/19/17 03:30 Hct 26.3 % (35.3-44.9) L 01/19/17 03:30 RDW 15.8 % (11.5-14.5) H 01/19/17 03:30 Plt Count 780 K/mcL (140-400) H 01/19/17 03:30 Nucleated RBCs/100 WBC 0.1 /100 WBC (0) H 01/12/17 05:29 Smudge Cells Present (Not Present) A 01/10/17 05:10 Toxic Granulation Present (Not Present) A 01/09/17 01:02 Dohle Bodies Present (Not Present) A 01/09/17 01:02 Platelet Estimate Marked Increase (Normal) H 01/17/17 04:55 PT 14.8 Seconds (9.4-12.1) H 01/09/17 02:37 APTT 69.5 Seconds (26.0-36.0) H D 01/10/17 18:20 ABG pH 7.46 pH Units (7.32-7.45) H 01/10/17 04:50 ABG pO2 76 mmHg (85-104) L 01/10/17 04:50 ABG HCO3 29.9 mEQ/L (21-27) H 01/10/17 04:50 ABG Total CO2 31.2 mEq/L (20-26) H 01/10/17 04:50 ABG Base Excess 5.5 mEq/L (-2.0 to 3.0) H 01/10/17 04:50 VBG pH 7.43 pH Units (7.32-7.42) H 01/07/17 14:46 VBG HCO3 30.5 mEq/L (21-27) H 01/07/17 14:46 Potassium 3.3 mEq/L (3.5-4.5) L 01/19/17 03:30 BUN 6 mg/dL (7-20) L 01/19/17 03:30 Glucose 136 mg/dL (70-99) H 01/19/17 03:30 POC Glucose 128 (58-89) H 01/19/17 04:07 Calcium 7.8 mg/dL (8.6-10.8) L 01/19/17 03:30 Magnesium 1.5 mg/dL (1.6-2.6) L 01/19/17 03:30 AST 35 Units/L (5-34) H 01/19/17 03:30 Creatine Kinase 220 U/L (20-180) H 01/09/17 02:37 Troponin I 2.47 ng/mL (0-0.03) H* 01/09/17 07:12 C-Reactive Protein 315 mg/L (Less than 5) H 01/07/17 20:59 B-Natriuretic Peptide 773 pg/mL (0-100) H 01/09/17 02:37 Serum Total Protein 5.4 g/dL (6.0-8.3) L 01/19/17 03:30 Prealbumin 4.0 mg/dL (16.0-38.0) L 01/08/17 09:18 Albumin 1.8 g/dL (3.5-5.0) L 01/19/17 03:30 Globulin 3.6 g/dL (2.4-3.5) H 01/19/17 03:30 Albumin/Globulin Ratio 0.5 (1.1-2.2) L 01/19/17 03:30 Urine Clarity Cloudy (Clear) A 01/07/17 15:55 Urine Protein 30 mg/dL (Neg-Trace) H 01/07/17 15:55 Urine Blood Small (Negative) H 01/07/17 15:55 Urine Bilirubin Small (Negative) H 01/07/17 15:55 Ur Leukocyte Esterase Small (Negative) H 01/07/17 15:55 Urine Microscopic RBC 15-30 per hpf (0-3) H 01/07/17 15:55 Urine Microscopic WBC 15-30 per hpf (0-3) H 01/07/17 15:55 Ur Squamous Epith Cells Many per lpf (None-Few) H 01/07/17 15:55 Hyaline Casts Moderate per lpf (None-Few) H 01/07/17 15:55 Ur Culture Indicated? YES (NO) A 01/07/17 15:55 General appearance: Present: no acute distress - Respiratory Additional comments: O2 sat 94% currently. Lungs fairly clear with occasional rhonchi noted - much improved from last Thursday when I last saw her. - Cardiovascular Cardiovascular exam: Present: +S1, +S2 - GI/Abdominal GI/Abdominal exam: Present: normal bowel sounds, soft Additional comments: Feeding tube intact - Extremities Exam Extremities exam: Present: normal capillary refill, normal inspection Additional comments: Contractures of lower extremities noted - Neurological Exam Neurological exam: Present: alert Additional comments: Does not verbalize or follow commands - Skin Skin exam: Present: dry, pallor, warm Palliative Quality Palliative Quality: Screen for Code Status: Yes, Screen for Goals of Care: Yes, Screen for Pain: NA, If Pain Regimen Started, Initiate Bowel Regimen: NA, Screen for Nausea/Vomitting: NA Code Status: 01/14/17 10:59 CODE [Resuscitation Status: Active] [RES] Routine Comment: Verified with daughter Uma Brewer 10:53 01/14 Resuscitation Status: [id number] - Labs CBC & Chem 7: 01/19/17 03:30 01/19/17 03:30 Labs: Laboratory Results - last 24 hr 01/18/17 01/18/17 01/18/17 05:42 12:05 19:23 WBC RBC Hgb Hct MCV MCH MCHC RDW Plt Count MPV Immature Gran % Seg Neutrophils % Lymphocytes % Monocytes % Eosinophils % Basophils % Neutrophils # Lymphocytes # Monocytes # Eosinophils # Basophils # Sodium Potassium Chloride Carbon Dioxide BUN Creatinine Est GFR ( Amer) Est GFR (Non-Af Amer) BUN/Creatinine Ratio Glucose POC Glucose 120 H 161 H 138 H Calculated Osmolality Calcium Phosphorus Magnesium Total Bilirubin AST ALT Alkaline Phosphatase Serum Total Protein Albumin Globulin Albumin/Globulin Ratio 01/18/17 01/19/17 01/19/17 23:36 03:30 03:30 WBC 11.2 H RBC 2.78 L Hgb 8.4 L Hct 26.3 L MCV 94.6 MCH 30.2 MCHC 31.9 RDW 15.8 H Plt Count 780 H MPV 9.6 Immature Gran % 0.4 Seg Neutrophils % 78.8 Lymphocytes % 9.8 Monocytes % 9.1 Eosinophils % 1.8 Basophils % 0.1 Neutrophils # 8.8 Lymphocytes # 1.1 Monocytes # 1.0 Eosinophils # 0.2 Basophils # 0.0 Sodium 138 Potassium 3.3 L Chloride 106 Carbon Dioxide 28 BUN 6 L Creatinine 0.65 Est GFR ( Amer) > 60 Est GFR (Non-Af Amer) > 60 BUN/Creatinine Ratio 9 Glucose 136 H POC Glucose 108 H Calculated Osmolality 286 Calcium 7.8 L Phosphorus 3.3 Magnesium 1.5 L Total Bilirubin 0.5 AST 35 H ALT 33 Alkaline Phosphatase 103 Serum Total Protein 5.4 L Albumin 1.8 L Globulin 3.6 H Albumin/Globulin Ratio 0.5 L 01/19/17 04:07 WBC RBC Hgb Hct MCV MCH MCHC RDW Plt Count MPV Immature Gran % Seg Neutrophils % Lymphocytes % Monocytes % Eosinophils % Basophils % Neutrophils # Lymphocytes # Monocytes # Eosinophils # Basophils # Sodium Potassium Chloride Carbon Dioxide BUN Creatinine Est GFR ( Amer) Est GFR (Non-Af Amer) BUN/Creatinine Ratio Glucose POC Glucose 128 H Calculated Osmolality Calcium Phosphorus Magnesium Total Bilirubin AST ALT Alkaline Phosphatase Serum Total Protein Albumin Globulin Albumin/Globulin Ratio - Impressions Impressions KUB X-Ray 01/18/17 07:00 IMPRESSION: 1. The tip of the GJ tube is likely within the jejunum. Contrast could be injected to confirm positioning if clinically indicated. D/ / 01/18/2017 08:26:08 James Gomez MD / bcarter Interpreting Provider: James Gomez MD X-Ray 01/19/17 07:00 IMPRESSION: Percutaneous jejunostomy tube tip projects over the left midline pelvis and is likely within the jejunum. D/ / 01/19/2017 08:23:55 Estefanía Goins MD / eberry Interpreting Provider: Estefanía Goins MD - ABG Interpretation ABG results: ABG ABG pH 7.46 pH Units (7.32-7.45) H 01/10/17 04:50 ABG pCO2 42 mmHg (35-45) 01/10/17 04:50 ABG pO2 76 mmHg (85-104) L 01/10/17 04:50 ABG O2 Saturation 96 % (95-98) 01/10/17 04:50 PT/INR, D-dimer PT 14.8 Seconds (9.4-12.1) H 01/09/17 02:37 Consult Discharge Plan - Plan Referrals: Mikie Etienne MD [Primary Care Provider] - 01/29/17 11:15 am
[2017-01-19] MEDS ORDERED: *HR* LORazepam 0.5 MG TABLET GTUBE PRN (09:38)
[2017-01-19] MEDS ORDERED: *HR* OxyCODONE Immed Rel 5 MG TABLET GTUBE PRN (09:39)
[2017-01-19] MEDS: Pantoprazole 40 MG VIAL IVP SCH (09:46)
[2017-01-19] MEDS: Aspirin 325 MG TABLET GTUBE SCH (09:47)
[2017-01-19] MEDS: Levofloxacin 500 MG/100 ML 500 MG/100 ML BAG IVPB SCH (17:00)
[2017-01-20] MEDS: MetroNIDAZOLE 500 MG/100 ML 500 MG/100 ML BAG IVPB SCH ×3 (00:37→16:59)
[2017-01-20] MEDS: Vancomycin 1,000 MG in D5% in Water 250 ML IVPB SCH ×2 (00:38→12:42)
[2017-01-20] MEDS: Metoclopramide 10 MG/2 ML VIAL IVP SCH ×4 (00:39→17:00)
[2017-01-20] MEDS: Insulin LISPRO 300 UNITS/3 ML VIAL SQ SCH ×4 (00:39→18:10)
[2017-01-20] MEDS: Ipratropium/Albuterol Neb 3 ML IH SCH ×5 (04:32→20:40)
[2017-01-20 05:01] LABS: Basophils % 0.4 %; Eosinophils # 0.4 K/mcL (0.0-0.6); Eosinophils % 3.7 %; Hematocrit 29.4 % (35.3-44.9); Hemoglobin 9.4 g/dL (11.5-15.4); Immature Granulocytes % 0.3 % (0-4); Lymphocytes # 1.4 K/mcL (0.6-4.6); Lymphocytes % 13.1 %; Mean Corpuscular Hemoglobin 30.6 pg (28.0-33.3); Mean Corpuscular Volume 95.8 fL (83.0-100.0); Mean Platelet Volume 10.1 fL (9.4-12.4); Monocytes # 1.1 K/mcL (0.0-1.3); Monocytes % 9.9 %; Platelet Count 809 K/mcL (140-400); Red Blood Count 3.07 M/mcL (3.82-4.97); Segmented Neutrophils % 72.6 %
[2017-01-20] MEDS: *HR* Heparin 5,000 UNIT/ML VIAL SQ SCH ×2 (05:19→16:59)
[2017-01-20 05:23] LABS: BUN/Creatinine Ratio 12 (6-26); Blood Urea Nitrogen 7 mg/dL (7-20); Calcium 8.2 mg/dL (8.6-10.8); Carbon Dioxide 27 mEq/L (19-29); Chloride 108 mEq/L (98-109); Glucose 124 mg/dL (70-99); Magnesium 1.5 mg/dL (1.6-2.6); Osmolality,Calculated 289 (280-300); Phosphorous 3.7 mg/dL (2.3-4.7); Potassium 3.8 mEq/L (3.5-4.5); Sodium 140 mEq/L (136-145); eGFR For African Americans > 60 (> 60); eGFR For Non-African Americans > 60 (> 60)
[2017-01-20] MEDS: Pantoprazole 40 MG VIAL IVP SCH (09:41)
[2017-01-20] MEDS: Aspirin 325 MG TABLET GTUBE SCH (09:42)
--- NOTE | 2017-01-20 10:10 | Palliative Progress Note ---
Date of Encounter: 01/20/17 Time of Encounter: 10:00 - Assessment and plan (1) Generalized pain Current Visit: Yes Status: Acute Assessment and plan: IV Morphine was discontinued yesterday and transitioned to Oxycodone. Patient has not utilized anything for pain the last 24 hours. She appears very comfortable (2) Constipation Current Visit: Yes Status: Resolved Assessment and plan: + BM daily now. Continue Miralax Qualifiers: Constipation type: unspecified constipation type Qualified Code(s): K59.00 - Constipation, unspecified (3) Anxiety Current Visit: Yes Status: Acute Assessment and plan: Continue low dose Lorazepam if needed, this was transitioned from IV to tablet per feeding tube yesterday, but she has not required the last 24 hours (4) Counseling regarding advanced directives and goals of care Current Visit: Yes Status: Acute Assessment and plan: Palliative team has made MULTIPLE attempts over the past 10 days to meet with daughter. She usually does not answer phone, and rarely returns our calls. Icer Hand Tang Agustin did reach her yesterday am, and she stated she was getting ready to come to hospital and would meet with us, however, she never arrived. She did not answer or return calls later throughout the afternoon. According to staff, she called the unit at midnight last night to check on her. Tang will try and reach daughter again this am to determine if she desires hospice care, or wants to return with her previous home health. Daughter has been resistant to conversations, so I seriously doubt that she will desire hospice. Regardless, pt will need DME setup with oxygen/nebulizer/oral suction/ feedings and pump. Currently at 10L - spoke with primary nurse Bill regarding attempting to wean oxygen down slowly. 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 Oxygen currently at 10L. Smiles but no attempt to communicate. Tube feeding at goal and appears to be tolerating well. No family present - Constitutional Vitals: Abnormal lab results RBC 3.07 M/mcL (3.82-4.97) L 01/20/17 04:27 Hgb 9.4 g/dL (11.5-15.4) L 01/20/17 04:27 Hct 29.4 % (35.3-44.9) L 01/20/17 04:27 RDW 16.0 % (11.5-14.5) H 01/20/17 04:27 Plt Count 809 K/mcL (140-400) H 01/20/17 04:27 Nucleated RBCs/100 WBC 0.1 /100 WBC (0) H 01/12/17 05:29 Smudge Cells Present (Not Present) A 01/10/17 05:10 Toxic Granulation Present (Not Present) A 01/09/17 01:02 Dohle Bodies Present (Not Present) A 01/09/17 01:02 Platelet Estimate Marked Increase (Normal) H 01/17/17 04:55 PT 14.8 Seconds (9.4-12.1) H 01/09/17 02:37 APTT 69.5 Seconds (26.0-36.0) H D 01/10/17 18:20 ABG pH 7.46 pH Units (7.32-7.45) H 01/10/17 04:50 ABG pO2 76 mmHg (85-104) L 01/10/17 04:50 ABG HCO3 29.9 mEQ/L (21-27) H 01/10/17 04:50 ABG Total CO2 31.2 mEq/L (20-26) H 01/10/17 04:50 ABG Base Excess 5.5 mEq/L (-2.0 to 3.0) H 01/10/17 04:50 VBG pH 7.43 pH Units (7.32-7.42) H 01/07/17 14:46 VBG HCO3 30.5 mEq/L (21-27) H 01/07/17 14:46 Glucose 124 mg/dL (70-99) H 01/20/17 04:27 POC Glucose 103 (58-89) H 01/19/17 23:51 Calcium 8.2 mg/dL (8.6-10.8) L 01/20/17 04:27 Magnesium 1.5 mg/dL (1.6-2.6) L 01/20/17 04:27 AST 35 Units/L (5-34) H 01/19/17 03:30 Creatine Kinase 220 U/L (20-180) H 01/09/17 02:37 Troponin I 2.47 ng/mL (0-0.03) H* 01/09/17 07:12 C-Reactive Protein 315 mg/L (Less than 5) H 01/07/17 20:59 B-Natriuretic Peptide 773 pg/mL (0-100) H 01/09/17 02:37 Serum Total Protein 5.4 g/dL (6.0-8.3) L 01/19/17 03:30 Prealbumin 4.0 mg/dL (16.0-38.0) L 01/08/17 09:18 Albumin 1.8 g/dL (3.5-5.0) L 01/19/17 03:30 Globulin 3.6 g/dL (2.4-3.5) H 01/19/17 03:30 Albumin/Globulin Ratio 0.5 (1.1-2.2) L 01/19/17 03:30 Urine Clarity Cloudy (Clear) A 01/07/17 15:55 Urine Protein 30 mg/dL (Neg-Trace) H 01/07/17 15:55 Urine Blood Small (Negative) H 01/07/17 15:55 Urine Bilirubin Small (Negative) H 01/07/17 15:55 Ur Leukocyte Esterase Small (Negative) H 01/07/17 15:55 Urine Microscopic RBC 15-30 per hpf (0-3) H 01/07/17 15:55 Urine Microscopic WBC 15-30 per hpf (0-3) H 01/07/17 15:55 Ur Squamous Epith Cells Many per lpf (None-Few) H 01/07/17 15:55 Hyaline Casts Moderate per lpf (None-Few) H 01/07/17 15:55 Ur Culture Indicated? YES (NO) A 01/07/17 15:55 General appearance: Present: no acute distress - Respiratory Respiratory exam: Present: CTAB - Cardiovascular Cardiovascular exam: Present: +S1, +S2 - GI/Abdominal GI/Abdominal exam: Present: normal bowel sounds, soft Additional comments: GJ tube intact with feedings - Extremities Exam Extremities exam: Present: normal capillary refill, normal inspection - Neurological Exam Additional comments: Eyes open, smiles. Does not verbalize or follow commands. Chorea movements continue - Skin Skin exam: Present: dry, pallor, warm Palliative Quality Palliative Quality: Screen for Code Status: Yes, Screen for Goals of Care: Yes, Screen for Pain: NA, If Pain Regimen Started, Initiate Bowel Regimen: NA, Screen for Nausea/Vomitting: NA Code Status: 01/14/17 10:59 CODE [Resuscitation Status: Active] [RES] Routine Comment: Verified with daughter Uma Brewer 10:53 01/14 Resuscitation Status: [id number] - Labs CBC & Chem 7: 01/20/17 04:27 01/20/17 04:27 Labs: Laboratory Results - last 24 hr 01/19/17 01/19/17 01/19/17 11:58 13:14 17:40 WBC RBC Hgb Hct MCV MCH MCHC RDW Plt Count MPV Immature Gran % Seg Neutrophils % Lymphocytes % Monocytes % Eosinophils % Basophils % Neutrophils # Lymphocytes # Monocytes # Eosinophils # Basophils # Sodium Potassium Chloride Carbon Dioxide BUN Creatinine Est GFR ( Amer) Est GFR (Non-Af Amer) BUN/Creatinine Ratio Glucose POC Glucose 166 H 129 H Calculated Osmolality Calcium Phosphorus Magnesium Vancomycin Trough 13.6 01/19/17 01/20/17 01/20/17 23:51 04:27 04:27 WBC 11.0 RBC 3.07 L Hgb 9.4 L Hct 29.4 L MCV 95.8 MCH 30.6 MCHC 32.0 RDW 16.0 H Plt Count 809 H MPV 10.1 Immature Gran % 0.3 Seg Neutrophils % 72.6 Lymphocytes % 13.1 Monocytes % 9.9 Eosinophils % 3.7 Basophils % 0.4 Neutrophils # 8.0 Lymphocytes # 1.4 Monocytes # 1.1 Eosinophils # 0.4 Basophils # 0.0 Sodium 140 Potassium 3.8 Chloride 108 Carbon Dioxide 27 BUN 7 Creatinine 0.60 Est GFR ( Amer) > 60 Est GFR (Non-Af Amer) > 60 BUN/Creatinine Ratio 12 Glucose 124 H POC Glucose 103 H Calculated Osmolality 289 Calcium 8.2 L Phosphorus 3.7 Magnesium 1.5 L Vancomycin Trough - Impressions Impressions Gastrostomy Tube Placement 01/16/17 00:00 IMPRESSION: Successful gastrostomy to gastrojejunostomy under fluoroscopic guidance. No 18 Somali catheter was available that had a balloon, and therefore a 16.5 Somali malecot tube was used with both a gastrostomy and jejunostomy port. Given the angle of initial gastrostomy tube placement, this catheter is at risk for possible retraction of the fundus. Recommend periodic evaluation with KUB assure that the catheter has not retracted. This was discussed with Shireen Gusman with surgery immediately after the procedure. D/ / Hardik Bryant MD / Hardik Bryant MD Interpreting Provider: Hardik Bryant MD - ABG Interpretation ABG results: ABG ABG pH 7.46 pH Units (7.32-7.45) H 01/10/17 04:50 ABG pCO2 42 mmHg (35-45) 01/10/17 04:50 ABG pO2 76 mmHg (85-104) L 01/10/17 04:50 ABG O2 Saturation 96 % (95-98) 01/10/17 04:50 PT/INR, D-dimer PT 14.8 Seconds (9.4-12.1) H 01/09/17 02:37 Consult Discharge Plan - Plan Referrals: Mikie Etienne MD [Primary Care Provider] - 01/29/17 11:15 am
--- NOTE | 2017-01-20 13:57 | Event Note ---
Date of Encounter: 01/20/17 Time of Encounter: 13:30 Daughter Uma called my cell phone, stating that her phone "stopped working" and wondered if we were trying to get ahold of her. Discussed that we have to know her decision in order to proceed with discharge planning. Stated that she needs "2 weeks" to get home ready for patient. I explained that she is currently tolerating tube feeding well, and WBC back to normal, so I expected discharge within the next 1-2 days, when hospitalist ready. Stated that we can not keep her here at hospital for that length of time. She did state that she is agreeable with hospice care at home and wants to enroll in [facility] , however, she wants to enroll in respite care upon admission. I informed her she would have to discuss this with the [facility] hospice team. Tang Agustin notified of her decision and will be calling referral to [facility]. Uma states that she doesn't have a working phone until her boyfriend is home from work aat 1700 - and she will have this phone tomorrow. [phone].
[2017-01-20] MEDS: Levofloxacin 500 MG/100 ML 500 MG/100 ML BAG IVPB SCH (16:58)
--- NOTE | 2017-01-20 17:21 | Internal Med Progress Note ---
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 We will continue this with intravenous Ativan as needed for agitation and anxiety. Goal at this point for symptom control. No curative option available. (2) PEG (percutaneous endoscopic gastrostomy) status Current Visit: Yes Status: Chronic Assessment and plan: s/p PEG tube replacement continue tube feedings maintain aspiration precautions (3) Acute respiratory failure Current Visit: Yes Status: Acute Assessment and plan: secondary to aspiration PNA Continue empiric treatment with Levaquin and Flagyl and vancomycin. Blood cultures today negative. Respiratory status improving. Continue with high flow oxygen. Qualifiers: Respiratory failure complication: hypoxia Qualified Code(s): J96.01 - Acute respiratory failure with hypoxia (4) Counseling regarding advanced directives and goals of care Current Visit: Yes Status: Acute Assessment and plan: Patient is DNR/DNI. I have discussed the case with palliative care was following daily. They have addressed the CODE STATUS and goals of care with the family and plan to transition to hospice upon discharge. Appreciate palliative service recommendation. (5) Aspiration pneumonia Current Visit: Yes Status: Acute Assessment and plan: Aspiration precautions. Broad spectrum IV antibiotics to include coverage for gram-negative rods, gram-positive cocci and anaerobes. Follow-up cultures. She is at high risk due to IV vancomycin which requires blood level monitoring for toxicity. Qualifiers: Aspiration pneumonia type: due to regurgitated food Laterality: right Lung location: lower lobe of lung Qualified Code(s): J69.0 - Pneumonitis due to inhalation of food and vomit - Subjective Interval history: 01/20/2017: Patient cannot provide history due to advanced dementia and nonverbal state. She has been admitted to our service and received treatment for respiratory failure and aspiration pneumonia. Per RN the patient appears to be more animated when visited by family but she has nonverbal at baseline. - Constitutional Vitals: Temp Pulse Resp BP Pulse Ox 98.6 F 82 18 149/67 90 01/20/17 16:09 01/20/17 16:09 01/20/17 16:39 01/20/17 16:09 01/20/17 16:39 General appearance: Present: A&O X 0 (contracted, cachetic) - Respiratory Respiratory exam: Present: rales, wheezes. Absent: accessory muscle use, rhonchi - Cardiovascular Cardiovascular exam: Present: RRR, +S1, +S2. Absent: diastolic murmur, gallop, rubs, systolic murmur - GI/Abdominal GI/Abdominal exam: Present: normal bowel sounds, soft, no peritoneal signs. Absent: distended, tenderness Additional comments: PEG tube is present - Extremities Exam Extremities exam: Present: warm, radial pulses palpable and symetrical. Absent : calf tenderness, cyanotic, pedal edema Additional comments: Upper and lower extremity muscle atrophy. - Skin Skin exam: Present: dry, intact Internal Medicine: Result - Labs CBC & Chem 7: 01/20/17 04:27 01/20/17 04:27 Labs: Short CBC 01/20/17 Range/Units 04:27 WBC 11.0 (4.3-11.1) K/mcL Hgb 9.4 L (11.5-15.4) g/dL Hct 29.4 L (35.3-44.9) % Plt Count 809 H (140-400) K/mcL Neutrophils # 8.0 (1.6-8.9) K/mcL BMP 01/20/17 04:27 Sodium 140 Potassium 3.8 Chloride 108 Carbon Dioxide 27 BUN 7 Creatinine 0.60 Glucose 124 H Calcium 8.2 L - ABG Interpretation ABG results: ABG ABG pH 7.46 pH Units (7.32-7.45) H 01/10/17 04:50 ABG pCO2 42 mmHg (35-45) 01/10/17 04:50 ABG pO2 76 mmHg (85-104) L 01/10/17 04:50 ABG O2 Saturation 96 % (95-98) 01/10/17 04:50 PT/INR, D-dimer PT 14.8 Seconds (9.4-12.1) H 01/09/17 02:37 Consult Discharge Plan - Plan Referrals: Mikie Etienne MD [Primary Care Provider] - 01/29/17 11:15 am
[2017-01-21] MEDS: Vancomycin 1,000 MG in D5% in Water 250 ML IVPB SCH ×2 (00:20→10:37)
[2017-01-21] MEDS: Metoclopramide 10 MG/2 ML VIAL IVP SCH ×3 (00:20→10:37)
[2017-01-21] MEDS: Insulin LISPRO 300 UNITS/3 ML VIAL SQ SCH ×3 (00:25→12:25)
[2017-01-21] MEDS: Ipratropium/Albuterol Neb 3 ML IH SCH ×4 (00:35→11:01)
[2017-01-21] MEDS: MetroNIDAZOLE 500 MG/100 ML 500 MG/100 ML BAG IVPB SCH ×2 (01:23→10:36)
[2017-01-21] MEDS: Pantoprazole 40 MG VIAL IVP SCH (05:37)
[2017-01-21] MEDS: *HR* Heparin 5,000 UNIT/ML VIAL SQ SCH (05:37)
--- NOTE | 2017-01-21 09:14 | Palliative Progress Note ---
Date of Encounter: 01/21/17 Time of Encounter: 09:15 - Assessment and plan (1) Generalized pain Current Visit: Yes Status: Acute Assessment and plan: Continue Oxycodone if needed for pain (2) Constipation Current Visit: Yes Status: Resolved Assessment and plan: Continue Miralax. Bowels have been moving well Qualifiers: Constipation type: unspecified constipation type Qualified Code(s): K59.00 - Constipation, unspecified (3) Anxiety Current Visit: Yes Status: Acute Assessment and plan: Ativan PRN. (4) Counseling regarding advanced directives and goals of care Current Visit: Yes Status: Acute Assessment and plan: Spoke with Myrna from [facility] this am. Hospice nurse will come here to hospital to enroll pt and they will arrange transport to [facility] for respite care. Presriptions completed for Oxycodone and Ativan for Hospice. D/ W pt primary nurse Bill and notified Dr. 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 Oxygen currently at 10L. Smiles but no attempt to communicate. Tube feeding at goal and appears to be tolerating well. No family present - Constitutional Vitals: Abnormal lab results RBC 3.07 M/mcL (3.82-4.97) L 01/20/17 04:27 Hgb 9.4 g/dL (11.5-15.4) L 01/20/17 04:27 Hct 29.4 % (35.3-44.9) L 01/20/17 04:27 RDW 16.0 % (11.5-14.5) H 01/20/17 04:27 Plt Count 809 K/mcL (140-400) H 01/20/17 04:27 Nucleated RBCs/100 WBC 0.1 /100 WBC (0) H 01/12/17 05:29 Smudge Cells Present (Not Present) A 01/10/17 05:10 Toxic Granulation Present (Not Present) A 01/09/17 01:02 Dohle Bodies Present (Not Present) A 01/09/17 01:02 Platelet Estimate Marked Increase (Normal) H 01/17/17 04:55 PT 14.8 Seconds (9.4-12.1) H 01/09/17 02:37 APTT 69.5 Seconds (26.0-36.0) H D 01/10/17 18:20 ABG pH 7.46 pH Units (7.32-7.45) H 01/10/17 04:50 ABG pO2 76 mmHg (85-104) L 01/10/17 04:50 ABG HCO3 29.9 mEQ/L (21-27) H 01/10/17 04:50 ABG Total CO2 31.2 mEq/L (20-26) H 01/10/17 04:50 ABG Base Excess 5.5 mEq/L (-2.0 to 3.0) H 01/10/17 04:50 VBG pH 7.43 pH Units (7.32-7.42) H 01/07/17 14:46 VBG HCO3 30.5 mEq/L (21-27) H 01/07/17 14:46 Glucose 124 mg/dL (70-99) H 01/20/17 04:27 POC Glucose 113 (58-89) H 01/21/17 00:16 Calcium 8.2 mg/dL (8.6-10.8) L 01/20/17 04:27 Magnesium 1.5 mg/dL (1.6-2.6) L 01/20/17 04:27 AST 35 Units/L (5-34) H 01/19/17 03:30 Creatine Kinase 220 U/L (20-180) H 01/09/17 02:37 Troponin I 2.47 ng/mL (0-0.03) H* 01/09/17 07:12 C-Reactive Protein 315 mg/L (Less than 5) H 01/07/17 20:59 B-Natriuretic Peptide 773 pg/mL (0-100) H 01/09/17 02:37 Serum Total Protein 5.4 g/dL (6.0-8.3) L 01/19/17 03:30 Prealbumin 4.0 mg/dL (16.0-38.0) L 01/08/17 09:18 Albumin 1.8 g/dL (3.5-5.0) L 01/19/17 03:30 Globulin 3.6 g/dL (2.4-3.5) H 01/19/17 03:30 Albumin/Globulin Ratio 0.5 (1.1-2.2) L 01/19/17 03:30 Urine Clarity Cloudy (Clear) A 01/07/17 15:55 Urine Protein 30 mg/dL (Neg-Trace) H 01/07/17 15:55 Urine Blood Small (Negative) H 01/07/17 15:55 Urine Bilirubin Small (Negative) H 01/07/17 15:55 Ur Leukocyte Esterase Small (Negative) H 01/07/17 15:55 Urine Microscopic RBC 15-30 per hpf (0-3) H 01/07/17 15:55 Urine Microscopic WBC 15-30 per hpf (0-3) H 01/07/17 15:55 Ur Squamous Epith Cells Many per lpf (None-Few) H 01/07/17 15:55 Hyaline Casts Moderate per lpf (None-Few) H 01/07/17 15:55 Ur Culture Indicated? YES (NO) A 01/07/17 15:55 General appearance: Present: no acute distress - Respiratory Respiratory exam: Present: CTAB Additional comments: Oxygen remains at 10L - Cardiovascular Cardiovascular exam: Present: +S1, +S2 - GI/Abdominal GI/Abdominal exam: Present: normal bowel sounds, soft Additional comments: GJ tube intact with feeding - Extremities Exam Extremities exam: Present: normal capillary refill, normal inspection - Neurological Exam Neurological exam: Present: alert Additional comments: Does not verbalize, does not follow commands. Eyes open. smiles when spoken to - Skin Skin exam: Present: dry, pallor, warm Palliative Quality Palliative Quality: Screen for Code Status: Yes, Screen for Goals of Care: Yes, Screen for Pain: NA, If Pain Regimen Started, Initiate Bowel Regimen: NA, Screen for Nausea/Vomitting: NA Code Status: 01/14/17 10:59 CODE [Resuscitation Status: Active] [RES] Routine Comment: Verified with daughter Uma Brewer 10:53 01/14 Resuscitation Status: [id number] - Labs CBC & Chem 7: 01/20/17 04:27 01/20/17 04:27 Labs: Laboratory Results - last 24 hr 01/20/17 01/20/17 01/20/17 04:51 11:50 18:12 POC Glucose 121 H 125 H 141 H 01/21/17 00:16 POC Glucose 113 H - ABG Interpretation ABG results: ABG ABG pH 7.46 pH Units (7.32-7.45) H 01/10/17 04:50 ABG pCO2 42 mmHg (35-45) 01/10/17 04:50 ABG pO2 76 mmHg (85-104) L 01/10/17 04:50 ABG O2 Saturation 96 % (95-98) 01/10/17 04:50 PT/INR, D-dimer PT 14.8 Seconds (9.4-12.1) H 01/09/17 02:37 Consult Discharge Plan - Plan Referrals: Mikie Etienne MD [Primary Care Provider] - 01/29/17 11:15 am Prescriptions: OxyCODONE Immed Rel [Roxicodone 5 MG] 5 mg GTUBE Q6HR PRN #30 tablet PRN Reason: Pain LORazepam [Ativan] 0.5 mg GTUBE TID PRN #30 tablet PRN Reason: Anxiety
[2017-01-21] MEDS: Aspirin 325 MG TABLET GTUBE SCH (10:37)
[2017-01-21] MEDS ORDERED: Magnesium Oxide 400 MG TABLET PO SCH (11:00)
[2017-01-21 11:50] VITALS: BP 164/75
--- NOTE | 2017-01-21 12:59 | Discharge Summary ---
Date of Encounter: 01/21/17 Time of Encounter: 12:57 - Discharge Diagnosis (1) Cristina disease Priority: Secondary Status: Chronic (2) PEG (percutaneous endoscopic gastrostomy) status Priority: Secondary Status: Chronic (3) Acute respiratory failure Priority: Secondary Status: Acute Qualifiers: Respiratory failure complication: hypoxia Qualified Code(s): J96.01 - Acute respiratory failure with hypoxia (4) Aspiration pneumonia Priority: Primary Status: Acute Qualifiers: Aspiration pneumonia type: due to regurgitated food Laterality: right Lung location: lower lobe of lung Qualified Code(s): J69.0 - Pneumonitis due to inhalation of food and vomit - Discharge Medications Prescriptions: OxyCODONE Immed Rel [Roxicodone 5 MG] 5 mg GTUBE Q6HR PRN #30 tablet PRN Reason: Pain LORazepam [Ativan] 0.5 mg GTUBE TID PRN #30 tablet PRN Reason: Anxiety Home Medications: Bupropion HCl [Wellbutrin Xl] 300 mg PO DAILY 01/07/17 [History] Cetirizine HCl [Zyrtec] 10 mg PO DAILY 01/07/17 [History] Escitalopram [Lexapro] 20 mg PO DAILY 01/07/17 [History] Haloperidol [Haldol] 1.5 mg PO BID 01/07/17 [History] Lactose-Reduced Food [Ensure Plus] 1 bottle PO 5XD 01/07/17 [History] Naproxen [Naprosyn] 500 mg PO BID 01/07/17 [History] Omeprazole [PriLOSEC] 20 mg PO DAILY 01/07/17 [History] Simvastatin [Zocor] 40 mg PO HS 01/07/17 [History] Water for Irrigation (sterile) [Water for irrigation (sterile)] 100 ml IR 10XD 01/07/17 [History] traZODone [TraZODone] 50 mg PO HS PRN 01/07/17 [History] Ipratropium/Albuterol Neb [Duoneb] 3 ml IH Q6HR PRN #60 vial.neb 01/21/17 [Rx] LORazepam [Ativan] 0.5 mg GTUBE TID PRN #30 tablet 01/21/17 [Rx] OxyCODONE Immed Rel [Roxicodone 5 MG] 5 mg GTUBE Q6HR PRN #30 tablet 01/21/17 [ Rx] Allergies/Adverse Reactions: Allergies Penicillins Allergy (Verified 08/26/16 18:03) Rash Date of admission: 01/07/17 23:55 Primary care physician: Mikie Etienne MD Consults: 01/09/17 01:41 Consult to Cardiology [CONS] Routine Comment: Consulting Provider: Cardiology [place] Reason for Consult: NSTEMI Call Completed: No 01/09/17 07:34 Consult to Pulmonology [CONS] Routine Consulting Provider: Pulm [facility] Reason for Consult: respiratory failure. PNA Call Completed: Yes 01/09/17 10:11 Consult to Palliative Care [CONS] Routine Comment: Consulting Provider: Palliative Care [facility] Reason for Consult: Code status discussion Call Completed: No 01/16/17 07:50 Consult to Surgery [CONS] Routine Consulting Provider: Surgery [facility] Reason for Consult: PEG tube replacement Time Notified: 07:55 Call Completed: Yes 01/16/17 10:52 Consult to Interventional Radiology [CONS] Routine Consulting Provider: Radiology Interventional Cols Reason for Consult: placement of gastrojejunostomy tube- patient currently has a peg tube which was placed initially 08/2014. Now is aspiration risk and recommend GJ placement to decrease risk of aspiration. Time Notified: 10:53 Call Completed: Yes - Patient Status Disposition: Transfer SNF Condition: Serious Functional capacity at discharge: bed bound Overall status at discharge: patient is back to baseline - Discharge Instructions Follow Up With: Mikie Etienne MD [Primary Care Provider] - 01/29/17 11:15 am - Diet and Activity Activity: other (Bedrest) Diet: other (Nothing by mouth, resumed tube feeds.) Hospital course: Ms. Brewer is a 56 year old female with past medical history significant for advanced [place]'s disease and dementia, status post PEG tube placement who was brought to the hospital for evaluation of shortness of breath. She has nonverbal at baseline. She was found to have bilateral pneumonia likely secondary to aspiration of gastric contents. She was admitted to the medical service and treated with broad IV spectrum antibiotics including meropenem. Her course was complicated and she required transfer to ICU where she intubated and placed on mechanical ventilation for worsening respiratory failure and continued to receive treatment with intravenous antibiotics. She made a slow improvement over the following days and she was extubated and transferred to the medical floor. Her CODE STATUS was changed to DNR CCA DNI in accordance to discussion with the POA. Palliative care service was consulted. She completed treatment with IV antibiotics for pneumonia. Her respiratory status has improved significantly. She appears to be back to baseline. Her tube feeds have been restarted. The palliative care team had a discussion with the patient 's daughter and POA who agreed to allow the patient to be transferred to [facility] with the goal to her overall the patient on hospice. Patient is medically stable for discharge to alf facility. Please refer to the consultation notes and progress notes from for further details. - Time Spent with Patient Total time spent providing and/or coordinating discharge services: Greater than 30 minutes - Constitutional Vitals: Temp Pulse Resp BP Pulse Ox 98.6 F 78 18 164/75 94 01/21/17 11:44 01/21/17 11:44 01/21/17 11:44 01/21/17 11:44 01/21/17 11:44 General appearance: Present: A&O X 0 (contracted, cachetic) - Cardiovascular Cardiovascular exam: Present: RRR, +S1, +S2. Absent: diastolic murmur, gallop, rubs, systolic murmur - GI/Abdominal GI/Abdominal exam: Present: normal bowel sounds, soft, no peritoneal signs. Absent: distended, tenderness Additional comments: PEG tube is present in place - Skin Skin exam: Present: dry, intact
--- NOTE | 2017-01-21 13:12 | Physician Discharge Referral ---
ExtendedCare Referral Info Transfer To: SNF Provider in Charge after Transfer: PCP Institutional Level of Care: Intermediate - Diagnosis (1) Cristina disease Priority: Secondary Status: Chronic (2) PEG (percutaneous endoscopic gastrostomy) status Priority: Secondary Status: Chronic (3) Acute respiratory failure Priority: Secondary Status: Acute (4) Aspiration pneumonia Priority: Primary Status: Acute - Transfer Medications Prescriptions: Ipratropium/Albuterol Neb [Duoneb] 3 ml IH Q6HR PRN #60 vial.neb PRN Reason: wheezing OxyCODONE Immed Rel [Roxicodone 5 MG] 5 mg GTUBE Q6HR PRN #30 tablet PRN Reason: Pain LORazepam [Ativan] 0.5 mg GTUBE TID PRN #30 tablet PRN Reason: Anxiety Home Medications: Bupropion HCl [Wellbutrin Xl] 300 mg PO DAILY 01/07/17 [History] Cetirizine HCl [Zyrtec] 10 mg PO DAILY 01/07/17 [History] Escitalopram [Lexapro] 20 mg PO DAILY 01/07/17 [History] Haloperidol [Haldol] 1.5 mg PO BID 01/07/17 [History] Lactose-Reduced Food [Ensure Plus] 1 bottle PO 5XD 01/07/17 [History] Naproxen [Naprosyn] 500 mg PO BID 01/07/17 [History] Omeprazole [PriLOSEC] 20 mg PO DAILY 01/07/17 [History] Simvastatin [Zocor] 40 mg PO HS 01/07/17 [History] Water for Irrigation (sterile) [Water for irrigation (sterile)] 100 ml IR 10XD 01/07/17 [History] traZODone [TraZODone] 50 mg PO HS PRN 01/07/17 [History] Ipratropium/Albuterol Neb [Duoneb] 3 ml IH Q6HR PRN #60 vial.neb 01/21/17 [Rx] LORazepam [Ativan] 0.5 mg GTUBE TID PRN #30 tablet 01/21/17 [Rx] OxyCODONE Immed Rel [Roxicodone 5 MG] 5 mg GTUBE Q6HR PRN #30 tablet 01/21/17 [ Rx] Allergies/Adverse Reactions: Allergies Penicillins Allergy (Verified 08/26/16 18:03) Rash - Respiratory Orders Oxygen / L per min Smoking Cessation: Smoking cessation has been advised. For more information, call the [place] Tobacco Quit Line at 9-105-RTVE-NOW. - Advance Directives Living Will: No Power of [place] Bpm Developer: Yes Code Status: DNR-Arrest/Don't Intubate - Mobility Orders Bedrest - Rehabiliation Orders Rehab Potential: Poor (Nothing by mouth, continued tube feeds per current orders ) CERTIFICATION: I certify that the transfer of the above named patient to an Extended Care Facility is necessary for the continuing treatment of the diagnosis listed. The above information is true and accurate reflection of patient's current condition. Confidential - Redisclosure prohibited without a patient's written consent.
[2017-01-21] MEDS ORDERED: Aminoglycoside Consult 1 EACH MC ONE (14:30)
== END 2017-01-21 14:31 | DRG 720 ==
LOC: EMEROO 14:13 → 2NENU 14:13 → SUATTDRO 23:55 → ICNU 01-08 23:54 → 2NENU 01-16 19:12
PROVIDERS: ADMIT Nurse Practitioner Family; ATTEND Internal Medicine